=== PATIENT | male | born 1960 | race Caucasian/White ===

== ENCOUNTER 2020-09-11 07:03 | Emergency (ER) | payer MEDICAID, SELFPAY ==
--- NOTE | ~2020-09-11 | CT_ITS ---
EXAMINATION: CT ABDOMEN AND PELVIS WITH CONTRAST CLINICAL INFORMATION: Right lower quadrant pain. Rule out appendicitis. COMPARISON: Ultrasound abdomen 10/12/2012 TECHNIQUE: Multidetector volumetric images were obtained from the superior aspect of the liver through the pubic symphysis following administration 85 mL of Omnipaque 350 intravenous contrast. Sagittal and coronal reformatted images were obtained on the technologist's workstation. Oral contrast: No This CT examination was performed using dose optimization techniques as appropriate, variously including the following: Automated exposure control Adjustment of mA and/or kV according to patient size (this includes techniques or standardized protocols for targeted exams where dose is matched to indication/reason for exam; i.e. extremities or head) Use of iterative reconstruction technique DLP: 660 mGy-cm FINDINGS: LUNG BASES: There is bibasilar atelectasis. LIVER, GALLBLADDER, AND BILIARY TREE: No focal liver lesion. No biliary duct dilatation. Gallstones present. No acute pericholecystic inflammatory changes are seen. PANCREAS: Unremarkable. No acute inflammatory changes. SPLEEN: Unremarkable. ADRENAL GLANDS: Slightly bulky left adrenal gland. Right adrenal gland appears unremarkable. KIDNEYS AND URETERS: 2 mm calculus at the right ureterovesical junction. Mild right hydroureteronephrosis. [id number] right perinephric and mild right periureteral inflammatory changes. 1.4 cm left renal cyst. No left hydronephrosis. BLADDER: Unremarkable. GASTROINTESTINAL TRACT: Stomach is nondistended. No dilated small bowel loops. Moderate volume of fecal matter in the large colon. Scattered colonic diverticuli without diverticulosis. No pericolonic inflammatory changes. Appendix appears unremarkable. No free fluid. No free air. ABDOMINAL WALL: No significant hernia is appreciated. LYMPH NODES: No lymphadenopathy. VASCULAR: Normal caliber aorta. Scattered atherosclerotic vascular calcification. PELVIC VISCERA: Prostate measures 4.5 cm. Prostatic calcifications present. OSSEOUS STRUCTURES: Degenerative changes of the spine, more prominent at L4-L5, L5-S1. No acute or suspicious osseous abnormality. CT/CT abdomen pelvis w con IMPRESSION: 1. There is a 2 mm calculus at the right ureterovesicular junction, with mild right hydroureteronephrosis. [id number] right perinephric and mild right periureteral stranding. 2. Left renal 1.4 cm cyst. 3. Colonic diverticulosis without evidence of diverticulitis. Appendix appears unremarkable. 4. Cholelithiasis without CT evidence of cholecystitis. 5. Additional findings and details as above.
[2020-09-11 07:06] VITALS: BP 207/110; PULSE 71; RESP 18; TEMP 36.1; O2SAT 100; BMI 27.4
--- NOTE | 2020-09-11 07:49 | ECG_ITS ---
Test Reason : ABDOMINAL PAIN Blood Pressure : / mmHG Vent. Rate : 061 BPM Atrial Rate : 061 BPM P-R Int : 212 ms QRS Dur : 098 ms QT Int : 420 ms P-R-T Axes : 054 -16 019 degrees QTc Int : 422 ms Sinus rhythm with 1st degree A-V block Minimal voltage criteria for LVH, may be normal variant Borderline ECG No previous ECGs available Referred By: Darvin Aremnta Electronically Signed By:SAMANTHA GUILLEN MD
[2020-09-11] MEDS: 0.9 % Sodium Chloride 1,000 ML 999 ML IV (08:42)
[2020-09-11] MEDS: ondansetron HCL 4 MG/2 ML VIAL IVPUSH (08:42)
[2020-09-11] MEDS: Ketorolac Tromethamine 30 MG/ML VIAL IVPUSH (08:42)
[2020-09-11 08:55] LABS: MANUAL DIFF FLAG NO
[2020-09-11 08:58] LABS: Basophils Percent Auto 0.2 % (0-2); Eosinophils Absolute Auto 0.1 X10*3/uL (0.0-0.4); Eosinophils Percent Auto 1.3 % (0-4); Hematocrit 40.7 % (42-52); Hemoglobin 13.5 g/dl (14.0-18.0); Imm Gran Abs Auto 0.04 X10*3/uL (0.00-0.03); Imm Gran Pct Auto 0.4 % (0.0-0.4); Lymphocytes Absolute Auto 0.9 X10*3/uL (1.2-4.9); Lymphocytes Percent Auto 8.5 % (20-40); Mean Corpuscular HGB Conc 33.2 g/dl (31.0-36.0); Mean Corpuscular Hemoglobin 30.8 pg (27.0-33.0); Mean Corpuscular Volume 92.7 fL (80-98); Monocytes Absolute Auto 0.6 X10*3/uL (0.1-1.2); Monocytes Percent Auto 6.3 % (2-11); Neutrophils Absolute Auto 8.3 X10*3/uL (2.0-8.3); Neutrophils Percent Auto 83.3 % (45-73); Platelet Count 250 X10*3/uL (160-400); Red Blood Count 4.39 X10*6/uL (4.60-5.80)
[2020-09-11 09:30] VITALS: BP 133/72; PULSE 62; RESP 16; O2SAT 99
[2020-09-11 09:31] LABS: Lipase 18 U/L (8-78)
[2020-09-11 09:32] LABS: Alanine Aminotransferase 30 U/L (0-40); Albumin Level 4.4 g/dL (3.5-5.0); Alkaline Phosphatase 95 U/L (39-117); Anion Gap 15 (12-20); Aspartate Amino Transferase 24 U/L (5-37); Bilirubin Total 0.5 mg/dL (0.0-1.0); Blood Urea Nitrogen 21 mg/dL (9-16); Calcium 9.2 mg/dL (8.4-10.2); Carbon Dioxide 19 mmol/L (22-29); Chloride 107 mmol/L (96-108); Creatinine Clr Calc Pharmacy 91.5; Estimated Glomerular Filt Rate > 60; Glucose Random 100 mg/dL (60-115); Potassium 4.3 mmol/L (3.3-5.1); Sodium 137 mmol/L (135-145); Total Protein 7.1 g/dL (6.5-8.0)
[2020-09-11 10:26] LABS: Glucose Urine UA 100 MG/DL (NEG); Leukocyte Esterase Urine NEG (NEG); Nitrite Urine NEG (NEG); Urine Blood 2+ (NEG); Urine Ketones NEG (NEG); Urine Protein NEG (NEG-TRACE)
[2020-09-11 10:30] LABS: Appearance Urine CLEAR; Color Urine YELLOW
[2020-09-11] MEDS: iohexoL 350 MG/ML 100 ML INFUS..BTL IV (10:38)
[2020-09-11 10:39] LABS: Squamous Epithelial Cell Urine TRACE /LPF
[2020-09-11 11:03] LABS: INTERNATIONAL NORM RATIO 1.1 (0.9-1.1); Prothrombin Time 12.6 SEC (10.8-13.0)
--- NOTE | 2020-09-11 11:04 | ED_ITS ---
HPI - General Adult General Chief complaint: Abdominal Pain Stated complaint: Abd pain Time Seen by Provider: 09/11/20 07:45 Source: patient Mode of arrival: ambulatory Limitations: language barrier (Togolese speak) History of Present Illness HPI narrative: 60-year-old male who presents emergency department for evaluation of right lower quadrant pain. The patient states that the pain started suddenly at 4:00 a.m.. He describes the pain as a ?bad pain . He states the pain has been constant since onset and is 10/10, is associated nausea with no vomiting. He has dysuria and urge to urinate but is unable to urinate. He denies fever, chills, chest pain, shortness of breath, changes bowel movements. This is the patient's 1st episode of this type of pain. Related Data Previous Rx's Medication Instructions Recorded famotidine 20 mg tablet 20 mg PO DAILY #30 tab 04/22/20 Allergies Allergy/AdvReac Type Severity Reaction Status Date / Time No Known Allergies Allergy Verified 09/11/20 07:08 Review of Systems Review of Systems: Yes all other systems are reviewed and are negative Neurologic: Reports Abnormal speech present [facility] Past Medical History [facility] Narrative: Past medical history significant for hypertension, prostate cancer, arthritis, HIV positive. The patient smokes 1 pack of cigarettes per day times 20 years, denies alcohol use, he has a history of heroin use disorder and last use 3 months prior, is currently on methadone. Medical History HIV (human immunodeficiency virus infection) Social History Social History Advance Directives: No Advance Directives Information Provided: No Physical Exam Vital Signs: Vital Signs: Last Vital Signs Temp 97 F 09/11/20 07:06 Pulse 62 09/11/20 09:30 Resp 16 09/11/20 09:30 BP 133/72 09/11/20 09:30 Pulse Ox 99 09/11/20 09:30 Body Mass Index 27.4 Const: General: cooperative, in distress (Secondary to pain) moderate and anxious Orientation/consciousness: oriented to person and oriented to place Limitations: no limitations HENMT: Head: Yes normal to inspection, Yes normocephalic and Yes atraumatic Ears: external ears normal General nose exam: Normal external nose present Face and sinus: Yes normal facial exam Mouth: Normal oral and palatal mucosa present Throat: Yes posterior oropharynx normal Eyes: Periorbital: periorbital findings normal Eyelids: Yes eyelids normal Conjunctivae: conjunctivae normal Sclerae: sclerae normal Corneas: corneas normal Pupils: Equal, round and reactive pupils present Direct Ophthalmoscopy: normal light reflex Neck: Neck: Yes full ROM, Yes no lymphadenopathy, Yes no meningeal signs, Yes trachea midline and Yes supple Chest: Chest palpation & inspection: normal inspection of the chest and normal palpation of entire chest wall Resp: Effort & Inspection: normal respiratory effort and able to speak in complete sentences Auscultation: clear to auscultation bilaterally Cardio: Rate: regular rate Rhythm: regular rhythm Heart sounds: S1 normal heart sound present, S2 normal heart sound present and no murmurs GI: Inspection: Yes normal to inspection Palpation (GI): Soft to palpation, Tenderness to palpation present (GI) in the RLQ (Moderate), no guarding, not rigid and No hepatosplenomegaly present : General: Yes CVA tenderness on the right Back/Spine/Pelvis: Back: CVA tenderness Cervical Spine: normal cervical lordosis Thoracic/Lumbar Spine: thoracic and lumbar spine normal to inspection Skin: Lesions: no lesions Rashes: no rashes Wounds: no wounds Neuro: General: oriented to person, oriented to place and no meningeal signs Cranial nerves: Yes Equal, round and reactive pupils present Cognition (Neuro): normal cognition Speech: Abnormal speech present Motor exam (neuro): 5/5 motor strength present throughout Extrem: General: Yes normal to inspection and Yes full ROM Psych: Appearance: well kempt Mental Status: mental status grossly normal Speech and movement: Normal speech and movement present Affect: normal affect Attitude: cooperative Thought process: Normal thought process present Thought content: Normal thought content present Course Course Course Narrative: 60-year-old male who presents emergency department for evaluation of sudden onset of right lower quadrant abdominal pain, examination did reveal a right costovertebral tenderness in right lower quadrant tenderness. Differential includes was not limited to renal stone, appendicitis, colitis. Laboratory evaluation including CT scan of the abdomen pelvis without IV contrast was ordered. Patient's pain was treated with Toradol 30 mg IV and Zofran 4 mg IV. He also received normal saline IV x1 L. 1235: The patient's laboratory evaluation revealed a normal BUN and creatinine of 21 and 0.8. Urinalysis revealed 2+ blood and 10-[address] scan of the abdomen pelvis is consistent with a 2 mm ureteral stone at the UVJ. The patient did have several incidental findings including a left renal cyst, gallstones and diverticulosis which I did discuss with him. The patient is feeling significantly better and is pain free after the IV Toradol. He was advised to take ibuprofen and Tylenol for pain. Was advised to strain his urine and follow up with our on-call urologist. Medical Decision Making Lab Data Result diagrams: 09/11/20 08:28 09/11/20 08:28 Labs: Lab Results 09/11/20 09/11/20 09/11/20 Range/Units 08:28 08:28 08:28 WBC 10.0 (4.8-10.8) X10*3/uL RBC 4.39 L (4.60-5.80) X10*6/uL Hgb 13.5 L (14.0-18.0) g/dl Hct 40.7 L (42-52) % MCV 92.7 (80-98) fL MCH 30.8 (27.0-33.0) pg MCHC 33.2 (31.0-36.0) g/dl RDW 14.0 (11.0-16.0) % Plt Count 250 (160-400) X10*3/uL MPV 10.0 (9.4-12.4) fL Immature Gran % (Auto) 0.4 (0.0-0.4) % Neut % (Auto) 83.3 H (45-73) % Lymph % (Auto) 8.5 L (20-40) % [place] % (Auto) 6.3 (2-11) % Eos % (Auto) 1.3 (0-4) % Baso % (Auto) 0.2 (0-2) % Lymph # (Auto) 0.9 L (1.2-4.9) X10*3/uL [place] # (Auto) 0.6 (0.1-1.2) X10*3/uL Eos # (Auto) 0.1 (0.0-0.4) X10*3/uL Baso # (Auto) 0.0 (0.0-0.2) X10*3/uL Abs Immat Gran (auto) 0.04 H (0.00-0.03) X10*3/uL Absolute Neuts (auto) 8.3 (2.0-8.3) X10*3/uL Absolute Nucleated RBC 0.000 (0.0-0.012) X10*3/uL Nucleated RBC % (auto) 0.0 (0.0-0.2) /100WBC PT (10.8-13.0) SEC INR (0.9-1.1) APTT (24.1-38.0) SEC Sodium 137 (135-145) mmol/L Potassium 4.3 (3.3-5.1) mmol/L Chloride 107 (96-108) mmol/L Carbon Dioxide 19 L (22-29) mmol/L Anion Gap 15 (12-20) BUN 21 H (9-16) mg/dL Creatinine 0.86 (0.5-1.4) mg/dL Estim Creat Clear Calc 91.5 Estimated GFR > 60 Random Glucose 100 (60-115) mg/dL Calcium 9.2 (8.4-10.2) mg/dL Total Bilirubin 0.5 (0.0-1.0) mg/dL AST 24 (5-37) U/L ALT 30 (0-40) U/L Alkaline Phosphatase 95 (39-117) U/L Total Protein 7.1 (6.5-8.0) g/dL Albumin 4.4 (3.5-5.0) g/dL Lipase 18 (8-78) U/L Urine Color Urine Appearance Urine pH (5.0-8.0) Ur Specific [place] (1.005-1.025) Urine Protein (NEG-TRACE) MG/DL Urine Glucose (UA) (NEG) MG/DL Urine Ketones (NEG) MG/DL Urine Blood (NEG) Urine Nitrite (NEG) Ur Leukocyte Esterase (NEG) Urine RBC (0) /HPF Urine WBC (0-4) /HPF Ur Squamous Epith Cells /LPF Urine Bacteria /LPF 09/11/20 09/11/20 Range/Units 10:18 10:47 WBC (4.8-10.8) X10*3/uL RBC (4.60-5.80) X10*6/uL Hgb (14.0-18.0) g/dl Hct (42-52) % MCV (80-98) fL MCH (27.0-33.0) pg MCHC (31.0-36.0) g/dl RDW (11.0-16.0) % Plt Count (160-400) X10*3/uL MPV (9.4-12.4) fL Immature Gran % (Auto) (0.0-0.4) % Neut % (Auto) (45-73) % Lymph % (Auto) (20-40) % [place] % (Auto) (2-11) % Eos % (Auto) (0-4) % Baso % (Auto) (0-2) % Lymph # (Auto) (1.2-4.9) X10*3/uL [place] # (Auto) (0.1-1.2) X10*3/uL Eos # (Auto) (0.0-0.4) X10*3/uL Baso # (Auto) (0.0-0.2) X10*3/uL Abs Immat Gran (auto) (0.00-0.03) X10*3/uL Absolute Neuts (auto) (2.0-8.3) X10*3/uL Absolute Nucleated RBC (0.0-0.012) X10*3/uL Nucleated RBC % (auto) (0.0-0.2) /100WBC PT 12.6 (10.8-13.0) SEC INR 1.1 (0.9-1.1) APTT 36.5 (24.1-38.0) SEC Sodium (135-145) mmol/L Potassium (3.3-5.1) mmol/L Chloride (96-108) mmol/L Carbon Dioxide (22-29) mmol/L Anion Gap (12-20) BUN (9-16) mg/dL Creatinine (0.5-1.4) mg/dL Estim Creat Clear Calc Estimated GFR Random Glucose (60-115) mg/dL Calcium (8.4-10.2) mg/dL Total Bilirubin (0.0-1.0) mg/dL AST (5-37) U/L ALT (0-40) U/L Alkaline Phosphatase (39-117) U/L Total Protein (6.5-8.0) g/dL Albumin (3.5-5.0) g/dL Lipase (8-78) U/L Urine Color YELLOW Urine Appearance CLEAR Urine pH 7.0 (5.0-8.0) Ur Specific [place] 1.010 (1.005-1.025) Urine Protein NEG (NEG-TRACE) MG/DL Urine Glucose (UA) 100 H (NEG) MG/DL Urine Ketones NEG (NEG) MG/DL Urine Blood 2+ H (NEG) Urine Nitrite NEG (NEG) Ur Leukocyte Esterase NEG (NEG) Urine RBC 10-14 H (0) /HPF Urine WBC 1-4 (0-4) /HPF Ur Squamous Epith Cells TRACE /LPF Urine Bacteria NONE /LPF Discharge Plan Discharge Clinical Impression: Hydronephrosis with ureteral calculus, Renal colic on right side Patient Disposition: Home, Self-Care Instructions: Kidney Stones (ED), How to Strain Your Urine (ED) Additional Instructions: Your blood work was unremarkable. Your urinalysis revealed blood in your urine which is consistent with a kidney stone. The CT scan of your abdomen pelvis without IV contrast revealed a 2 mm the left ureteral (the tube the connection kidney to her bladder) stone at the UVJ (right where the tube from your kidney connects to the bladder). Take ibuprofen 200 mg pills, 3 pills every 6 hours as needed for pain. Take Tylenol (acetaminophen) 500 mg pills, 2 pills every 4 to 6 hours as needed for pain. Follow-up with our on-call urologist within 1-2 weeks. Please return to the emergency department if your symptoms get worse or if you develop any symptoms that are concerning to you. The CT scan also revealed the following incidental findings which are not related to your pain but you need to follow-up with your doctor did discuss these further. 1. Stones in your gallbladder 2. Left kidney cyst 3. Diverticulosis (small pockets in your colon) Prescriptions: No Action famotidine 20 mg tablet 20 mg PO DAILY Qty: 30 RF: 3 Referrals: Casey Argueta MD [Physician] - 2 weeks (Acute 2 mm right ureteral stone at the UVJ, left renal cyst)
[2020-09-11 11:06] LABS: Partial Thromboplastin Time 36.5 SEC (24.1-38.0)
== END 2020-09-11 12:51 | disposition home or self-care (01) ==
PROVIDERS: Emergency Provider Emergency Medicine Emergency Medical Services; PCP Internal Medicine Geriatric Medicine
DX: N13.2 Hydronephrosis with renal and ureteral calculous obstruction (principal); R10.31 Right lower quadrant pain; F17.210 Nicotine dependence, cigarettes, uncomplicated; F11.11 Opioid abuse, in remission; Z79.899 Other long term (current) drug therapy; Z71.6 Tobacco abuse counseling
CPT/HCPCS: 36415; 74177; 80053; 81001; 83690; 85025; 85610; 85730; 93005; 96361; 96365; 96375; 99284; J1885; J2405; Q9967

== ENCOUNTER 2020-09-30 14:41 | Outpatient (REF) | payer MEDICAID, SELFPAY | END 2020-09-30 14:42 | disposition home or self-care (01) | LOC: CF 14:41 | PROVIDERS: PCP Internal Medicine Geriatric Medicine; Visit Provider Urology | DX: N20.0 Calculus of kidney (principal) | CPT/HCPCS: 99202 ==

== ENCOUNTER 2020-10-05 15:21 | Outpatient (REF) | payer MEDICAID, SELFPAY ==
[2020-10-10 00:56] LABS: Stone Source KIDNEY
== END 2020-10-05 15:22 | disposition home or self-care (01) ==
LOC: HO.LAB 15:21
PROVIDERS: Visit Provider Urology
DX: N20.0 Calculus of kidney (principal)
CPT/HCPCS: 82365; 88300

== ENCOUNTER 2020-10-29 14:16 | Outpatient (REF) | payer MEDICAID, SELFPAY ==
[2020-10-29 15:28] LABS: COVID-19 Test Negative (Negative)
== END 2020-10-29 14:17 | disposition home or self-care (01) ==
LOC: HO.LAB 14:16
PROVIDERS: Visit Provider Internal Medicine
DX: Z20.822 Contact with and (suspected) exposure to COVID-19 (principal)
CPT/HCPCS: 36415; 87635; C9803

== ENCOUNTER → 2020-11-03 10:11 | Outpatient (BNVA) | payer MEDICAID, SELFPAY | PROVIDERS: PCP Internal Medicine Geriatric Medicine; Visit Provider Nurse Practitioner ==

== ENCOUNTER 2021-03-25 12:08 | Outpatient (REF) | payer MEDICAID, SELFPAY ==
--- NOTE | ~2021-03-25 | US_ITS ---
EXAMINATION: US RETROPERITONEAL LIMITED (RENAL ONLY) CLINICAL INFORMATION: Calculus of kidney. COMPARISON: CT abdomen and pelvis 09/11/2020. Ultrasound abdomen 10/12/2012. TECHNIQUE: Real-time imaging of the kidneys. FINDINGS: RIGHT KIDNEY: 10.1 x 6.3 x 5.9 cm (SAG x AP x TRV). The kidney is normal in size, contour, and echogenicity. Renal cortical thickness is normal. No calculi or focal parenchymal lesions. No hydronephrosis. LEFT KIDNEY: 10.1 x 5.2 x 5.3 cm (SAG x AP x TRV). The kidney is normal in size, contour, and echogenicity. Renal cortical thickness is normal. There is a 1.2 x 1.3 x 1.2 cm cyst in the upper pole. No renal calculi or hydronephrosis. US/US renal BI IMPRESSION: No stone seen. Small left renal cyst.
== END 2021-03-25 12:09 | disposition home or self-care (01) ==
LOC: HO.US 12:08
PROVIDERS: Visit Provider Urology
DX: N20.0 Calculus of kidney (principal)
CPT/HCPCS: 76775

== ENCOUNTER → 2021-04-08 12:12 | Outpatient (BNVA) | payer MEDICAID, SELFPAY | PROVIDERS: PCP Internal Medicine Geriatric Medicine; Visit Provider Urology ==

== ENCOUNTER → 2021-04-19 14:37 | Outpatient (BNVA) | payer MEDICAID, SELFPAY | PROVIDERS: PCP Internal Medicine Geriatric Medicine; Visit Provider Nurse Practitioner ==

== ENCOUNTER 2022-02-16 10:42 | Outpatient (REF) | payer MEDICAID, SELFPAY ==
[2022-02-16 11:15] LABS: MANUAL DIFF FLAG NO
[2022-02-16 11:25] LABS: Basophils Percent Auto 0.3 % (0-2); Eosinophils Absolute Auto 0.2 X10*3/uL (0.0-0.4); Eosinophils Percent Auto 2.4 % (0-4); Hematocrit 37.4 % (42.0-52.0); Hemoglobin 12.3 g/dl (14.0-18.0); Imm Gran Abs Auto 0.04 X10*3/uL (0.00-0.03); Imm Gran Pct Auto 0.6 % (0.0-0.4); Lymphocytes Absolute Auto 1.7 X10*3/uL (1.2-4.9); Lymphocytes Percent Auto 23.1 % (20-40); Mean Corpuscular HGB Conc 32.9 g/dl (31.0-36.0); Mean Corpuscular Hemoglobin 29.4 pg (27.0-33.0); Mean Corpuscular Volume 89.5 fL (80.0-98.0); Monocytes Absolute Auto 0.9 X10*3/uL (0.1-1.2); Neutrophils Absolute Auto 4.4 x10*3/uL (2.0-8.3); Neutrophils Percent Auto 61.6 % (45-73); Platelet Count 309 X10*3/uL (160-400); Red Blood Count 4.18 X10*6/uL (4.60-5.80); Red Cell Distribution Width 15.1 % (11.0-16.0); White Blood Count 7.1 X10*3/uL (4.8-10.8)
[2022-02-16 14:46] LABS: Anion Gap 16 (12-20); Blood Urea Nitrogen 20 mg/dL (9-16); Calcium 9.6 mg/dL (8.4-10.2); Carbon Dioxide 26 mmol/L (22-29); Chloride 104 mmol/L (96-108); Estimated Glomerular Filt Rate > 60; Glucose Random 118 mg/dL (60-115); Potassium 3.9 mmol/L (3.3-5.1); Sodium 142 mmol/L (135-145)
== END 2022-02-16 10:43 | disposition home or self-care (01) ==
LOC: HO.LAB 10:42
PROVIDERS: PCP Internal Medicine Geriatric Medicine; Visit Provider Family Medicine
DX: R60.0 Localized edema (principal); R31.29 Other microscopic hematuria; Z12.5 Encounter for screening for malignant neoplasm of prostate
CPT/HCPCS: 36415; 80048; 84153; 85025

== ENCOUNTER 2022-04-22 09:53 | Outpatient (REF) | payer MEDICAID, SELFPAY ==
--- NOTE | ~2022-04-22 | US_ITS ---
EXAMINATION: US RETROPERITONEAL LIMITED (RENAL ONLY) CLINICAL INFORMATION: Calculus of kidney. COMPARISON: Renal ultrasound 03/25/2021. CT abdomen and pelvis 09/11/2020. Ultrasound abdomen complete 10/12/2012. TECHNIQUE: Real-time imaging of the kidneys. FINDINGS: RIGHT KIDNEY: 10.3 x 5.8 x 5.1 cm (SAG x AP x TRV). The kidney is normal in size, contour, and echogenicity. Renal cortical thickness is normal. No calculi or focal parenchymal lesions. No hydronephrosis. LEFT KIDNEY: 10.1 x 5.4 x 5.4 cm (SAG x AP x TRV). The kidney is normal in size, contour, and echogenicity. Renal cortical thickness is normal. No renal calculi or hydronephrosis. There is anechoic cyst upper pole measuring 1.6 x 1.4 x 1.4 cm. US/US renal BI IMPRESSION: No echogenic stones, cysts or hydronephrosis. Anechoic cyst upper pole left kidney measuring 1.6 cm. On the last ultrasound of 03/25/2021, the cyst measured 1.3 cm.
== END 2022-04-22 09:54 | disposition home or self-care (01) ==
LOC: HO.US 09:53
PROVIDERS: Visit Provider Urology
DX: N20.0 Calculus of kidney (principal)
CPT/HCPCS: 76775

== ENCOUNTER 2023-03-10 13:39 | Outpatient (AMB) | payer MEDICAID, SELFPAY ==
--- NOTE | 2023-03-10 13:41 | A.OFFVIS_ITS ---
Intake Vital Signs 03/10/23 13:50 Height 5 ft 6 in Weight 188 lb 4.396 oz BMI 30.4 BP 190/75 H Blood Pressure Location Rt brachial Position Sitting Pulse 57 Intake Visit Reasons: Med Refill Intake Note: Patient presents to in office visit today in follow up of GERD. CC: Nausea in the mornings, GERD. Pt would like to obtain Ondansetron for nausea. 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 He continues on his omeprazole 20mg qam and famotidine 40mg qhs with good control of his GERD. He also continues on his senna with good control of his bowels. He denies any other GI problems, except for the nausea for which she was treated related to his anti-retroviral medications for his HIV infection. He is agreeable to a 6 month follow-up. (2) Constipation: ?Code(s): K59.00 - Constipation, unspecified ? ? ? Medications:?Refilled sennosides (senna) 17.2 mg (2 x 8.6 mg) PO BEDTIME 30 days 60 caps 6RF c onstipation K59.00 - Constipat ion, unspecified ? famotidine (Pepcid ) 40 mg? PO DAILY 3 0 days 30 tabs 6RF K21.9 - Gastro-eso phageal reflux dis ease without esoph agitis CORRESPONDENCE On 02/09/23 @ 07:46 Kya De Leon Wrote To Kya De Leon (2) No, they need to call their PCP (if you refill it, they likely will not show up for the appt). Or I will refill it when I see them On 02/08/23 @ 14:01 Akiko Conrad Wrote To Moises patient came into office to request refill for Zofran. patient last seen by you in . patient scheduled 02/17/23. please advise if okay to send refill. On 02/08/23 @ 13:56 Brielle Flaherty Wrote To Akiko Conrad has appointment 02/17 ondansetron HCl 4 mg tablet (Zofran) - 4 mg PO DAILY 30 tabs 6RF 30 days Last Rx written: 11/03/20 MoisesOctober TODAY'S VISIT [place] #Monica Daily He is not doing so well as he ran out of his medications. He has GERD and nausea. This was ok when he was on famotidine and senna. NO new medical conditions. Same pharmacy. MISTAKENLY THOUGHT THAT BECAUSE HE was checked for prostate cancer that this was the same is being screened for colon cancer. This prompts Education about the prostate being part of the urinary system which frequently confused this gentleman because the prostate exam occurs to the rectum. After explained to him he is quite agreeable to having a colonoscopy scheduled. He will need to go to update his labs for anesthesia and sedation purposes. There are no prior problems with anesthesia or sedation. He denies any cardiac or respiratory problems. He has HIV and is on antiretroviral therapy there are no other infectious disease problems known. He is also on chronic methadone treatment. There is no known family history of colon cancer or polyps. Return office visit in 6 weeks to make sure the medications are appropriately controlling his symptoms. [facility] Medical History (Updated 03/10/23 @ 14:12 by YAAKOV Davis) Prostate cancer HIV (human immunodeficiency virus infection) Surgical History History of esophagogastroduodenoscopy (EGD) Hx of removal of cyst Family History Family/Other No problems noted. Social History (Reviewed 03/10/23 @ 13:55 by Kehinde Perdomo [facility] Alcohol intake: current Alcohol intake frequency: does not drink Review of Systems Const Denies fatigue, Denies fever(s), Denies night sweats, Reports poor appetite and Denies weight loss ENT Reports Normal hearing present, Denies dental pain, Denies dysphagia, Denies hearing loss, Denies mouth pain, Denies odynophagia, Denies throat swelling, Denies tongue swelling and Reports other (Dentition adequate) Card Reports no additional complaints Resp Reports no additional complaints GI Denies abdominal pain, Denies melena, Denies bloating, Denies hematochezia, Reports constipation, Denies GI cramping, Denies dysphagia, Denies excessive flatus, Denies early satiety, Reports heartburn, Denies diarrhea, Reports nausea, Denies odynophagia, Denies vomiting and Denies hematemesis Skin/Breast Denies pruritus, Denies lesions, Denies rash and Denies jaundice Neuro Reports Normal hearing present and Denies Abnormal speech present Endo Denies fatigue Aller/Immun Denies throat swelling and Denies tongue swelling Physical Exam Vital Signs: Last Vital Signs Pulse 57 03/10/23 13:50 BP 190/75 H 03/10/23 13:50 BMI result Body Mass Index 30.4 Const General: cooperative, no acute distress, well developed and well groomed Nutritional Appearance: well nourished and obese Orientation/consciousness: oriented to person, oriented to place and oriented to time Limitations: language barrier HEENT Head: Yes normocephalic and Yes atraumatic Eyes General: appearance normal, both eyes and all related structures Pupils: Equal, round and reactive pupils present Neck Neck: Yes normal visual inspection and Yes no lymphadenopathy Thyroid: Thyroid normal Resp Effort & Inspection: normal respiratory effort and able to speak in complete sentences Auscultation: clear to auscultation bilaterally Cardio Rate: regular rate Rhythm: regular rhythm Heart sounds: Normal, physiologic split S2 sound present Peripheral pulses: radial pulses present and posterior tibial pulses present GI Inspection: No distended, No Abdominal panniculus present and Yes obesity Palpation (GI): Soft to palpation, nontender, no guarding, not rigid and No hepatosplenomegaly present Percussion: Yes normal to percussion Auscultation: normal bowel sounds Rectal Exam - Male: Yes deferred Skin General skin exam: no rashes or lesions noted, turgor normal, skin not dry, no jaundice, No spider nevi and no striae Rashes: no rashes Nails: normal Neuro General: oriented to person, oriented to place and oriented to time Cranial nerves: Yes Equal, round and reactive pupils present and Yes Normal hearing present Speech: No Abnormal speech present Extrem General: Yes normal to inspection, No clubbing, No cyanosis and No edema Psych Appearance: grossly normal and well kempt Mental Status: mental status grossly normal Speech and movement: Normal speech and movement present Affect: normal affect Attitude: cooperative Thought process: Normal thought process present and not confabulating Thought content: Normal thought content present Insight: Limited insight present (Psych) Judgement: Limited judgement present (Psych) Assessment & Plan Assessment & Plan (1) GERD (gastroesophageal reflux disease): Code(s): K21.9 - Gastro-esophageal reflux disease without esophagitis Plan: [place] #Armaneo Live He is not doing so well as he ran out of his medications. He has GERD and nausea. This was ok when he was on famotidine and senna. NO new medical conditions. Same pharmacy. MISTAKENLY THOUGHT THAT BECAUSE HE was checked for prostate cancer that this was the same is being screened for colon cancer. This prompts Education about the prostate being part of the urinary system which frequently confused this gentleman because the prostate exam occurs to the rectum. After explained to him he is quite agreeable to having a colonoscopy scheduled. He will need to go to update his labs for anesthesia and sedation purposes. There are no prior problems with anesthesia or sedation. He denies any cardiac or respiratory problems. He has HIV and is on antiretroviral therapy there are no other infectious disease problems known. He is also on chronic methadone treatment. There is no known family history of colon cancer or polyps. Return office visit in 6 weeks to make sure the medications are appropriately controlling his symptoms. (2) Constipation: Code(s): K59.00 - Constipation, unspecified (3) Prostate cancer: Comment: txed at [facility] 4 years ago Code(s): C61 - Malignant neoplasm of prostate (4) Pre-op examination: Code(s): Z01.818 - Encounter for other preprocedural examination (5) Colon cancer screening: Comment: No record of colonoscopy or screening in our system I suggest she discuss this with his primary care provider as he may have had a different facility Code(s): Z. - Encounter for screening for malignant neoplasm of colon Orders: Orders Comprehensive Met. Panel 03/10/23 Z - Encounter for other preprocedural examination Complete Blood Count Auto Diff 03/10/23 - Encounter for other preprocedural examination Colonoscopy - GI Use Only 03/10/23 Z - Encounter for other preprocedural examination Medications: New peg 3350-electrolytes 236-22.74-6.74 -5.86 gram (Golytely) until fecal effluent is clear; do not exceed a total volume of 2,000 mL 240 mL PO Q10M 4,000 mL 0RF 1 day Z06.26 - Encounter for screening for malignant neoplasm of colon Changed From ondansetron HCl 4 mg PO DAILY 30 days 30 tabs 6RF nausea and vomiting R11.2 - Nausea with vomiting, unspecified To ondansetron HCl 4 mg PO DAILY 30 tabs 6RF nausea and vomiting 30 days R11.2 - Nausea with vomiting, unspecified Refilled famotidine (Pepcid) 40 mg PO DAILY 30 tabs 6RF 30 days K21.9 - Gastro-esophageal reflux disease without esophagitis sennosides (senna) 17.2 mg (2 x 8.6 mg) PO BEDTIME 60 caps 6RF constipation 30 days K59.00 - Constipation, unspecified Coding Level of Care Code Est Pt Level 4 (66645) Diagnoses GERD (gastroesophageal reflux disease) K21.9 Constipation K59.00 Prostate cancer C61 Pre-op examination Z.818 Colon cancer screening Z06.26
[2023-03-10 13:50] VITALS: BP 190/75; PULSE 57; BMI 30.4
== END 2023-03-10 14:46 | disposition home or self-care (01) ==
PROVIDERS: PCP Internal Medicine Geriatric Medicine; Visit Provider Nurse Practitioner
DX: K21.9 Gastro-esophageal reflux disease without esophagitis (principal); K59.00 Constipation, unspecified; C61 Malignant neoplasm of prostate; Z01.818 Encounter for other preprocedural examination; Z12.11 Encounter for screening for malignant neoplasm of colon
CPT/HCPCS: 99214

== ENCOUNTER → 2023-03-10 13:39 | Outpatient (BNVA) | payer MEDICAID, SELFPAY | PROVIDERS: PCP Internal Medicine Geriatric Medicine; Visit Provider Nurse Practitioner | DX: Z01.818 Encounter for other preprocedural examination (principal); K21.9 Gastro-esophageal reflux disease without esophagitis; K59.00 Constipation, unspecified; C61 Malignant neoplasm of prostate | CPT/HCPCS: 99212 ==

== ENCOUNTER 2023-04-04 14:43 | Outpatient (REF) | payer MEDICAID, SELFPAY ==
[2023-04-04 15:01] LABS: MANUAL DIFF FLAG NO
[2023-04-04 15:38] LABS: Basophils Percent Auto 0.4 % (0-2); Eosinophils Absolute Auto 0.2 X10*3/uL (0.0-0.4); Hematocrit 39.8 % (42.0-52.0); Hemoglobin 13.1 g/dl (14.0-18.0); Imm Gran Abs Auto 0.05 X10*3/uL (0.00-0.03); Imm Gran Pct Auto 0.6 % (0.0-0.4); Mean Corpuscular HGB Conc 32.9 g/dl (31.0-36.0); Mean Corpuscular Hemoglobin 30.7 pg (27.0-33.0); Mean Corpuscular Volume 93.2 fL (80.0-98.0); Mean Platelet Volume 10.4 fL (9.4-12.4); Monocytes Absolute Auto 0.9 X10*3/uL (0.1-1.2); Monocytes Percent Auto 9.5 % (2-11); Neutrophils Absolute Auto 5.9 x10*3/uL (2.0-8.3); Neutrophils Percent Auto 65.5 % (45-73); Platelet Count 253 X10*3/uL (160-400); Red Blood Count 4.27 X10*6/uL (4.60-5.80); Red Cell Distribution Width 15.7 % (11.0-16.0)
[2023-04-04 16:51] LABS: Alanine Aminotransferase 32 U/L (0-40); Albumin Level 4.4 g/dL (3.5-5.0); Alkaline Phosphatase 80 U/L (39-117); Anion Gap 12 (12-20); Aspartate Amino Transferase 21 U/L (5-37); Bilirubin Total 0.3 mg/dL (0.0-1.0); Blood Urea Nitrogen 18 mg/dL (9-16); Carbon Dioxide 28 mmol/L (22-29); Chloride 106 mmol/L (96-108); Estimated Glomerular Filt Rate > 60; Glucose Random 105 mg/dL (60-115); Potassium 3.8 mmol/L (3.3-5.1); Sodium 142 mmol/L (135-145); Total Protein 7.4 g/dL (6.5-8.0)
== END 2023-04-04 14:44 | disposition home or self-care (01) ==
LOC: HO.LAB 14:43
PROVIDERS: Visit Provider Nurse Practitioner
DX: Z01.818 Encounter for other preprocedural examination (principal)
CPT/HCPCS: 36415; 80053; 85025

== ENCOUNTER 2023-04-21 11:09 | Outpatient (REF) | payer MEDICAID, SELFPAY ==
--- NOTE | ~2023-04-21 | XR_ITS ---
EXAMINATION: XR hand LT min 3V, XR hand RT min 3V CLINICAL INFORMATION: Pain and swelling COMPARISON: Wrist radiographs 11/27/2006 TECHNIQUE: 3 views of the bilateral hands FINDINGS: RIGHT HAND: No fracture or dislocation. Joint spaces are maintained. No cortical erosion. Soft tissue swelling along the dorsum of the hand. LEFT HAND: No fracture or dislocation. Joint spaces are maintained. No cortical erosion. Marked soft tissue swelling along the dorsum of the hand. XR/XR hand RT min 3V IMPRESSION: 1. Marked soft tissue swelling along the dorsum of the left hand and soft tissue swelling along the dorsum of the right hand, without definite acute underlying osseous abnormality.
--- NOTE | ~2023-04-21 | XR_ITS ---
EXAMINATION: XR hand LT min 3V, XR hand RT min 3V CLINICAL INFORMATION: Pain and swelling COMPARISON: Wrist radiographs 11/27/2006 TECHNIQUE: 3 views of the bilateral hands FINDINGS: RIGHT HAND: No fracture or dislocation. Joint spaces are maintained. No cortical erosion. Soft tissue swelling along the dorsum of the hand. LEFT HAND: No fracture or dislocation. Joint spaces are maintained. No cortical erosion. Marked soft tissue swelling along the dorsum of the hand. XR/XR hand LT min 3V IMPRESSION: 1. Marked soft tissue swelling along the dorsum of the left hand and soft tissue swelling along the dorsum of the right hand, without definite acute underlying osseous abnormality.
== END 2023-04-21 11:10 | disposition home or self-care (01) ==
LOC: HO.HHCL 11:09
PROVIDERS: Visit Provider Internal Medicine Geriatric Medicine
DX: R19.07 Generalized intra-abdominal and pelvic swelling, mass and lump (principal); R60.0 Localized edema; M79.641 Pain in right hand; M79.642 Pain in left hand
CPT/HCPCS: 73130; 82043; 82570

== ENCOUNTER 2023-04-25 14:01 | Outpatient (REF) | payer MEDICAID, SELFPAY ==
[2023-04-28 14:18] LABS: HCV Log PCR <1.18 NOT DETECTED Log IU/mL (NOT DETECTED); HepC Viral Load <15 NOT DETECTED IU/mL (NOT DETECTED)
== END 2023-04-25 14:02 | disposition home or self-care (01) ==
LOC: HO.LAB 14:01
PROVIDERS: PCP Internal Medicine Geriatric Medicine; Visit Provider Internal Medicine Geriatric Medicine
DX: R19.07 Generalized intra-abdominal and pelvic swelling, mass and lump (principal); R60.0 Localized edema; M79.641 Pain in right hand; M79.642 Pain in left hand
CPT/HCPCS: 36415; 80053; 83880; 85025; 86431; 87522

== ENCOUNTER 2023-05-04 14:48 | Outpatient (AMB) | payer MEDICAID, SELFPAY ==
[2023-05-04 14:50] VITALS: BP 114/56; PULSE 79; BMI 31.6
--- NOTE | 2023-05-04 14:50 | MHC.OFFVIS ---
Intake Vital Signs 05/04/23 14:50 Height 5 ft 6 in Weight 195 lb 12.328 oz BMI 31.6 BP 114/56 L Blood Pressure Location Rt brachial Position Sitting Pulse 79 Intake Visit Reasons: 6 weeks follow up Intake Note: Patient presents to in office visit today in follow up of GERD. CC: Patient reports occasional nausea, and heartburn. He states he would like to get the disintegrating ondansentron instead of the one he was prescribed. Denies other GI symptoms. 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 He has GERD and nausea. This was ok when he was on famotidine and senna. NO new medical conditions. Same pharmacy. MISTAKENLY THOUGHT THAT BECAUSE HE was checked for prostate cancer that this was the same is being screened for colon cancer. This prompts Education about the prostate being part of the urinary system which frequently confused this gentleman because the prostate exam occurs to the rectum. After explained to him he is quite agreeable to having a colonoscopy scheduled. He will need to go to update his labs for anesthesia and sedation purposes. There are no prior problems with anesthesia or sedation. He denies any cardiac or respiratory problems. He has HIV and is on antiretroviral therapy there are no other infectious disease problems known. He is also on chronic methadone treatment. There is no known family history of colon cancer or polyps. Return office visit in 6 weeks to make sure the medications are appropriately controlling his symptoms. (2) Constipation: Code(s): K59.00 - Constipation, unspecified (3) Prostate cancer: Comment: txed at [facility] 4 years ago Code(s): C61 - Malignant neoplasm of prostate (4) Pre-op examination: Code(s): Z01.818 - Encounter for other preprocedural examination (5) Colon cancer screening: Comment: No record of colonoscopy or screening in our system I suggest she discuss this with his primary care provider as he may have had a different facility Code(s): Z12.11 - Encounter for screening for malignant neoplasm of colon Orders: Orders Comprehensive Met. Panel 03/10/23 Z01.818 - Encounte r for other prepro cedural examinatio n Complete Blood Cou nt Auto Diff 03/10/23 Z01.818 - Encounte r for other prepro cedural examinatio n Colonoscopy - GI U se Only 03/10/23 Z01.818 - Encounte r for other prepro cedural examinatio n Medications: New peg 3350-electroly buddy 236-22.74-6.74 -5.86 gram (Golyt siva) until feca l effluent is pietro r; do not exceed a total volume of 2 ,000 mL 240 mL PO Q10M 4,0 00 mL 0RF 1 day Z12.11 - Encounter for screening for malignant neoplas m of colon Changed From ondansetron HCl 4 mg PO DAILY 30 days 30 tabs 6RF n ausea and vomiting R11.2 - Nausea wit h vomiting, unspec ified To ondansetron HCl 4 mg PO DAILY 30 t abs 6RF nausea and vomiting 30 days R11.2 - Nausea wit h vomiting, unspec ified Refilled famotidine (Pepcid ) 40 mg PO DAILY 30 tabs 6RF 30 days K21.9 - Gastro-eso phageal reflux dis ease without esoph agitis sennosides (senna) 17.2 mg (2 x 8.6 m g) PO BEDTIME 60 c aps 6RF constipati on 30 days K59.00 - Constipat ion, unspecified LABS: Laboratory Tests 04/25/23 14:21 WBC 7.1 Hgb 12.9 L Hct 38.3 L MCV 92.3 MCH 31.1 Plt Count 314 Estimated GFR > 60 Total Bilirubin 0.3 AST 23 ALT 38 Alkaline Phosphat ase 77 Hep C Viral Load <15 NOT DETECTED Hep C Viral Load L og <1.18 NOT DETECTE D COLONOSCOPY Scheduled for 05/31 but he has not received the letter promised BIOPSY CORRESPONDENCE On 02/09/23 @ 07:46 Kya De Leon Wrote To Kya De Leon (2) No, they need to call their PCP (if you refill it, they likely will not show up for the appt). Or I will refill it when I see them On 02/08/23 @ 14:01 Akiko Conrad Wrote To Moises patient came into office to request refill for Zofran. patient last seen by you in . patient scheduled 02/17/23. please advise if okay to send refill. On 02/08/23 @ 13:56 Brielle Flaherty Wrote To Akiko Conrad has appointment 02/17 ondansetron HCl 4 mg tablet (Zofran) - 4 mg PO DAILY 30 tabs 6RF 30 days Last Rx written: 11/03/20 MoisesOctober TODAY'S VISIT [place] #Christen Parker He still struggles with nausea dominic first thing in the am, and is requesting more zofran....BUT he is on methadone and this has too great a risk with prolongation of QT interval. Reglan does not have the same contraindication and although there is risk of sedation with his other medications this seems the lesser of the 2 evil spirits I will try giving him Reglan but I will not prescribe him Zofran, hydroxyzine, Phenergan or Compazine because of the QT contraindication. I explained this to him. He has a date upcoming for his colonoscopy and is in May. He is looking for them to [place] letter which I think has not happened yet just because were not close enough to the anticipated date. He verifies that he does have the prep at home. He feels like he is doing well on his famotidine for his GERD and his senna for the constipation. Return office visit in 3 months and of course after the colonoscopy. [facility] Medical History (Updated 05/04/23 @ 15:24 by YAAKOV Davis) Prostate cancer HIV (human immunodeficiency virus infection) Surgical History History of esophagogastroduodenoscopy (EGD) Hx of removal of cyst Family History Family/Other No problems noted. Social History Alcohol intake: current Alcohol intake frequency: does not drink Review of Systems Const Denies fatigue, Denies fever(s), Denies night sweats, Denies poor appetite and Denies weight loss Eyes Details: glasses Reports requires corrective lenses ENT Reports Normal hearing present, Denies dental pain, Denies dysphagia, Denies hearing loss, Denies mouth pain, Denies odynophagia, Denies throat swelling, Denies tongue swelling and Reports other (Dentition adequate) Card Reports no additional complaints Resp Reports no additional complaints GI Denies abdominal pain, Denies melena, Denies bloating, Denies hematochezia, Reports constipation, Denies GI cramping, Denies dysphagia, Denies excessive flatus, Denies early satiety, Reports heartburn, Denies diarrhea, Reports nausea, Denies odynophagia, Denies vomiting and Denies hematemesis Skin/Breast Denies pruritus, Denies lesions, Denies rash and Denies jaundice Neuro Reports Normal hearing present and Denies Abnormal speech present Endo Denies fatigue Aller/Immun Denies throat swelling and Denies tongue swelling Physical Exam Vital Signs: BMI result Body Mass Index 31.6 Const General: cooperative, no acute distress, well developed and well groomed Nutritional Appearance: well nourished and obese centrally obese Orientation/consciousness: oriented to person, oriented to place and oriented to time Limitations: language barrier HEENT Head: Yes normocephalic and Yes atraumatic Eyes General: appearance normal, both eyes and all related structures Pupils: Equal, round and reactive pupils present Neck Neck: Yes normal visual inspection and Yes no lymphadenopathy Thyroid: Thyroid normal Resp Effort & Inspection: normal respiratory effort and able to speak in complete sentences Auscultation: clear to auscultation bilaterally Cardio Rate: regular rate Rhythm: regular rhythm Heart sounds: Normal, physiologic split S2 sound present Peripheral pulses: radial pulses present and posterior tibial pulses present GI Inspection: No distended, No Abdominal panniculus present and Yes obesity Palpation (GI): Soft to palpation, nontender, no guarding, not rigid and No hepatosplenomegaly present Percussion: Yes normal to percussion Auscultation: normal bowel sounds Rectal Exam - Male: Yes deferred Skin General skin exam: no rashes or lesions noted, turgor normal, skin not dry, no jaundice, No spider nevi and no striae Rashes: no rashes Nails: normal Neuro General: oriented to person, oriented to place and oriented to time Cranial nerves: Yes Equal, round and reactive pupils present and Yes Normal hearing present Speech: No Abnormal speech present Extrem General: Yes normal to inspection, No clubbing, No cyanosis and No edema Psych Appearance: grossly normal and well kempt Mental Status: mental status grossly normal Speech and movement: Normal speech and movement present Affect: normal affect Attitude: cooperative Thought process: Normal thought process present and not confabulating Thought content: Normal thought content present Insight: Limited insight present (Psych) Judgement: Limited judgement present (Psych) Assessment & Plan Assessment & Plan (1) Nausea and vomiting: Code(s): R11.2 - Nausea with vomiting, unspecified Plan: [place] #Christen LIve He still struggles with nausea dominic first thing in the am, and is requesting more zofran....BUT he is on methadone and this has too great a risk with prolongation of QT interval. Reglan does not have the same contraindication and although there is risk of sedation with his other medications this seems the lesser of the 2 evil spirits I will try giving him Reglan but I will not prescribe him Zofran, hydroxyzine, Phenergan or Compazine because of the QT contraindication. I explained this to him. He has a date upcoming for his colonoscopy and is in May. He is looking for them to [facility] letter which I think has not happened yet just because were not close enough to the anticipated date. He verifies that he does have the prep at home. He feels like he is doing well on his famotidine for his GERD and his senna for the constipation. Return office visit in 3 months and of course after the colonoscopy. (2) Constipation: Code(s): K59.00 - Constipation, unspecified (3) GERD (gastroesophageal reflux disease): Code(s): K21.9 - Gastro-esophageal reflux disease without esophagitis (4) Patient on methadone maintenance therapy: Code(s): F11.20 - Opioid dependence, uncomplicated Medications: New metoclopramide HCl (Reglan) provider aware of potential interaction with seroquel and is monitoring 5 mg PO BID 60 tabs 3RF R11.2 - Nausea with vomiting, unspecified Refilled famotidine (Pepcid) 40 mg PO DAILY 30 days 30 tabs 6RF K21.9 - Gastro-esophageal reflux disease without esophagitis sennosides (senna) 17.2 mg (2 x 8.6 mg) PO BEDTIME 30 days 60 caps 6RF constipation K59.00 - Constipation, unspecified Discontinued ondansetron HCl Discontinued Reason: Doctor's Order 4 mg PO DAILY 30 days 30 tabs 6RF nausea and vomiting R11.2 - Nausea with vomiting, unspecified Coding Level of Care Code Est Pt Level 3 (16136) Diagnoses Nausea and vomiting R11.2 Constipation K59.00 GERD (gastroesophageal reflux disease) K21.9 Patient on methadone maintenance therapy F11.20
== END 2023-05-04 15:24 | disposition home or self-care (01) ==
PROVIDERS: PCP Internal Medicine Geriatric Medicine; Visit Provider Nurse Practitioner
DX: R11.2 Nausea with vomiting, unspecified (principal); K59.00 Constipation, unspecified; K21.9 Gastro-esophageal reflux disease without esophagitis; F11.20 Opioid dependence, uncomplicated
CPT/HCPCS: 99213

== ENCOUNTER → 2023-05-04 14:48 | Outpatient (BNVA) | payer MEDICAID, SELFPAY | PROVIDERS: PCP Internal Medicine Geriatric Medicine; Visit Provider Nurse Practitioner | DX: K21.9 Gastro-esophageal reflux disease without esophagitis (principal); K59.00 Constipation, unspecified; R11.2 Nausea with vomiting, unspecified; F11.20 Opioid dependence, uncomplicated | CPT/HCPCS: 99212 ==

== ENCOUNTER 2023-05-17 14:07 | Outpatient (REF) | payer MEDICAID, SELFPAY ==
--- NOTE | ~2023-05-17 | US_ITS ---
EXAMINATION: US RETROPERITONEAL LIMITED (RENAL ONLY) CLINICAL INFORMATION: Calculus of kidney. COMPARISON: Ultrasound retroperitoneal limited 04/22/2022 and 03/25/2021. CT abdomen and pelvis with contrast 09/11/2020. TECHNIQUE: Real-time imaging of the kidneys. FINDINGS: RIGHT KIDNEY: 11.2 x 6.3 x 5.6 cm (SAG x AP x TRV). The kidney is normal in size, contour, and echogenicity. Renal cortical thickness is normal. No renal calculi or hydronephrosis. Cystic focus right renal interpolar region measuring up to 1.2 cm, simple appearing, not requiring follow-up. LEFT KIDNEY: 10.3 x 5.0 x 4.5 cm (SAG x AP x TRV). The kidney is normal in size, contour, and echogenicity. Renal cortical thickness is normal. No renal calculi or hydronephrosis. Cystic focus left renal upper pole measuring up to 1.8 cm, simple appearing, not requiring follow-up. US/US renal BI IMPRESSION: 1. No nephrolithiasis or hydronephrosis. 2. Bilateral simple appearing renal cysts the largest measuring up to 1.8 cm, which do not require follow-up.
== END 2023-05-17 14:08 | disposition home or self-care (01) ==
LOC: HO.US 14:07
PROVIDERS: PCP Internal Medicine Geriatric Medicine; Visit Provider Urology
DX: N20.0 Calculus of kidney (principal)
CPT/HCPCS: 76775

== ENCOUNTER 2023-06-12 12:43 | Outpatient (REF) | payer MEDICAID, SELFPAY ==
[2023-06-12 13:15] LABS: MANUAL DIFF FLAG NO
[2023-06-12 13:50] LABS: Basophils Percent Auto 0.3 % (0-2); Eosinophils Absolute Auto 0.1 X10*3/uL (0.0-0.4); Eosinophils Percent Auto 1.7 % (0-4); Hematocrit 40.1 % (42.0-52.0); Imm Gran Abs Auto 0.03 X10*3/uL (0.00-0.03); Imm Gran Pct Auto 0.4 % (0.0-0.4); Lymphocytes Percent Auto 25.7 % (20-40); Mean Corpuscular HGB Conc 32.4 g/dl (31.0-36.0); Mean Corpuscular Hemoglobin 30.5 pg (27.0-33.0); Mean Corpuscular Volume 94.1 fL (80.0-98.0); Mean Platelet Volume 10.7 fL (9.4-12.4); Monocytes Absolute Auto 0.5 X10*3/uL (0.1-1.2); Monocytes Percent Auto 6.1 % (2-11); Neutrophils Absolute Auto 5.1 x10*3/uL (2.0-8.3); Neutrophils Percent Auto 65.8 % (45-73); Platelet Count 240 X10*3/uL (160-400); Red Blood Count 4.26 X10*6/uL (4.60-5.80); Red Cell Distribution Width 14.3 % (11.0-16.0); White Blood Count 7.7 X10*3/uL (4.8-10.8)
[2023-06-12 14:15] LABS: Alanine Aminotransferase 23 U/L (0-40); Albumin Level 4.6 g/dL (3.5-5.0); Alkaline Phosphatase 100 U/L (39-117); Anion Gap 15 (12-20); Aspartate Amino Transferase 15 U/L (5-37); Bilirubin Total 0.5 mg/dL (0.0-1.0); Blood Urea Nitrogen 14 mg/dL (9-16); Calcium 9.7 mg/dL (8.4-10.2); Carbon Dioxide 25 mmol/L (22-29); Chloride 105 mmol/L (96-108); Estimated Glomerular Filt Rate > 60; Glucose Random 170 mg/dL (60-115); Potassium 3.7 mmol/L (3.3-5.1); Sodium 141 mmol/L (135-145); Total Protein 7.6 g/dL (6.5-8.0)
[2023-06-12 14:16] LABS: Cholesterol 144 mg/dL (<200); HDL Cholesterol 35 mg/dL (>40); LDL Cholesterol Calculated 93 mg/dL (<100); Triglycerides 82 mg/dL (<150)
[2023-06-12 14:24] LABS: Reflex LDLD? No
[2023-06-13 10:03] LABS: Absolute CD3 Count 1683 cells/uL (840-3060); Absolute CD4 Count 329 cells/uL (490-1740); Absolute CD8 Count 1302 cells/uL (180-1170); Absolute Lymphocytes 2223 cells/uL (850-3900); CD4 CD8 Ratio 0.25 (0.86-5.00); Percent CD3 Cells 76 % (57-85); Percent CD4 Cells 15 % (30-61); Percent CD8 Cells 59 % (12-42)
[2023-06-13 14:54] LABS: HIV RNA PCR Qn Copies NOT DETECTED copies/mL (NOT DETECTED); HIV RNA PCR Qn Log Copies NOT DETECTED (NOT DETECTED)
[2023-06-14 10:49] LABS: RPR Rapid Plasma Reagin NON-REACTIVE (NON-REACTIVE)
== END 2023-06-12 12:44 | disposition home or self-care (01) ==
LOC: HO.LAB 12:43
PROVIDERS: Absent Provider Internal Medicine; PCP Internal Medicine Geriatric Medicine; Visit Provider Internal Medicine Geriatric Medicine
DX: B20 Human immunodeficiency virus [HIV] disease (principal)
CPT/HCPCS: 36415; 80053; 80061; 85025; 86359; 86360; 86592; 87536

== ENCOUNTER → 2023-06-14 09:42 | Outpatient (BNVA) | payer MEDICAID, SELFPAY | PROVIDERS: PCP Internal Medicine Geriatric Medicine; Visit Provider Nurse Practitioner ==

== ENCOUNTER 2023-07-19 09:14 | Outpatient (REF) | payer MEDICAID, SELFPAY | END 2023-07-19 09:15 | disposition home or self-care (01) | LOC: HO.US 09:14 | PROVIDERS: PCP Internal Medicine Geriatric Medicine; Visit Provider Internal Medicine Geriatric Medicine | DX: R19.07 Generalized intra-abdominal and pelvic swelling, mass and lump (principal) | CPT/HCPCS: 76700 ==

== ENCOUNTER 2023-07-21 12:41 | Outpatient (AMB) | payer MEDICAID, SELFPAY ==
--- NOTE | 2023-07-21 13:09 | MHC.OFFVIS ---
Intake Intake Visit Reasons: 1y/US Intake Note: Patient is Present for Follow Up Ultrasound Urology Medication: Sildenafil Antibiotic Allergies:None Blood Thinners: None Allergies No Known Allergies Allergy (Verified 06/05/23 08:35) Medication List - Last Reconciled 07/21/23 by Casey Argueta MD chlorthalidone 25 mg PO DAILY diclofenac sodium 1% grams topical DAILY rdfwkkquku-fqqowyth-quecnq ala 200-25-25 mg (Odefsey) 1 tab PO DAILY famotidine (Pepcid) 40 mg PO DAILY 30 days methadone 85 mg PO DAILY metoclopramide HCl (Reglan) 5 mg PO BID peg 3350-electrolytes 236-22.74-6.74 -5.86 gram (Golytely) 240 mL PO Q10M 1 day prazosin 2 mg PO TID quetiapine (Seroquel) 400 mg PO BID sennosides (senna) 17.2 mg (2 x 8.6 mg) PO BEDTIME 30 days sildenafil (Viagra) 100 mg PO DAILY PRN spironolactone 50 mg PO QAM HPI HPI Comments History of Present Illness Details Christoph is a pleasant male. He is a patient of Dr. Alaniz. He is seen for the following urologic conditions - nephrolithiasis Malaysian translation provided in office by qualified medical clinic manager Discussed imaging findings No evidence of stones Twelve month follow-up Nephrolithiasis Seen in the emergency room late August 2020 No prior stone None on family stone history Stone analysis - mucous - background HIV/methadone Imaging - 10/04 CT scan distal right ureteric stone with mild hydronephrosis - 03/06 renal ultrasound no stones, small cyst on left kidney - 05/07 renal ultrasound no stones, of 1.6 cm cyst left kidney stable - 05/08 renal ultrasound no stones Therapeutic plan - encourage fluid intake - surveillance imaging [facility] Medical History Prostate cancer HIV (human immunodeficiency virus infection) Surgical History History of esophagogastroduodenoscopy (EGD) Hx of removal of cyst Family History Family/Other No problems noted. Social History Alcohol intake: current Alcohol intake frequency: does not drink Review of Systems Const Denies chills and Denies fever(s) Card Reports no additional complaints and Denies syncope Resp Denies cough GI Denies abdominal pain and Denies heartburn Reports as per HPI and Denies change in libido Neuro Denies syncope Psych Denies change in libido Endo Denies change in libido Physical Exam Const General: cooperative, healthy appearing, comfortable and no acute distress Orientation/consciousness: patient oriented x3 HEENT Face and sinus: Yes normal facial exam Mouth: moist mucous membranes Neck Neck: Yes normal visual inspection, Yes full ROM and Yes trachea midline Chest Chest palpation & inspection: normal inspection of the chest Resp Effort & Inspection: normal respiratory effort, able to speak in complete sentences and no respiratory distress GI Inspection: Yes normal to inspection Back/Spine/Pelvis Cervical Spine: normal cervical lordosis Thoracic/Lumbar Spine: thoracic and lumbar spine normal to inspection Skin General skin exam: no rashes or lesions noted Neuro General: patient oriented x3, gait normal, tone normal and moves all extremities Extrem General: Yes normal to inspection and Yes capillary refill normal Assessment & Plan Assessment & Plan (1) Nephrolithiasis: Code(s): N20.0 - Calculus of kidney Plan Twelve month follow-up Orders: Orders US renal BI 364 Days N20.0 - Calculus of kidney Patient Instructions: Imaging studies, laboratory and physical exam results were discussed and reviewed in detail. No major barriers to patient understanding were identified. An opportunity to ask questions regarding the treatment plan was provided. All questions were answered. The patient expressed understanding and agreement with the above treatment plan. The patient is aware they should contact our office by phone for worsening of their current condition or the appearance of new urologic symptoms. Compliance is encouraged with any medications and followup testing that is ordered. It is a privilege to participate in the urologic care of your patient. If you have any questions or concerns regarding treatment for the above conditions, or other urologic issues, please do not hesitate to contact me. The office telephone contact is [phone]. This note is constructed using voice recognition software. While every effort has been made to ensure accuracy back maker errors may have been included. Yours sincerely, Dr Casey Argueta MD, [facility] - Urology Providers of Expert, Compassionate Care for the Genitourinary System Coding Level of Care Code Est Pt Level 4 (71797) Diagnoses Nephrolithiasis N20.0
== END 2023-07-21 13:23 | disposition home or self-care (01) ==
PROVIDERS: PCP Internal Medicine Geriatric Medicine; Referring Provider Internal Medicine Geriatric Medicine; Visit Provider Urology
DX: N20.0 Calculus of kidney (principal)
CPT/HCPCS: 99213

== ENCOUNTER → 2023-07-21 12:41 | Outpatient (BNVA) | payer MEDICAID, SELFPAY | PROVIDERS: PCP Internal Medicine Geriatric Medicine; Visit Provider Urology | DX: N20.0 Calculus of kidney (principal) | CPT/HCPCS: 99212 ==

== ENCOUNTER 2023-08-04 14:36 | Outpatient (AMB) | payer MEDICAID, SELFPAY ==
--- NOTE | 2023-08-04 14:43 | MHC.OFFVIS ---
Intake Vital Signs 08/04/23 14:45 Height 5 ft 6 in Weight 189 lb 9.561 oz BMI 30.6 BP 117/57 L Blood Pressure Location Lt brachial Position Sitting Pulse 72 Intake Visit Reasons: Follow up 3 months Intake Note: Patient presents to in office visit today in follow up of GERD. CC: Patient reports occasional nausea, and heartburn. He states he would like to get the disintegrating ondansentron instead of the one he was prescribed. Denies other GI symptoms. Adult Psychiatrist Required: Yes Allergies No Known Allergies Allergy (Verified 08/04/23 14:47) HPI Follow up 3 months HPI Details Assessment & Plan (1) Nausea and vomiting: Code(s): R11.2 - Nausea with vomiting, unspecified Plan: [place] #Christen LIve He still struggles with nausea dominic first thing in the am, and is requesting more zofran....BUT he is on methadone and this has too great a risk with prolongation of QT interval. Reglan does not have the same contraindication and although there is risk of sedation with his other medications this seems the lesser of the 2 evil spirits I will try giving him Reglan but I will not prescribe him Zofran, hydroxyzine, Phenergan or Compazine because of the QT contraindication. I explained this to him. He has a date upcoming for his colonoscopy and is in May. [facility] which I think has not happened yet just because were not close enough to the anticipated date. He verifies that he does have the prep at home. He feels like he is doing well on his famotidine for his GERD and his senna for the constipation. Return office visit in 3 months and of course after the colonoscopy. (2) Constipation: Code(s): K59.00 - Constipation, unspecified (3) GERD (gastroesophageal reflux disease): Code(s): K21.9 - Gastro-esophageal reflux disease without esophagitis (4) Patient on methadone maintenance therapy: Code(s): F11.20 - Opioid dependence, uncomplicated Medications: New metoclopramide HCl (Reglan) provi raysa aware of poten tial interaction w ith seroquel and i s monitoring 5 mg PO BID 60 ta bs 3RF R11.2 - Nausea wit h vomiting, unspec ified Refilled famotidine (Pepcid ) 40 mg PO DAILY 30 days 30 tabs 6RF K21.9 - Gastro-eso phageal reflux dis ease without esoph agitis sennosides (senna) 17.2 mg (2 x 8.6 m g) PO BEDTIME 30 d ays 60 caps 6RF co nstipation K59.00 - Constipat ion, unspecified Discontinued ondansetron HCl Discontinued Reas on: Doctor's Orde r 4 mg PO DAILY 30 days 30 tabs 6RF n ausea and vomiting R11.2 - Nausea wit h vomiting, unspec ified COLONOSCOPY SCHEDULED FOR 09/05 BIOPSY TODAY'S VISIT [place] #Malcolm, Live He says he received the Reglan but that does not work as well as Zofran. I asked how often he is taking it any tells me just once a day and I educate him that he can actually take it twice a day quite safely. He was not aware of this and he will implement this as he did find the nausea was breaking through later in the day which would make sense. He is aware that he has his colonoscopy coming up, is aware of the prep and has all of the relevant information at home. He continues on his famotidine and has senna to use as needed for constipation. There are no prior problems with anesthesia or sedation. He denies any cardiac or respiratory problems. He has HIV and is on antiretroviral therapy there are no other infectious disease problems known. He is also on chronic methadone treatment. There is no known family history of colon cancer or polyps. Will schedule him for a follow-up about a week after his colonoscopy in August so I will have those results. [facility] Medical History (Updated 08/04/23 @ 14:47 by YAAKOV Davis) Pre-op examination Prostate cancer HIV (human immunodeficiency virus infection) Surgical History History of esophagogastroduodenoscopy (EGD) Hx of removal of cyst Family History Family/Other No problems noted. Social History Alcohol intake: current Alcohol intake frequency: does not drink Review of Systems Const Denies fatigue, Denies fever(s), Denies night sweats, Denies poor appetite and Denies weight loss ENT Reports Normal hearing present, Denies dental pain, Denies dysphagia, Denies hearing loss, Denies mouth pain, Denies odynophagia, Denies throat swelling, Denies tongue swelling and Reports other (Dentition adequate) Card Reports no additional complaints Resp Reports no additional complaints GI Denies abdominal pain, Denies melena, Denies bloating, Denies hematochezia, Reports constipation, Denies GI cramping, Denies dysphagia, Denies excessive flatus, Denies early satiety, Reports heartburn, Denies diarrhea, Reports nausea, Denies odynophagia, Denies vomiting and Denies hematemesis Skin/Breast Denies pruritus, Denies lesions, Denies rash and Denies jaundice Neuro Reports Normal hearing present and Denies Abnormal speech present Endo Denies fatigue Aller/Immun Denies throat swelling and Denies tongue swelling Physical Exam Vital Signs: Last Vital Signs Pulse 72 08/04/23 14:45 BP 117/57 L 08/04/23 14:45 BMI result Body Mass Index 30.6 Const General: cooperative, no acute distress, well developed and well groomed Nutritional Appearance: well nourished and obese Orientation/consciousness: oriented to person, oriented to place and oriented to time Limitations: language barrier HEENT Head: Yes normocephalic and Yes atraumatic Eyes General: appearance normal, both eyes and all related structures Pupils: Equal, round and reactive pupils present Neck Neck: Yes normal visual inspection and Yes no lymphadenopathy Thyroid: Thyroid normal Resp Effort & Inspection: normal respiratory effort and able to speak in complete sentences Auscultation: clear to auscultation bilaterally Cardio Rate: regular rate Rhythm: regular rhythm Heart sounds: Normal, physiologic split S2 sound present Peripheral pulses: radial pulses present and posterior tibial pulses present GI Inspection: No distended, No Abdominal panniculus present and Yes obesity Palpation (GI): Soft to palpation, nontender, no guarding, not rigid and No hepatosplenomegaly present Percussion: Yes normal to percussion Auscultation: normal bowel sounds Rectal Exam - Male: Yes deferred Skin General skin exam: no rashes or lesions noted, turgor normal, skin not dry, no jaundice, No spider nevi and no striae Rashes: no rashes Nails: normal Neuro General: oriented to person, oriented to place and oriented to time Cranial nerves: Yes Equal, round and reactive pupils present and Yes Normal hearing present Speech: No Abnormal speech present Extrem General: Yes normal to inspection, No clubbing, No cyanosis and No edema Psych Appearance: grossly normal and well kempt Mental Status: mental status grossly normal Speech and movement: Normal speech and movement present Affect: normal affect Attitude: cooperative Thought process: Circumstantial thought process present and not confabulating Thought content: Normal thought content present Insight: Poor insight present (Psych) Judgement: Poor judgement present (Psych) Assessment & Plan Assessment & Plan (1) GERD (gastroesophageal reflux disease): Code(s): K21.9 - Gastro-esophageal reflux disease without esophagitis (2) Nausea and vomiting: Code(s): R11.2 - Nausea with vomiting, unspecified (3) Constipation: Code(s): K59.00 - Constipation, unspecified Plan COLONOSCOPY SCHEDULED FOR 09/05 BIOPSY TODAY'S VISIT [place] #Malcolm Live He says he received the Reglan but that does not work as well as Zoan. I asked how often he is taking it any tells me just once a day and I educate him that he can actually take it twice a day quite safely. He was not aware of this and he will implement this as he did find the nausea was breaking through later in the day which would make sense. He is aware that he has his colonoscopy coming up, is aware of the prep and has all of the relevant information at home. He continues on his famotidine and has senna to use as needed for constipation. There are no prior problems with anesthesia or sedation. He denies any cardiac or respiratory problems. He has HIV and is on antiretroviral therapy there are no other infectious disease problems known. He is also on chronic methadone treatment. There is no known family history of colon cancer or polyps. Will schedule him for a follow-up about a week after his colonoscopy in August so I will have those results. Medications: Refilled metoclopramide HCl (Reglan) provider aware of potential interaction with seroquel and is monitoring 5 mg PO BID 60 tabs 6RF R11.2 - Nausea with vomiting, unspecified Coding Level of Care Code Est Pt Level 3 (38295) Diagnoses GERD (gastroesophageal reflux disease) K21.9 Nausea and vomiting R11.2 Constipation K59.00
[2023-08-04 14:45] VITALS: BP 117/57; PULSE 72; BMI 30.6
== END 2023-08-04 15:01 | disposition home or self-care (01) ==
PROVIDERS: PCP Internal Medicine Geriatric Medicine; Visit Provider Nurse Practitioner
DX: K21.9 Gastro-esophageal reflux disease without esophagitis (principal); R11.2 Nausea with vomiting, unspecified; K59.00 Constipation, unspecified
CPT/HCPCS: 99213

== ENCOUNTER → 2023-08-04 14:36 | Outpatient (BNVA) | payer MEDICAID, SELFPAY | PROVIDERS: PCP Internal Medicine Geriatric Medicine; Visit Provider Nurse Practitioner | DX: K21.9 Gastro-esophageal reflux disease without esophagitis (principal); K59.00 Constipation, unspecified; R11.2 Nausea with vomiting, unspecified | CPT/HCPCS: 99212 ==

== ENCOUNTER 2023-12-14 13:49 | Outpatient (REF) | payer MEDICAID, SELFPAY ==
[2023-12-14 16:05] LABS: MANUAL DIFF FLAG NO
[2023-12-14 16:09] LABS: Basophils Percent Auto 0.4 % (0-2); Eosinophils Absolute Auto 0.2 X10*3/uL (0.0-0.4); Eosinophils Percent Auto 2.5 % (0-4); Eosinophils Percent Auto 2.7 % (0-4); Hematocrit 39.2 % (42.0-52.0); Hematocrit 40.5 % (42.0-52.0); Hemoglobin 13.2 g/dl (14.0-18.0); Hemoglobin 13.3 g/dl (14.0-18.0); Imm Gran Abs Auto 0.02 X10*3/uL (0.00-0.03); Imm Gran Abs Auto 0.03 X10*3/uL (0.00-0.03); Imm Gran Pct Auto 0.3 % (0.0-0.4); Imm Gran Pct Auto 0.4 % (0.0-0.4); Lymphocytes Absolute Auto 2.2 X10*3/uL (1.2-4.9); Lymphocytes Percent Auto 28.2 % (20-40); Lymphocytes Percent Auto 28.9 % (20-40); Mean Corpuscular HGB Conc 32.8 g/dl (31.0-36.0); Mean Corpuscular HGB Conc 33.7 g/dl (31.0-36.0); Mean Corpuscular Hemoglobin 31.1 pg (27.0-33.0); Mean Corpuscular Hemoglobin 31.4 pg (27.0-33.0); Mean Corpuscular Volume 93.1 fL (80.0-98.0); Mean Corpuscular Volume 94.6 fL (80.0-98.0); Mean Platelet Volume 10.2 fL (9.4-12.4); Mean Platelet Volume 9.9 fL (9.4-12.4); Monocytes Absolute Auto 0.5 X10*3/uL (0.1-1.2); Monocytes Percent Auto 6.9 % (2-11); Neutrophils Absolute Auto 4.7 x10*3/uL (2.0-8.3); Neutrophils Percent Auto 60.9 % (45-73); Neutrophils Percent Auto 61.4 % (45-73); Platelet Count 261 X10*3/uL (160-400); Platelet Count 274 X10*3/uL (160-400); Red Blood Count 4.21 X10*6/uL (4.60-5.80); Red Blood Count 4.28 X10*6/uL (4.60-5.80); Red Cell Distribution Width 14.5 % (11.0-16.0); Red Cell Distribution Width 14.6 % (11.0-16.0); White Blood Count 7.7 X10*3/uL (4.8-10.8)
[2023-12-14 16:31] LABS: Alanine Aminotransferase 39 U/L (0-40); Albumin Level 4.4 g/dL (3.5-5.0); Alkaline Phosphatase 103 U/L (39-117); Anion Gap 14 (12-20); Aspartate Amino Transferase 23 U/L (5-37); Bilirubin Total 0.3 mg/dL (0.0-1.0); Blood Urea Nitrogen 14 mg/dL (9-16); Calcium 9.8 mg/dL (8.4-10.2); Carbon Dioxide 24 mmol/L (22-29); Chloride 107 mmol/L (96-108); Estimated Glomerular Filt Rate > 60; Glucose Random 169 mg/dL (60-115); Sodium 141 mmol/L (135-145); Total Protein 7.3 g/dL (6.5-8.0)
[2023-12-15 14:38] LABS: HIV RNA PCR Qn Copies <20 DETECTED copies/mL (NOT DETECTED); HIV RNA PCR Qn Log Copies <1.30 DETECTED (NOT DETECTED)
[2023-12-16 10:18] LABS: HCV Log PCR <1.18 NOT DETECTED Log IU/mL (NOT DETECTED); HepC Viral Load <15 NOT DETECTED IU/mL (NOT DETECTED)
[2023-12-17 16:54] LABS: TS Negative Control Passed; TS Panel A 0; TS Panel B 1; TS Positive Control Passed; TSpotTB Negative (Negative)
[2023-12-18 08:58] LABS: Absolute CD3 Count 1885 cells/uL (840-3060); Absolute CD4 Count 394 cells/uL (490-1740); Absolute CD8 Count 1437 cells/uL (180-1170); Absolute Lymphocytes 2423 cells/uL (850-3900); CD4 CD8 Ratio 0.27 (0.86-5.00); Percent CD3 Cells 78 % (57-85); Percent CD4 Cells 16 % (30-61); Percent CD8 Cells 59 % (12-42)
== END 2023-12-14 13:50 | disposition home or self-care (01) ==
LOC: HO.HHCL 13:49
PROVIDERS: Visit Provider Internal Medicine
DX: B20 Human immunodeficiency virus [HIV] disease (principal)
CPT/HCPCS: 36415; 80053; 85025; 86359; 86360; 86481; 87522; 87536

== ENCOUNTER 2023-12-19 13:19 | Outpatient (AMB) | payer MEDICAID, SELFPAY ==
--- NOTE | 2023-12-19 13:22 | A.OFFVIS_ITS ---
Vital Signs 12/19/23 13:23 Height 5 ft 6 in BP 142/64 H Blood Pressure Location Lt brachial Position Sitting Pulse 72 Intake Visit Reasons: Wants to talk about meds Intake Note: Patient in office today for follow up of medications. CC: He c/o dizziness. Denies other GI concerns today. Product Marketing Consultant Required: Yes Accompanied by: Self / Same As Patient Allergies No Known Allergies Allergy (Verified 12/19/23 13:23) HPI HPI Wants to talk about meds: Details: Assessment & Plan (1) GERD (gastroesophageal reflux disease): Code(s): K21.9 - Gastro-esophageal reflux disease without esophagitis (2) Nausea and vomiting: Code(s): R11.2 - Nausea with vomiting, unspecified (3) Constipation: Code(s): K59.00 - Constipation, unspecified Plan [place] #Malcolm, Live He says he received the Reglan but that does not work as well as Zofran. I asked how often he is taking it any tells me just once a day and I educate him that he can actually take it twice a day quite safely. He was not aware of this and he will implement this as he did find the nausea was breaking through later in the day which would make sense. He is aware that he has his colonoscopy coming up, is aware of the prep and has all of the relevant information at home. He continues on his famotidine and has senna to use as needed for constipation. There are no prior problems with anesthesia or sedation. He denies any cardiac or respiratory problems. He has HIV and is on antiretroviral therapy there are no other infectious disease problems known. He is also on chronic methadone treatment. There is no known family history of colon cancer or polyps. Will schedule him for a follow-up about a week after his colonoscopy in August so I will have those results. Medications: Refilled metoclopramide HCl (Reglan) provider aware of potential interaction with seroquel and is monitoring 5 mg PO BID 60 tabs 6RF R11.2 - Nausea with vomiting, unspecified Laboratory Tests 12/14/23 13:58 WBC 7.7 RBC 4.21 L Hgb 13.2 L Hct 39.2 L MCV 93.1 MCH 31.4 Plt Count 274 Estimated GFR > 60 Total Bilirubin 0.3 AST 23 ALT 39 Alkaline Phosphatase 103 COLONOSCOPY SCHEDULED FOR 09/05 however it appears this was never performed BIOPSY TODAY'S VISIT [place]ales[place] #[id number] He says he never had the colonoscopy because he was dx'ed with prostate cancer and he was in pain after this treatment. He will be seeing his oncologist and has not yet been cleared. He wants to discuss this on He continues on his famotidine and has senna to use as needed for constipation. There are no prior problems with anesthesia or sedation. He denies any cardiac or respiratory problems. He has HIV and is on antiretroviral therapy there are no other infectious di sease problems known. He is also on chronic methadone treatment. There is no known family history of colon cancer or polyps. Return office visit in 6 months and of course after the colonoscopy [facility] Medical History (Updated 08/04/23 @ 14:47 by YAAKOV Davis) Pre-op examination Prostate cancer HIV (human immunodeficiency virus infection) Surgical History History of esophagogastroduodenoscopy (EGD) Hx of removal of cyst Family History Family/Other No problems noted. Social History Alcohol intake: current Alcohol intake frequency: does not drink Review of Systems Const Denies fatigue, Denies fever(s), Denies night sweats, Denies poor appetite and Denies weight loss ENT Reports Normal hearing present, Denies dysphagia, Denies odynophagia, Denies throat swelling and Denies tongue swelling Card Reports no additional complaints Resp Reports no additional complaints GI Details: Denies abdominal pain, Denies melena, Denies bloating, Denies hematochezia, Reports constipation, Denies GI cramping, Denies dysphagia, Denies excessive flatus, Denies early satiety, Reports heartburn, Denies diarrhea, Denies nausea, Denies odynophagia, Denies vomiting and Denies hematemesis Skin/Breast Denies pruritus, Denies lesions, Denies rash and Denies jaundice Neuro Reports Normal hearing present and Denies Abnormal speech present Endo Denies fatigue Aller/Immun Denies throat swelling and Denies tongue swelling Physical Exam Vital Signs: Last Vital Signs Pulse 72 12/19/23 13:23 BP 142/64 H 12/19/23 13:23 Const General: cooperative, no acute distress, well developed and well groomed Nutritional Appearance: well nourished and overweight Orientation/consciousness: oriented to person, oriented to place and oriented to time Limitations: language barrier and ambulation with cane HEENT Head: Yes normocephalic and Yes atraumatic Eyes General: appearance normal, both eyes and all related structures Pupils: Equal, round and reactive pupils present Neck Neck: Yes normal visual inspection and Yes no lymphadenopathy Thyroid: Thyroid normal Resp Effort & Inspection: normal respiratory effort and able to speak in complete sentences Auscultation: clear to auscultation bilaterally Cardio Rate: regular rate Rhythm: regular rhythm Heart sounds: Normal, physiologic split S2 sound present Peripheral pulses: radial pulses present and posterior tibial pulses present GI Inspection: No distended, No Abdominal panniculus present and Yes obesity Palpation (GI): Soft to palpation, nontender, no guarding, not rigid and No hepatosplenomegaly present Percussion: Yes normal to percussion Auscultation: normal bowel sounds Rectal Exam - Male: Yes deferred Skin General skin exam: no rashes or lesions noted, turgor normal, skin not dry, no jaundice, No spider nevi and no striae Rashes: no rashes Nails: normal Neuro General: oriented to person, oriented to place and oriented to time Cranial nerves: Yes Equal, round and reactive pupils present and Yes Normal hearing present Speech: No Abnormal speech present Extrem General: Yes normal to inspection, No clubbing, No cyanosis and No edema Psych Appearance: grossly normal and well kempt Mental Status: mental status grossly normal Speech and movement: Normal speech and movement present Affect: normal affect Attitude: cooperative Thought process: Normal thought process present and not confabulating Thought content: Normal thought content present Insight: Limited insight present (Psych) Judgement: Limited judgement present (Psych) Results Reviewed Results Reviewed: Laboratory Tests 12/14/23 13:58 WBC 7.7 RBC 4.21 L Hgb 13.2 L Hct 39.2 L MCV 93.1 MCH 31.4 Plt Count 274 Estimated GFR > 60 Total Bilirubin 0.3 AST 23 ALT 39 Alkaline Phosphatase 103 Assessment & Plan Assessment & Plan (1) GERD (gastroesophageal reflux disease): Code(s): K21.9 - Gastro-esophageal reflux disease without esophagitis Category: Medical (2) Constipation: Code(s): K59.00 - Constipation, unspecified Category: Medical (3) HIV (human immunodeficiency virus infection): Code(s): B20 - Human immunodeficiency virus [HIV] disease Category: Medical (4) Patient on methadone maintenance therapy: Code(s): F11.20 - Opioid dependence, uncomplicated Category: Medical Plan [place] #[id number] He says he never had the colonoscopy because he was dx'ed with prostate cancer and he was in pain after this treatment. He will be seeing his oncologist and has not yet been cleared. He wants to discuss this on He continues on his famotidine and has senna to use as needed for constipation. There are no prior problems with anesthesia or sedation. He denies any cardiac or respiratory problems. He has HIV and is on antiretroviral therapy there are no other infectious diseas e problems known. He is also on chronic methadone treatment. There is no known family history of colon cancer or polyps. Return office visit in 6 months and of course after the colonoscopy COLONOSCOPY SCHEDULED FOR 09/05 however it appears this was never performed BIOPSY Medications: Refilled metoclopramide HCl (Reglan) provider aware of potential interaction with seroquel and is monitoring 5 mg PO BID 60 tabs 6RF R11.2 - Nausea with vomiting, unspecified famotidine 40 mg PO DAILY 90 tabs 2RF K21.9 - Gastro-esophageal reflux disease without esophagitis sennosides (senna) 17.2 mg (2 x 8.6 mg) PO BEDTIME 60 caps 6RF constipation 30 days K59.00 - Constipation, unspecified Coding Level of Care Code Est Pt Level 4 (12495) Diagnoses GERD (gastroesophageal reflux disease) K21.9 Constipation K59.00 HIV (human immunodeficiency virus infection) B20 Patient on methadone maintenance therapy F11.20
[2023-12-19 13:23] VITALS: BP 142/64; PULSE 72
== END 2023-12-19 13:32 | disposition home or self-care (01) ==
PROVIDERS: PCP Internal Medicine Geriatric Medicine; Visit Provider Nurse Practitioner
DX: K21.9 Gastro-esophageal reflux disease without esophagitis (principal); K59.00 Constipation, unspecified; B20 Human immunodeficiency virus [HIV] disease; F11.20 Opioid dependence, uncomplicated
CPT/HCPCS: 99214

== ENCOUNTER → 2023-12-19 13:19 | Outpatient (BNVA) | payer MEDICAID, SELFPAY | PROVIDERS: PCP Internal Medicine Geriatric Medicine; Visit Provider Nurse Practitioner | DX: K21.9 Gastro-esophageal reflux disease without esophagitis (principal); K59.00 Constipation, unspecified; B20 Human immunodeficiency virus [HIV] disease; F11.20 Opioid dependence, uncomplicated; Z79.899 Other long term (current) drug therapy | CPT/HCPCS: 99212 ==

== ENCOUNTER 2023-12-28 18:22 | Outpatient (REF) | payer MEDICAID, SELFPAY | END 2023-12-28 18:23 | disposition home or self-care (01) | LOC: HO.HHCLNP 18:22 | PROVIDERS: Visit Provider Internal Medicine | DX: B20 Human immunodeficiency virus [HIV] disease (principal) | CPT/HCPCS: 88112 ==

== ENCOUNTER 2024-05-06 13:41 | Emergency (ER) | payer MEDICAID, SELFPAY ==
[2024-05-06 13:44] VITALS: BP 119/59; PULSE 80; RESP 16; TEMP 36.4; O2SAT 98; BMI 27.4
--- NOTE | 2024-05-06 13:46 | ED_ITS ---
HPI - General Adult General Chief complaint: Abdominal Pain Stated complaint: Abd pain Time Seen by Provider: 05/06/24 22:00 Source: patient Mode of arrival: ambulatory Limitations: no limitations History of Present Illness ED Provider: kd BUSCH narrative: Patient complaining of pain in upper abdominal for last 4 days with nausea , no vomiting feels hungry and able to eat and drink fluids no history of pancreatitis no alcohol use Related Data Home Medications ?Medication ?Instructions ?Recorded ?Confirmed chlorthalidone 25 mg tablet 25 mg PO DAILY 11/03/20 07/21/23 emtricitabine 200 mg-rilpivirine 1 tab PO DAILY 11/03/20 07/21/23 25 mg-tenofovir alafenam 25 mg tablet (Odefsey) methadone 10 mg/5 mL oral solution 85 mg PO DAILY 11/03/20 07/21/23 prazosin 2 mg capsule 2 mg PO TID 11/03/20 07/21/23 quetiapine 400 mg tablet (Seroquel) 400 mg PO BID 11/03/20 07/21/23 diclofenac sodium 1 % topical gel g topical DAILY 05/04/23 07/21/23 sildenafil 100 mg tablet (Viagra) 100 mg PO DAILY PRN 05/04/23 07/21/23 spironolactone 50 mg tablet 50 mg PO QAM 05/04/23 07/21/23 Previous Rx's ?Medication ?Instructions ?Recorded peg 3350-electrolytes 236 240 ml PO Q10M 1 day #4,000 mL 03/10/23 gram-22.74 gram-6.74 gram-5.86 gram solution (Golytely) famotidine 40 mg tablet 40 mg PO DAILY #90 tabs 12/19/23 metoclopramide HCl 5 mg tablet 5 mg PO BID #60 tabs 12/19/23 (Reglan) sennosides 8.6 mg capsule (senna) 17.2 mg (2 x 8.6 mg) PO BEDTIME 12/19/23 constipation 30 days #60 caps ondansetron 4 mg disintegrating 4 mg PO Q6-8H PRN nausea and 05/06/24 tablet vomiting #7 tabs Allergies Allergy/AdvReac Type Severity Reaction Status Date / Time No Known Allergies Allergy Verified 05/06/24 13:48 Review of Systems 2 Review of Systems: Yes all other systems are reviewed and are negative PMFSH Past Medical History Medical History Pre-op examination Prostate cancer HIV (human immunodeficiency virus infection) Surgical History History of esophagogastroduodenoscopy (EGD) Hx of removal of cyst Family History Family History Family/Other No problems noted. Social History Social History Alcohol intake: never Smoked in Last 30 Days: Yes Use of substances other than those prescribed or required for medical reasons: Yes Substance Use Type: Heroin and Marijuana Advance Directives: No Advance Directives Information Provided: No Do you have a plan to hurt others: No Plan Physical Exam ED Vital Signs: Vital Signs - 24 hr 05/06/24 13:44 05/06/24 22:00 05/06/24 22:24 Temperature 97.5 F 98.4 F 98.4 F Pulse Rate 80 77 77 Respiratory Rate 16 14 14 Blood Pressure 119/59 L 142/62 H 142/62 H Pulse Oximetry 98 99 99 Oxygen Delivery Method Room Air Room Air Room Air BMI result Body Mass Index 27.4 Appearance: Alert. Oriented X3. No acute distress. Eyes: PERRLA, No Nystagmus ENT: Pharynx normal. Oral Mucosa moist Neck: Normal inspection. Neck supple. CVS: Normal heart rate and rhythm. Pulses normal. Respiratory: No respiratory distress. Equal air entry bilateral, no wheezing/rales/rhonchi Abdomen: Soft and tenderness in epigastric area no tenderness in right upper quadrant no rebound tenderness or guarding Bowel sounds are present, no mass palpable, no CVA tenderness Skin: Skin warm and dry. Normal skin color. Normal skin turgor. Extremities: No lower extremity edema. No calf tenderness Neuro: Oriented X 3. Course Course Course Narrative: RME performed by Sushma Tim PA-C. Patient is a 64 year old assigned male at presenting to the emergency department with abd pain. Detailed physical exam and review of systems are deferred to the instructional services specialist. Labs and swabs ordered. Patient placed back in the waiting room pending room availability and results. Medications Administered Discontinued Medications Generic Name Dose Route Start Last Admin Trade Name Janis PRN Reason Stop Dose Admin Ondansetron HCl 4 mg 05/06/24 22:11 05/06/24 22:17 Ondansetron Odt 4 Mg Tab.Cristal RUFFINU 05/06/24 22:12 4 mg ONCE ONE Administration Medical Decision Making Medical Decision Making [facility] Narrative: Patient's gastritis with upper abdominal pain with history of gallstones LFTs were normal lipase came back slightly elevated 256 patient taking p.o. fluids without any significant pain will discharge patient home Differential Diagnosis Differential Diagnoses: The differential diagnosis associated with the presentation includes Lab Data [facility] Lab Attestation statement: I reviewed the patient's lab results. 05/06/24 14:44 05/06/24 14:44 Labs: Lab Results 05/06/24 Range/Units 14:44 WBC 12.7 H (4.8-10.8) X10*3/uL RBC 4.04 L (4.60-5.80) X10*6/uL Hgb 12.5 L (14.0-18.0) g/dl Hct 37.5 L (42.0-52.0) % MCV 92.8 (80.0-98.0) fL MCH 30.9 (27.0-33.0) pg MCHC 33.3 (31.0-36.0) g/dl RDW 14.5 (11.0-16.0) % Plt Count 246 (160-400) X10*3/uL MPV 9.5 (9.4-12.4) fL Immature Gran % (Auto) 0.4 (0.0-0.4) % Neut % (Auto) 82.8 H (45-73) % Lymph % (Auto) 9.8 L (20-40) % Jones % (Auto) 6.1 (2-11) % Eos % (Auto) 0.7 (0-4) % Baso % (Auto) 0.2 (0-2) % Lymph # (Auto) 1.2 (1.2-4.9) X10*3/uL [place] # (Auto) 0.8 (0.1-1.2) X10*3/uL Eos # (Auto) 0.1 (0.0-0.4) X10*3/uL Baso # (Auto) 0.0 (0.0-0.2) X10*3/uL Abs Immat Gran (auto) 0.05 H (0.00-0.03) X10*3/uL Absolute Neuts (auto) 10.5 H (2.0-8.3) x10*3/uL Absolute Nucleated RBC 0.000 (0.0-0.012) X10*3/uL Nucleated RBC % (auto) 0.0 (0.0-0.2) /100WBC Sodium 138 (135-145) mmol/L Potassium 3.7 (3.3-5.1) mmol/L Chloride 107 (96-108) mmol/L Carbon Dioxide 23 (22-29) mmol/L Anion Gap 12 (12-20) BUN 12 (9-16) mg/dL Creatinine 0.98 (0.5-1.4) mg/dL Estim Creat Clear Calc 76.4 Estimated GFR > 60 Random Glucose 142 H (60-115) mg/dL Calcium 9.6 (8.4-10.2) mg/dL Magnesium 2.0 (1.6-2.6) mg/dL Total Bilirubin 0.7 (0.0-1.0) mg/dL AST 23 (5-37) U/L ALT 29 (0-40) U/L Alkaline Phosphatase 106 (39-117) U/L Troponin I High Sens < 2.7 (<3.5-35.0) ng/L Total Protein 7.5 (6.5-8.0) g/dL Albumin 4.3 (3.5-5.0) g/dL Lipase 256 H (8-78) U/L Influenza Type A (PCR) NEGATIVE (Negative) Influenza Type B (PCR) NEGATIVE (Negative) RSV RNA Qual (PCR) NEGATIVE (Negative) SARS-CoV-2 RNA (RT-PCR) NEGATIVE (Negative) Discharge Plan Discharge Clinical Impression: Acute gastritis Patient Disposition: Home, Self-Care Instructions: Gastritis (ED) Additional Instructions: Continue take your medication as prescribed Medication for nausea as prescribed Avoid fried foods Prescriptions: New ondansetron 4 mg tablet,disintegrating 4 mg PO Q6-8H PRN (Reason: nausea and vomiting) Qty: 7 0RF No Action Odefsey 200-25-25 mg tablet 1 tab PO DAILY Rx Instructions: must administer with a meal/food prazosin 2 mg capsule 2 mg PO TID quetiapine [Seroquel] 400 mg tablet 400 mg PO BID chlorthalidone 25 mg tablet 25 mg PO DAILY methadone 10 mg/5 mL solution 85 mg PO DAILY peg 3350-electrolytes [Golytely] 236-22.74-6.74 -5.86 gram recon soln 240 ml PO Q10M 1 Days Qty: 4000 0RF Rx Instructions: until fecal effluent is clear; do not exceed a total volume of 2,000 mL spironolactone 50 mg tablet 50 mg PO QAM diclofenac sodium 1 % gel topical DAILY sildenafil [Viagra] 100 mg tablet 100 mg PO DAILY PRN metoclopramide HCl [Reglan] 5 mg tablet 5 mg PO BID Qty: 60 6RF Rx Instructions: provider aware of potential interaction with seroquel and is monitoring famotidine 40 mg tablet 40 mg PO DAILY Qty: 90 2RF senna 8.6 mg capsule 17.2 mg PO BEDTIME 30 Days Qty: 60 6RF Interventions: ED Discharge Assessment Last Done: 05/06/24 22:24 Discharge Date/Time: 05/06/24 22:25 Print Language: Lao
--- NOTE | 2024-05-06 13:47 | ECG_ITS ---
Test Reason : epigastric pain Blood Pressure : / mmHG Vent. Rate : 084 BPM Atrial Rate : 084 BPM P-R Int : 182 ms QRS Dur : 096 ms QT Int : 376 ms P-R-T Axes : 063 -21 031 degrees QTc Int : 444 ms Normal sinus rhythm RSR' or QR pattern in V1 suggests right ventricular conduction delay Minimal voltage criteria for LVH, may be normal variant ( R in aVL ) T wave abnormality, consider anterior ischemia Abnormal ECG When compared to the previous EKG of ?old posterior infarct T wave inversions V1 to v3 Referred By: Sushma Tim Electronically Signed By:Last Crook
[2024-05-06 14:49] LABS: MANUAL DIFF FLAG NO
[2024-05-06 14:50] LABS: Basophils Percent Auto 0.2 % (0-2); Eosinophils Absolute Auto 0.1 X10*3/uL (0.0-0.4); Eosinophils Percent Auto 0.7 % (0-4); Hematocrit 37.5 % (42.0-52.0); Hemoglobin 12.5 g/dl (14.0-18.0); Imm Gran Abs Auto 0.05 X10*3/uL (0.00-0.03); Imm Gran Pct Auto 0.4 % (0.0-0.4); Lymphocytes Absolute Auto 1.2 X10*3/uL (1.2-4.9); Lymphocytes Percent Auto 9.8 % (20-40); Mean Corpuscular HGB Conc 33.3 g/dl (31.0-36.0); Mean Corpuscular Hemoglobin 30.9 pg (27.0-33.0); Mean Corpuscular Volume 92.8 fL (80.0-98.0); Mean Platelet Volume 9.5 fL (9.4-12.4); Monocytes Absolute Auto 0.8 X10*3/uL (0.1-1.2); Monocytes Percent Auto 6.1 % (2-11); Neutrophils Absolute Auto 10.5 x10*3/uL (2.0-8.3); Neutrophils Percent Auto 82.8 % (45-73); Platelet Count 246 X10*3/uL (160-400); Red Blood Count 4.04 X10*6/uL (4.60-5.80); Red Cell Distribution Width 14.5 % (11.0-16.0); White Blood Count 12.7 X10*3/uL (4.8-10.8)
[2024-05-06 15:04] LABS: Alanine Aminotransferase 29 U/L (0-40); Albumin Level 4.3 g/dL (3.5-5.0); Alkaline Phosphatase 106 U/L (39-117); Anion Gap 12 (12-20); Aspartate Amino Transferase 23 U/L (5-37); Bilirubin Total 0.7 mg/dL (0.0-1.0); Blood Urea Nitrogen 12 mg/dL (9-16); Calcium 9.6 mg/dL (8.4-10.2); Carbon Dioxide 23 mmol/L (22-29); Chloride 107 mmol/L (96-108); Creatinine Clr Calc Pharmacy 76.4; Estimated Glomerular Filt Rate > 60; Glucose Random 142 mg/dL (60-115); Potassium 3.7 mmol/L (3.3-5.1); Sodium 138 mmol/L (135-145); Total Protein 7.5 g/dL (6.5-8.0)
[2024-05-06 15:21] LABS: Troponin-I High Sensitivity < 2.7 ng/L (<3.5-35.0)
[2024-05-06 15:33] LABS: Influenza A PCR NEGATIVE (Negative); Influenza B PCR NEGATIVE (Negative); Resp Syncy Virus RNA Qual PCR NEGATIVE (Negative); SARS COV2 PCR INHOUSE NEGATIVE (Negative)
[2024-05-06 22:00] VITALS: BP 142/62; PULSE 77; RESP 14; TEMP 36.9; O2SAT 99
[2024-05-06] MEDS: Ondansetron ODT 4 MG TAB.RAPDIS TRANSLINGU (22:17)
[2024-05-06 22:24] VITALS: BP 142/62; PULSE 77; RESP 14; TEMP 36.9; O2SAT 99
[2024-05-06 22:39] LABS: Lipase 256 U/L (8-78)
== END 2024-05-06 22:25 | disposition home or self-care (01) ==
PROVIDERS: Physician Assistant Medical; Emergency Provider Internal Medicine; PCP Internal Medicine Geriatric Medicine
DX: K29.70 Gastritis, unspecified, without bleeding (principal); R10.10 Upper abdominal pain, unspecified; R11.0 Nausea; R10.13 Epigastric pain; Z03.818 Encounter for observation for suspected exposure to other biological agents ruled out
CPT/HCPCS: 0241U; 80053; 83690; 83735; 84484; 85025; 93005; 99283; 99284

== ENCOUNTER → 2024-05-06 13:47 | Outpatient (BNV) | payer MEDICAID, SELFPAY | PROVIDERS: Emergency Provider Internal Medicine; PCP Internal Medicine Geriatric Medicine; Visit Provider Internal Medicine Cardiovascular Disease | DX: R94.31 Abnormal electrocardiogram [ECG] [EKG] (principal); R10.13 Epigastric pain | CPT/HCPCS: 93010 ==

== ENCOUNTER 2024-06-05 12:48 | Outpatient (REF) | payer MEDICAID, SELFPAY ==
[2024-06-05 13:28] LABS: MANUAL DIFF FLAG NO
[2024-06-05 13:49] LABS: Basophils Percent Auto 0.5 % (0-2); Eosinophils Absolute Auto 0.1 X10*3/uL (0.0-0.4); Eosinophils Percent Auto 1.6 % (0-4); Hematocrit 39.8 % (42.0-52.0); Hemoglobin 13.1 g/dl (14.0-18.0); Imm Gran Abs Auto 0.03 X10*3/uL (0.00-0.03); Imm Gran Pct Auto 0.4 % (0.0-0.4); Lymphocytes Absolute Auto 1.7 X10*3/uL (1.2-4.9); Lymphocytes Percent Auto 21.6 % (20-40); Mean Corpuscular HGB Conc 32.9 g/dl (31.0-36.0); Mean Corpuscular Volume 94.1 fL (80.0-98.0); Mean Platelet Volume 10.4 fL (9.4-12.4); Monocytes Absolute Auto 0.6 X10*3/uL (0.1-1.2); Monocytes Percent Auto 7.8 % (2-11); Neutrophils Absolute Auto 5.4 x10*3/uL (2.0-8.3); Neutrophils Percent Auto 68.1 % (45-73); Platelet Count 203 X10*3/uL (160-400); Red Blood Count 4.23 X10*6/uL (4.60-5.80); Red Cell Distribution Width 14.8 % (11.0-16.0)
[2024-06-05 14:24] LABS: Alanine Aminotransferase 36 U/L (0-40); Albumin Level 4.2 g/dL (3.5-5.0); Alkaline Phosphatase 112 U/L (39-117); Anion Gap 12 (12-20); Aspartate Amino Transferase 30 U/L (5-37); Bilirubin Total 0.3 mg/dL (0.0-1.0); Blood Urea Nitrogen 16 mg/dL (9-16); Calcium 9.1 mg/dL (8.4-10.2); Carbon Dioxide 23 mmol/L (22-29); Chloride 106 mmol/L (96-108); Cholesterol 162 mg/dL (<200); Estimated Glomerular Filt Rate > 60; Glucose Random 171 mg/dL (60-115); HDL Cholesterol 30 mg/dL (>40); LDL Cholesterol Calculated 110 mg/dL (<100); Potassium 4.1 mmol/L (3.3-5.1); Sodium 137 mmol/L (135-145); Total Protein 7.4 g/dL (6.5-8.0); Triglycerides 111 mg/dL (<150)
[2024-06-05 14:33] LABS: Reflex LDLD? No
[2024-06-06 03:54] LABS: Syphilis Screen Nonreactive (Nonreactive)
[2024-06-06 04:20] LABS: HBS Num1 2.37 mIU/mL (0-7.99); HBc Num1 1.87 S/CO (0.00-0.79); HBsAGNum1 0.35 S/CO (0.00-0.99); Hepatitis B Surface Antigen Negative (Negative); ~Hepatitis B Surface Antibody NONREACTIVE (Nonreactive)
[2024-06-06 04:21] LABS: Hepatitis A Antibody IgG REACTIVE (Nonreactive); ~Hepatitis A Antibody IgG 11.27 S/CO (0.00-0.99)
[2024-06-06 05:01] LABS: HBc Num3 1.82 S/CO; Hepatitis B Core Antibody Reactive (Nonreactive)
[2024-06-06 07:13] LABS: CT PCR NOT DETECTED (Not Detect.); NG PCR NOT DETECTED (Not Detect.)
[2024-06-07 14:39] LABS: HIV RNA PCR Qn Copies NOT DETECTED copies/mL (NOT DETECTED); HIV RNA PCR Qn Log Copies NOT DETECTED (NOT DETECTED)
[2024-06-08 05:09] LABS: Hepatitis B Core Antibody IgM NON-REACTIVE (NON-REACTIVE)
[2024-06-11 14:03] LABS: Absolute CD3 Count 1212 cells/uL (840-3060); Absolute CD4 Count 268 cells/uL (490-1740); Absolute CD8 Count 912 cells/uL (180-1170); Absolute Lymphocytes 1536 cells/uL (850-3900); CD4 CD8 Ratio 0.29 (0.86-5.00); Percent CD3 Cells 79 % (57-85); Percent CD4 Cells 17 % (30-61); Percent CD8 Cells 59 % (12-42)
== END 2024-06-05 12:49 | disposition home or self-care (01) ==
LOC: HO.LAB 12:48
PROVIDERS: PCP Internal Medicine; Visit Provider Internal Medicine
DX: B20 Human immunodeficiency virus [HIV] disease (principal)
CPT/HCPCS: 80053; 80061; 85025; 86359; 86360; 86704; 86705; 86706; 86708; 86780; 87340; 87491; 87536; 87591

== ENCOUNTER 2024-08-02 14:40 | Outpatient (REF) | payer MEDICAID, SELFPAY ==
--- NOTE | ~2024-08-02 | US_ITS ---
CLINICAL HISTORY: N20.0 - Calculus of kidney US Renal Comparison: US/SR - US ABDOMEN COMPLETE - 07/19/23 09:23 EST US/[place]/SR - US RENAL BI - 05/17/23 14:19 EDT Findings: Right kidney measures 9.6 x 5.2 x 5.6 cm in size. Simple cyst within the interpolar region of the right kidney measures 8 x 11 x 9 mm in size. No solid mass or hydronephrosis identified. Left kidney measures 10.2 x 5.3 x 4.8 cm in size. Simple cyst within the upper pole of the left kidney measures 13 x 10 x 12 mm in size. No solid mass or hydronephrosis. The cysts are not appreciably changed compared to the patient's prior renal ultrasound from May 17, 2023. Please note that these were not visualized on the patient's abdominal ultrasound from July 19, 2023. IMPRESSION: Unchanged simple bilateral renal cysts. This document has been electronically signed by: Darrion Buitrago MD on 08/03/2024 08:59:16
== END 2024-08-02 14:41 | disposition home or self-care (01) ==
LOC: HO.US 14:40
PROVIDERS: PCP Internal Medicine Geriatric Medicine; Visit Provider Urology
DX: N20.0 Calculus of kidney (principal)
CPT/HCPCS: 76775

== ENCOUNTER → 2024-08-02 14:42 | Outpatient (BNV) | payer MEDICAID, SELFPAY | PROVIDERS: PCP Internal Medicine Geriatric Medicine; Visit Provider Radiology Diagnostic Radiology | DX: N20.0 Calculus of kidney (principal) | CPT/HCPCS: 76775 ==

== ENCOUNTER → 2024-08-22 15:01 | Outpatient (BNV) | payer MEDICAID, SELFPAY | PROVIDERS: PCP Internal Medicine Geriatric Medicine; Visit Provider Internal Medicine Cardiovascular Disease | DX: R94.31 Abnormal electrocardiogram [ECG] [EKG] (principal) | CPT/HCPCS: 93306 ==

== ENCOUNTER 2024-09-04 14:10 | Outpatient (AMB) | payer MEDICAID, SELFPAY ==
--- NOTE | 2024-09-04 14:12 | MHC.OFFVIS ---
Intake Visit Reasons: Followup/US(set) Intake Note: Patient is present for F/U US Urology Medication:SILDENAFIL Antibiotic Allergy:NONE Blood Thinner:NONE Die Fitter Required: No Allergies No Known Allergies Allergy (Verified 09/04/24 14:13) HPI Comments Details: Christoph is a pleasant male. He is a patient of Dr. Alaniz. He is seen for the following urologic conditions - nephrolithiasis Yearly follow-up Divehi translation provided in office by [facility] Discussed imaging findings No evidence of stones Nephrolithiasis Seen in the emergency room late August 2020 No prior stone None on family stone history Stone analysis - mucous - background HIV/methadone Imaging - 10/04 CT scan distal right ureteric stone with mild hydronephrosis - 03/06 renal ultrasound no stones, small cyst on left kidney - 05/07 renal ultrasound no stones, of 1.6 cm cyst left kidney stable - 05/08 renal ultrasound no stones - 05/09 bilateral renal cysts no evidence of stones Therapeutic plan - encourage fluid intake - he will call if has more issues [facility] Medical History Pre-op examination Prostate cancer HIV (human immunodeficiency virus infection) Surgical History History of esophagogastroduodenoscopy (EGD) Hx of removal of cyst Family History Family/Other No problems noted. Social History Alcohol intake: never Substance Use Type: Heroin and Marijuana Review of Systems Const Denies chills and Denies fever(s) Card Reports no additional complaints and Denies syncope Resp Denies cough GI Denies abdominal pain and Denies heartburn Reports as per HPI and Denies change in libido Neuro Denies syncope Psych Denies change in libido Endo Denies change in libido Physical Exam Const General: cooperative, healthy appearing, comfortable and no acute distress Orientation/consciousness: patient oriented x3 HEENT Face and sinus: Yes normal facial exam Mouth: moist mucous membranes Neck Neck: Yes normal visual inspection, Yes full ROM and Yes trachea midline Chest Chest palpation & inspection: normal inspection of the chest Resp Effort & Inspection: normal respiratory effort, able to speak in complete sentences and no respiratory distress GI Inspection: Yes normal to inspection Back/Spine/Pelvis Cervical Spine: normal cervical lordosis Thoracic/Lumbar Spine: thoracic and lumbar spine normal to inspection Skin General skin exam: no rashes or lesions noted Neuro General: patient oriented x3, gait normal, tone normal and moves all extremities Extrem General: Yes normal to inspection and Yes capillary refill normal Assessment & Plan Assessment & Plan (1) Calcium kidney stones: Code(s): N20.0 - Calculus of kidney Category: Medical (2) Nephrolithiasis: Code(s): N20.0 - Calculus of kidney Category: Medical Plan P.r.n. follow-up Patient Instructions: This note is constructed using voice recognition software. While every effort has been made to ensure accuracy advertising clerk errors may have been included. Imaging studies, laboratory and physical exam results were discussed and reviewed in detail. No major barriers to patient understanding were identified. An opportunity to ask questions regarding the treatment plan was provided. All questions were answered. The patient expressed understanding and agreement with the above treatment plan. The patient is aware they should contact our office by phone for worsening of their current condition or the appearance of new urologic symptoms. Compliance is encouraged with any medications and followup testing that is ordered. It is a privilege to participate in the urologic care of your patient. If you have any questions or concerns regarding treatment for the above conditions, or other urologic issues, please do not hesitate to contact me. The office telephone contact is [phone]. Sincerely, Dr Casey Argueta MD, [facility] - Urology Compassionate Specialist Care for the Genitourinary System Coding Level of Care Code Est Pt Level 4 (69537) Diagnoses Calcium kidney stones N20.0 Nephrolithiasis N20.0
== END 2024-09-04 14:23 | disposition home or self-care (01) ==
PROVIDERS: PCP Internal Medicine Geriatric Medicine; Visit Provider Urology
DX: N20.0 Calculus of kidney (principal)
CPT/HCPCS: 99214

== ENCOUNTER → 2024-09-04 14:10 | Outpatient (BNVA) | payer MEDICAID, SELFPAY | PROVIDERS: PCP Internal Medicine Geriatric Medicine; Visit Provider Urology | DX: N20.0 Calculus of kidney (principal); Z79.899 Other long term (current) drug therapy | CPT/HCPCS: 99212 ==

== ENCOUNTER 2024-10-14 22:38 | Emergency (ER) | payer MEDICAID, SELFPAY ==
--- NOTE | ~2024-10-14 | CT_ITS ---
CLINICAL HISTORY: upper abd pain Exam: CT Abdomen and Pelvis Without IV Contrast Comparison ultrasound 07/19/2023 Findings: The liver density is homogeneous The gallbladder is normal in size containing multiple gallstones in the neck of the gallbladder. The spleen is normal in size No pancreatic ductal dilatation No hydronephrosis A dilated 3.3 cm diameter loop of small bowel is present in the anterior mid abdomen. There is no inflammatory thickening of the bowel wall. The appearance is most consistent with adynamic ileus. There is no discrete zone of transition obstructed point. A large amount of retained stool is present throughout the colon. The appendix is normal. No free fluid/free air The abdominal aorta caliber is normal. No adenopathy. Bladder outline is smooth No suspicious skeletal lesions. There is moderate degenerative disc space narrowing at L4-5 and L5-S1. Posterior disc margin osteophytes and facet hypertrophy are related to circumferential canal stenosis at these levels. Impression: 1. Cholelithiasis. 2. Moderate/large amount of retained stool with localized dilated small bowel ileus in the mid abdomen. Follow-up x-ray recommended to document progression or resolution of currently dilated short small bowel segment. 3. Degenerative spondylosis with canal stenosis at L4-5 and L5-S1 This document has been electronically signed by: Erick Nava MD on 10/15/2024 01:02:58
[2024-10-14 22:42] VITALS: BP 178/56; PULSE 85; RESP 20; TEMP 36.5; O2SAT 100; BMI 27.4
[2024-10-14 23:01] LABS: Basophils Percent Auto 0.2 % (0-2); Eosinophils Percent Auto 0.1 % (0-4); Hematocrit 37.3 % (42.0-52.0); Hemoglobin 12.8 g/dl (14.0-18.0); Imm Gran Abs Auto 0.03 X10*3/uL (0.00-0.03); Imm Gran Pct Auto 0.3 % (0.0-0.4); Lymphocytes Percent Auto 10.3 % (20-40); MANUAL DIFF FLAG NO; Mean Corpuscular HGB Conc 34.3 g/dl (31.0-36.0); Mean Corpuscular Hemoglobin 31.4 pg (27.0-33.0); Mean Corpuscular Volume 91.4 fL (80.0-98.0); Mean Platelet Volume 9.6 fL (9.4-12.4); Monocytes Absolute Auto 0.4 X10*3/uL (0.1-1.2); Monocytes Percent Auto 4.3 % (2-11); Neutrophils Absolute Auto 8.4 x10*3/uL (2.0-8.3); Neutrophils Percent Auto 84.8 % (45-73); Platelet Count 255 X10*3/uL (160-400); Red Blood Count 4.08 X10*6/uL (4.60-5.80); Red Cell Distribution Width 14.2 % (11.0-16.0); White Blood Count 9.9 X10*3/uL (4.8-10.8)
[2024-10-14 23:15] LABS: Alanine Aminotransferase 24 U/L (0-40); Albumin Level 4.4 g/dL (3.5-5.0); Alkaline Phosphatase 102 U/L (39-117); Anion Gap 15 (12-20); Aspartate Amino Transferase 21 U/L (5-37); Bilirubin Direct 0.2 mg/dL (0.0-0.5); Bilirubin Total 0.4 mg/dL (0.0-1.0); Blood Urea Nitrogen 19 mg/dL (9-16); Calcium 9.8 mg/dL (8.4-10.2); Carbon Dioxide 19 mmol/L (22-29); Chloride 108 mmol/L (96-108); Creatinine Clr Calc Pharmacy 75.6; Estimated Glomerular Filt Rate > 60; Glucose Random 164 mg/dL (60-115); Lipase 11 U/L (8-78); Potassium 4.2 mmol/L (3.3-5.1); Sodium 138 mmol/L (135-145); Total Protein 7.7 g/dL (6.5-8.0)
--- NOTE | 2024-10-14 23:45 | PC.NURSE ---
pt awaiting bed assignment from waiting room. pt screamed this rn found pt on. 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
--- NOTE | 2024-10-14 23:45 | PC.NURSE ---
Pt brought to RM 2 MD Anwer to bedside for eval.
--- NOTE | 2024-10-14 23:48 | ED_ITS ---
HPI - Abdominal Pain General Chief Complaint: Abdominal Pain Stated Complaint: abd pain / dizzy Time Seen by Provider: 10/14/24 23:48 Source: patient Mode of arrival: ambulatory Limitations: no limitations History of Present Illness ED Provider: HPI narrative: Patient's history of kidney stone and goals comes here for pain in upper abdomen since 1400 associated with nausea and vomiting no diarrhea no fever patient felt dizzy does have history of HIV and is on methadone last CD4 count were 268 in 06/09 no fever no chills in the ER patient almost passed out because of pain without any significant injury Related Data Home Medications ?Medication ?Instructions ?Recorded ?Confirmed chlorthalidone 25 mg tablet 25 mg PO DAILY 11/03/20 07/21/23 emtricitabine 200 mg-rilpivirine 1 tab PO DAILY 11/03/20 07/21/23 25 mg-tenofovir alafenam 25 mg tablet (Odefsey) methadone 10 mg/5 mL oral solution 85 mg PO DAILY 11/03/20 07/21/23 prazosin 2 mg capsule 2 mg PO TID 11/03/20 07/21/23 quetiapine 400 mg tablet (Seroquel) 400 mg PO BID 11/03/20 07/21/23 diclofenac sodium 1 % topical gel g topical DAILY 05/04/23 07/21/23 sildenafil 100 mg tablet (Viagra) 100 mg PO DAILY PRN 05/04/23 07/21/23 spironolactone 50 mg tablet 50 mg PO QAM 05/04/23 07/21/23 Previous Rx's ?Medication ?Instructions ?Recorded peg 3350-electrolytes 236 240 ml PO Q10M 1 day #4,000 mL 03/10/23 gram-22.74 gram-6.74 gram-5.86 gram solution (Golytely) famotidine 40 mg tablet 40 mg PO DAILY #90 tabs 12/19/23 metoclopramide HCl 5 mg tablet 5 mg PO BID #60 tabs 12/19/23 (Reglan) sennosides 8.6 mg capsule (senna) 17.2 mg (2 x 8.6 mg) PO BEDTIME 12/19/23 constipation 30 days #60 caps ondansetron 4 mg disintegrating 4 mg PO Q6-8H PRN nausea and 05/06/24 tablet vomiting #7 tabs polyethylene glycol 3350 17 17 g PO DAILY #510 grams 10/15/24 gram/dose oral powder (Miralax) Allergies Allergy/AdvReac Type Severity Reaction Status Date / Time No Known Allergies Allergy Verified 10/14/24 22:46 Review of Systems Review of Systems Yes all other systems are reviewed and are negative [facility] Past Medical History Medical History Pre-op examination Prostate cancer HIV (human immunodeficiency virus infection) Surgical History History of esophagogastroduodenoscopy (EGD) Hx of removal of cyst Family History Family History Family/Other No problems noted. Social History Social History Alcohol intake: never Substance Use Type: Heroin and Marijuana Advance Directives: No Advance Directives Information Provided: Yes Do you have a plan to hurt others: No Plan Physical Exam ED Vital Signs: Vital Signs - 24 hr 10/14/24 22:42 10/15/24 01:38 Temperature 97.7 F Pulse Rate 85 103 H Respiratory Rate 20 20 Blood Pressure 178/56 H 156/71 H Pulse Oximetry 100 100 Oxygen Delivery Method Room Air Room Air BMI result Body Mass Index 27.4 Appearance: Alert. Oriented X3. in moderate distress Eyes: no pallor or icterus ENT: Pharynx normal. Oral Mucosa moist Neck: Normal inspection. Neck supple. CVS: Normal heart rate and rhythm. Pulses normal. Respiratory: No respiratory distress. Equal air entry bilateral, no wheezing/rales/rhonchi Abdomen: Soft and tenderness in mid abdomen and epigastric area Bowel sounds are present, no mass palpable, no CVA tenderness Skin: Skin warm and dry. Normal skin color. Normal skin turgor. Extremities: No lower extremity edema. No calf tenderness Neuro: Oriented X 3. No motor deficit. No sensory deficit.No cerebellar signs , cranial nerves II-XII intact Medical Decision Making Medical Decision Making MDM Narrative: patient nonspecific abdominal pain with history of constipation taking methadone and heroin CT scan negative for acute except for constipation patient is feeling much better after pain medication and MiraLax Differential Diagnosis Differential Diagnoses: The differential diagnosis associated with the presentation includes cholelithiasis/ kidney stone/small-bowel obstruction /pancreatitis Admission/Observation Consideration of admission/observation: Escalation of care including admission/observation considered Lab Data MDM Lab Attestation statement: I reviewed the patient's lab results. 10/14/24 22:56 10/14/24 22:56 Labs: Lab Results 10/14/24 Range/Units 22:56 WBC 9.9 (4.8-10.8) X10*3/uL RBC 4.08 L (4.60-5.80) X10*6/uL Hgb 12.8 L (14.0-18.0) g/dl Hct 37.3 L (42.0-52.0) % MCV 91.4 (80.0-98.0) fL MCH 31.4 (27.0-33.0) pg MCHC 34.3 (31.0-36.0) g/dl RDW 14.2 (11.0-16.0) % Plt Count 255 D (160-400) X10*3/uL MPV 9.6 (9.4-12.4) fL Immature Gran % (Auto) 0.3 (0.0-0.4) % Neut % (Auto) 84.8 H (45-73) % Lymph % (Auto) 10.3 L (20-40) % [place] % (Auto) 4.3 (2-11) % Eos % (Auto) 0.1 (0-4) % Baso % (Auto) 0.2 (0-2) % Lymph # (Auto) 1.0 L (1.2-4.9) X10*3/uL [place] # (Auto) 0.4 (0.1-1.2) X10*3/uL Eos # (Auto) 0.0 (0.0-0.4) X10*3/uL Baso # (Auto) 0.0 (0.0-0.2) X10*3/uL Abs Immat Gran (auto) 0.03 (0.00-0.03) X10*3/uL Absolute Neuts (auto) 8.4 H (2.0-8.3) x10*3/uL Absolute Nucleated RBC 0.000 (0.0-0.012) X10*3/uL Nucleated RBC % (auto) 0.0 (0.0-0.2) /100WBC Sodium 138 (135-145) mmol/L Potassium 4.2 (3.3-5.1) mmol/L Chloride 108 (96-108) mmol/L Carbon Dioxide 19 L (22-29) mmol/L Anion Gap 15 (12-20) BUN 19 H (9-16) mg/dL Creatinine 0.99 (0.5-1.4) mg/dL Estim Creat Clear Calc 75.6 Estimated GFR > 60 Random Glucose 164 H (60-115) mg/dL Calcium 9.8 (8.4-10.2) mg/dL Total Bilirubin 0.4 (0.0-1.0) mg/dL Direct Bilirubin 0.2 (0.0-0.5) mg/dL AST 21 (5-37) U/L ALT 24 (0-40) U/L Alkaline Phosphatase 102 (39-117) U/L Total Protein 7.7 (6.5-8.0) g/dL Albumin 4.4 (3.5-5.0) g/dL Lipase 11 (8-78) U/L Independent Interpretation I performed an independent interpretation of an: CT Scan Radiology Impression Discussion of test interpretation with radiology: I have reviewed the radiologist's reading. Radiologist Impression: 1. Cholelithiasis. 2. Moderate/large amount of retained stool with localized dilated small bowel ileus in the mid abdomen. Follow-up x-ray recommended to document progression or resolution of currently dilated short small bowel segment. 3. Degenerative spondylosis with canal stenosis at L4-5 and L5-S1 This document has been electronically signed by: Erick Nava MD on 10/15/2024 01:02:58 Medications Administered Discontinued Medications Generic Name Dose Route Start Last Admin Trade Name Freq PRN Reason Stop Dose Admin Sodium Chloride 1,000 mls @ 999 mls/hr 10/14/24 23:49 10/15/24 01:43 Ns IV 10/15/24 00:49 Infused .Q1H1M ONE Infusion Ketorolac Tromethamine 30 mg 10/15/24 02:13 10/15/24 02:25 Ketorolac Tromethamine 30 Mg/Ml Vial IVPUSH 10/15/24 02:14 30 mg ONCE ONE Administration Magnesium Hydroxide 30 ml 10/15/24 02:12 10/15/24 02:27 Milk Of Magnesia 30 Ml Oral.Susp PO 10/15/24 02:13 30 ml ONCE ONE Administration Morphine Sulfate 4 mg 10/14/24 23:49 10/15/24 00:10 Morphine Sulfate 4 Mg/Ml Cartridge IVPUSH 10/14/24 23:50 4 mg ONCE ONE Administration Protocol Ondansetron HCl 4 mg 10/14/24 23:49 10/15/24 00:09 Ondansetron Hcl 4 Mg/2 Ml Vial IVPUSH 10/14/24 23:50 4 mg ONCE ONE Administration Discharge Plan Discharge Clinical Impression: Abdominal pain, Constipation Patient Disposition: Home, Self-Care Instructions: Constipation (DC), Abdominal Pain (ED) Additional Instructions: do not take heroin with methadone take stool softener for constipation follow up with your PCP Prescriptions: New polyethylene glycol 3350 [Miralax] 17 gram/dose powder 17 g PO DAILY Qty: 510 0RF No Action ondansetron 4 mg tablet,disintegrating 4 mg PO Q6-8H PRN (Reason: nausea and vomiting) Qty: 7 0RF Odefsey 200-25-25 mg tablet 1 tab PO DAILY Rx Instructions: must administer with a meal/food prazosin 2 mg capsule 2 mg PO TID quetiapine [Seroquel] 400 mg tablet 400 mg PO BID chlorthalidone 25 mg tablet 25 mg PO DAILY methadone 10 mg/5 mL solution 85 mg PO DAILY peg 3350-electrolytes [Golytely] 236-22.74-6.74 -5.86 gram recon soln 240 ml PO Q10M 1 Days Qty: 4000 0RF Rx Instructions: until fecal effluent is clear; do not exceed a total volume of 2,000 mL spironolactone 50 mg tablet 50 mg PO QAM diclofenac sodium 1 % gel topical DAILY sildenafil [Viagra] 100 mg tablet 100 mg PO DAILY PRN metoclopramide HCl [Reglan] 5 mg tablet 5 mg PO BID Qty: 60 6RF Rx Instructions: provider aware of potential interaction with seroquel and is monitoring famotidine 40 mg tablet 40 mg PO DAILY Qty: 90 2RF senna 8.6 mg capsule 17.2 mg PO BEDTIME 30 Days Qty: 60 6RF Print Language: Citizen Of [place]
[2024-10-15] MEDS: 0.9 % Sodium Chloride 1,000 ML 999 ML IV (00:08)
[2024-10-15] MEDS: ondansetron HCL 4 MG/2 ML VIAL IVPUSH (00:09)
[2024-10-15] MEDS: Morphine Sulfate 4 MG/ML CARTRIDGE IVPUSH (00:10)
[2024-10-15 01:38] VITALS: BP 156/71; PULSE 103; RESP 20; O2SAT 100
[2024-10-15] MEDS: Ketorolac Tromethamine 30 MG/ML VIAL IVPUSH (02:25)
[2024-10-15] MEDS: Milk of Magnesia 30 ML ORAL.SUSP PO (02:27)
[2024-10-15 03:20] VITALS: BP 156/71; PULSE 103; RESP 20; TEMP 37.1; O2SAT 100
== END 2024-10-15 03:24 | disposition home or self-care (01) ==
PROVIDERS: Emergency Provider Internal Medicine; PCP Internal Medicine Geriatric Medicine
DX: K59.00 Constipation, unspecified (principal); R10.10 Upper abdominal pain, unspecified; R11.2 Nausea with vomiting, unspecified; B20 Human immunodeficiency virus [HIV] disease; C61 Malignant neoplasm of prostate; Z79.899 Other long term (current) drug therapy
CPT/HCPCS: 36415; 74176; 80053; 82248; 83690; 85025; 96361; 96374; 96375; 99284; J1885; J2270; J2405

== ENCOUNTER → 2024-10-15 | Outpatient (BNV) | payer MEDICAID, SELFPAY | PROVIDERS: Emergency Provider Internal Medicine; PCP Internal Medicine Geriatric Medicine; Visit Provider Radiology Diagnostic Radiology | DX: R10.10 Upper abdominal pain, unspecified (principal); K80.20 Calculus of gallbladder without cholecystitis without obstruction; K59.00 Constipation, unspecified | CPT/HCPCS: 74176 ==

== ENCOUNTER 2025-01-02 18:13 | Inpatient (IN) | payer MEDICAID, SELFPAY ==
--- NOTE | ~2025-01-02 | CT_ITS ---
CLINICAL HISTORY: Left lower quadrant pain? Diverticular CT abdomen and pelvis with contrast Comparison: CT/SR - CT ABDOMEN PELVIS WO IV CON - 10/15/24 00:27 EDT Findings: No consolidation or effusion. Gallstones are identified within the gallbladder lumen. No CT evidence for acute cholecystitis. Minimal nonspecific thickening of the bilateral adrenal glands. The solid organs are otherwise within normal limits. No hydronephrosis or hydroureter. No bowel obstruction, pneumoperitoneum, or pneumatosis. Mild bowel wall thickening identified throughout the colon. Mildly limited evaluation of the rectum related to rectal underdistention. Mild fluid identified within the lumen of the colon and rectum. No pericolonic abscess. Scattered calcifications present within the prostate gland. No bladder wall thickening. Normal appendix. No acute fracture visualized. Vacuum disc phenomenon present at L4-L5 and L5-S1. Degenerative central canal stenosis present at L4-L5. IMPRESSION: 1. Mild colonic wall thickening present, consistent with a nonspecific colitis. No bowel obstruction. No pericolonic abscess. 2. Mild fluid identified within the lumen of the colon and rectum, suggesting diarrhea. 3. Cholelithiasis. No CT evidence for acute cholecystitis. This document has been electronically signed by: Anibal Roberts MD on 01/03/2025 01:37:36
[2025-01-02 18:23] VITALS: BP 166/85; BP 180/88; PULSE 84; PULSE 86; RESP 20; TEMP 36.1; O2SAT 98; O2SAT 99; BMI 26.6
[2025-01-02 18:25] VITALS: BP 166/85; PULSE 86; RESP 20; TEMP 36.1; O2SAT 99
--- NOTE | 2025-01-02 19:38 | ED.ABDPAIN ---
HPI - Abdominal Pain General Chief Complaint: Abdominal Pain Stated Complaint: vomiting x1 days, constipation,distention Time Seen by Provider: 01/02/25 19:38 Source: patient Mode of arrival: ambulatory Limitations: no limitations History of Present Illness ED Provider: HPI narrative: Patient's history of HIV, prostate cancer, history of kidney stone in the remote past comes here for sudden onset of pain in the left lower abdomen started earlier today patient with nausea and vomiting, vomited multiple times all day today unable to take his medications denies any urinary complaints patient does have history of constipation and had a bowel movement yesterday no fever no chills Related Data Home Medications ?Medication ?Instructions ?Recorded ?Confirmed chlorthalidone 25 mg tablet 25 mg PO DAILY 11/03/20 07/21/23 emtricitabine 200 mg-rilpivirine 1 tab PO DAILY 11/03/20 07/21/23 25 mg-tenofovir alafenam 25 mg tablet (Odefsey) methadone 10 mg/5 mL oral solution 85 mg PO DAILY 11/03/20 07/21/23 prazosin 2 mg capsule 2 mg PO TID 11/03/20 07/21/23 quetiapine 400 mg tablet (Seroquel) 400 mg PO BID 11/03/20 07/21/23 diclofenac sodium 1 % topical gel g topical DAILY 05/04/23 07/21/23 sildenafil 100 mg tablet (Viagra) 100 mg PO DAILY PRN 05/04/23 07/21/23 spironolactone 50 mg tablet 50 mg PO QAM 05/04/23 07/21/23 Previous Rx's ?Medication ?Instructions ?Recorded peg 3350-electrolytes 236 240 ml PO Q10M 1 day #4,000 mL 03/10/23 gram-22.74 gram-6.74 gram-5.86 gram solution (Golytely) famotidine 40 mg tablet 40 mg PO DAILY #90 tabs 12/19/23 metoclopramide HCl 5 mg tablet 5 mg PO BID #60 tabs 12/19/23 (Reglan) sennosides 8.6 mg capsule (senna) 17.2 mg (2 x 8.6 mg) PO BEDTIME 12/19/23 constipation 30 days #60 caps ondansetron 4 mg disintegrating 4 mg PO Q6-8H PRN nausea and 05/06/24 tablet vomiting #7 tabs polyethylene glycol 3350 17 17 g PO DAILY #510 grams 10/15/24 gram/dose oral powder (Miralax) Allergies Allergy/AdvReac Type Severity Reaction Status Date / Time No Known Allergies Allergy Verified 01/02/25 18:24 Review of Systems Review of Systems Yes all other systems are reviewed and are negative PMFSH Past Medical History Medical History Pre-op examination Prostate cancer HIV (human immunodeficiency virus infection) Surgical History History of esophagogastroduodenoscopy (EGD) Hx of removal of cyst Family History Family History Family/Other No problems noted. Social History Social History Alcohol intake: never Substance Use Type: Heroin and Marijuana Advance Directives: No Advance Directives Information Provided: Yes Do you have a plan to hurt others: No Plan Physical Exam ED Vital Signs: Vital Signs - 24 hr 01/02/25 18:23 01/02/25 18:25 01/02/25 19:58 Temperature 97.0 F 97.0 F 97.6 F Pulse Rate 86 86 101 H Respiratory Rate 20 20 22 H Blood Pressure 166/85 H 166/85 H 190/70 H Pulse Oximetry 99 99 96 Oxygen Delivery Method Room Air Room Air Room Air 01/02/25 22:08 01/02/25 23:10 01/02/25 23:42 Temperature 97.3 F 97.3 F 99.0 F Pulse Rate 95 118 H 89 Respiratory Rate 18 22 H 20 Blood Pressure 187/67 H 208/102 H 213/90 H Pulse Oximetry 98 98 99 Oxygen Delivery Method Room Air Room Air Room Air 01/03/25 00:45 01/03/25 01:18 Temperature 99.1 F Pulse Rate 97 102 H Respiratory Rate 16 17 Blood Pressure 201/101 H 194/99 H Pulse Oximetry 100 96 Oxygen Delivery Method Room Air Room Air BMI result Body Mass Index 26.6 Appearance: Alert. Oriented X3. In moderate distress Eyes: PERRLA, No Nystagmus ENT: Pharynx normal. Oral Mucosa moist Neck: Normal inspection. Neck supple. CVS: Normal heart rate and rhythm. Pulses normal. Respiratory: No respiratory distress. Equal air entry bilateral, no wheezing/rales/rhonchi Abdomen: Soft and deep tenderness left lower quadrant with guarding Bowel sounds are present, no mass palpable, no CVA tenderness Skin: Skin warm and dry. Normal skin color. Normal skin turgor. Extremities: No lower extremity edema. No calf tenderness Neuro: Oriented X 3. No motor deficit. Medical Decision Making Medical Decision Making [facility] Narrative: Patient with HIV with undetectable viral load, history of which opiate dependence on methadone, remote history of kidney stone comes here for diffuse abdominal pain mostly on the left lower abdomen with nausea vomiting all day denies any urinary symptoms workup showed UTI with leukocytosis and lactic acidosis patient has received IV fluids IV antibiotics CT scan of the abdomen is essentially negative except for fluid containing bowels suggestive of colitis patient has received IV Rocephin will admit patient for further evaluation treatment for pyelonephritis Differential Diagnosis Differential Diagnoses: The differential diagnosis associated with the presentation includes UTI/kidney stone/diverticulitis/pyelonephritis Admission/Observation Consideration of admission/observation: Escalation of care including admission/observation considered Consult Healthcare Provider Management of the patient was discussed with: Hospitalist Lab Data [facility] Lab Attestation statement: I reviewed the patient's lab results. 01/02/25 20:30 01/02/25 22:38 Labs: Lab Results 01/02/25 01/02/25 01/02/25 Range/Units 20:30 20:56 22:38 WBC 15.5 H (4.8-10.8) X10*3/uL RBC 4.27 L (4.60-5.80) X10*6/uL Hgb 13.2 L (14.0-18.0) g/dl Hct 39.0 L (42.0-52.0) % MCV 91.3 (80.0-98.0) fL MCH 30.9 (27.0-33.0) pg MCHC 33.8 (31.0-36.0) g/dl RDW 14.1 (11.0-16.0) % Plt Count 315 (160-400) X10*3/uL MPV 9.7 (9.4-12.4) fL Immature Gran % (Auto) Cancelled Neut % (Auto) Cancelled Lymph % (Auto) Cancelled [place] % (Auto) Cancelled Eos % (Auto) Cancelled Baso % (Auto) Cancelled Lymph # (Auto) Cancelled [place] # (Auto) Cancelled Eos # (Auto) Cancelled Baso # (Auto) Cancelled Abs Immat Gran (auto) Cancelled Absolute Neuts (auto) Cancelled Absolute Nucleated RBC 0.000 (0.0-0.012) X10*3/uL Nucleated RBC % (auto) 0.0 (0.0-0.2) /100WBC Neutrophils % (Manual) 92 H (45-73) % Band Neutrophils % 5 (3-5) % Lymphocytes % (Manual) 3 L (20-40) % Abs Neuts (Manual) 15.0 H (2.0-8.3) X10*3/uL Lymphocytes # (Manual) 0.5 L (1.2-4.9) X10*3/uL Platelet Estimate NORMAL (NORMAL) Plt Morphology Comment NORMAL RBC Morphology NORMAL Smear Tech's Comments MANUAL DIFF Sodium 136 (135-145) mmol/L Potassium 4.8 (3.3-5.1) mmol/L Chloride 107 (96-108) mmol/L Carbon Dioxide 19 L (22-29) mmol/L Anion Gap 15 (12-20) BUN 15 (9-16) mg/dL Creatinine 0.91 (0.5-1.4) mg/dL Estim Creat Clear Calc 75.9 Estimated GFR > 60 Random Glucose 209 H (60-115) mg/dL Lactic Acid 2.1 H* (0.5-2.0) mmol/L Lactic Acid F/U @ 2Hr (0.5-2.0) mmol/L Calcium 9.2 D (8.4-10.2) mg/dL Total Bilirubin 0.8 (0.0-1.0) mg/dL AST 69 H (5-37) U/L ALT 54 H (0-40) U/L Alkaline Phosphatase 155 H (39-117) U/L Total Protein 7.7 (6.5-8.0) g/dL Albumin 4.2 (3.5-5.0) g/dL Lipase 11 (8-78) U/L Urine Color Dark Yellow Urine Appearance Clear Urine pH 6.0 (5.0-9.0) Ur Specific [place] 1.025 (1.005-1.025) Urine Protein 30 (1+) H (Neg-Trace) mg/dL Urine Glucose (UA) >=1000 H (Negative) mg/dL Urine Ketones 15 (Negative) mg/dL Urine Blood Negative (Negative) Urine Nitrite Positive H (Negative) Ur Leukocyte Esterase Small (1+) H (Negative) Urine RBC 0-2 (0-2) /HPF Urine WBC 0-5 (0-5) /HPF Ur Squamous Epith Cells 0-2 (0-2) /HPF Urine Bacteria None Seen (None Seen) Hyaline Casts 0-2 (0-2) /LPF 01/02/25 Range/Units 22:46 WBC (4.8-10.8) X10*3/uL RBC (4.60-5.80) X10*6/uL Hgb (14.0-18.0) g/dl Hct (42.0-52.0) % MCV (80.0-98.0) fL MCH (27.0-33.0) pg MCHC (31.0-36.0) g/dl RDW (11.0-16.0) % Plt Count (160-400) X10*3/uL MPV (9.4-12.4) fL Immature Gran % (Auto) Neut % (Auto) Lymph % (Auto) [place] % (Auto) Eos % (Auto) Baso % (Auto) Lymph # (Auto) [place] # (Auto) Eos # (Auto) Baso # (Auto) Abs Immat Gran (auto) Absolute Neuts (auto) Absolute Nucleated RBC (0.0-0.012) X10*3/uL Nucleated RBC % (auto) (0.0-0.2) /100WBC Neutrophils % (Manual) (45-73) % Band Neutrophils % (3-5) % Lymphocytes % (Manual) (20-40) % Abs Neuts (Manual) (2.0-8.3) X10*3/uL Lymphocytes # (Manual) (1.2-4.9) X10*3/uL Platelet Estimate (NORMAL) Plt Morphology Comment RBC Morphology Smear Tech's Comments Sodium (135-145) mmol/L Potassium (3.3-5.1) mmol/L Chloride (96-108) mmol/L Carbon Dioxide (22-29) mmol/L Anion Gap (12-20) BUN (9-16) mg/dL Creatinine (0.5-1.4) mg/dL Estim Creat Clear Calc Estimated GFR Random Glucose (60-115) mg/dL Lactic Acid (0.5-2.0) mmol/L Lactic Acid F/U @ 2Hr 2.9 H* (0.5-2.0) mmol/L Calcium (8.4-10.2) mg/dL Total Bilirubin (0.0-1.0) mg/dL AST (5-37) U/L ALT (0-40) U/L Alkaline Phosphatase (39-117) U/L Total Protein (6.5-8.0) g/dL Albumin (3.5-5.0) g/dL Lipase (8-78) U/L Urine Color Urine Appearance Urine pH (5.0-9.0) Ur Specific [place] (1.005-1.025) Urine Protein (Neg-Trace) mg/dL Urine Glucose (UA) (Negative) mg/dL Urine Ketones (Negative) mg/dL Urine Blood (Negative) Urine Nitrite (Negative) Ur Leukocyte Esterase (Negative) Urine RBC (0-2) /HPF Urine WBC (0-5) /HPF Ur Squamous Epith Cells (0-2) /HPF Urine Bacteria (None Seen) Hyaline Casts (0-2) /LPF Radiology Impression Discussion of test interpretation with radiology: I have reviewed the radiologist's reading. Radiologist Impression: [place] [id number] CT Scan Report Signed Patient: Christoph Zhang MR#: [id number] : 1960 Acct:[id number] Age/Sex: 64 / M ADM Date: 01/02/25 Loc: HO.ED Attending Dr: Ordering Physician: Ney Shelley MD Date of Service: 01/03/25 Procedure(s): CT abdomen pelvis w IV con Accession Number(s): [id number] cc: Physician,Unknown ; Ney Shelley MD~ Report Number: [id number]: Total DLP = 888.00 mGy-cm CLINICAL HISTORY: Left lower quadrant pain? Diverticular CT abdomen and pelvis with contrast Comparison: CT/SR - CT ABDOMEN PELVIS WO IV CON - 10/15/24 00:27 EDT Findings: No consolidation or effusion. Gallstones are identified within the gallbladder lumen. No CT evidence for acute cholecystitis. Minimal nonspecific thickening of the bilateral adrenal glands. The solid organs are otherwise within normal limits. No hydronephrosis or hydroureter. No bowel obstruction, pneumoperitoneum, or pneumatosis. Mild bowel wall thickening identified throughout the colon. Mildly limited evaluation of the rectum related to rectal underdistention. Mild fluid identified within the lumen of the colon and rectum. No pericolonic abscess. Scattered calcifications present within the prostate gland. No bladder wall thickening. Normal appendix. No acute fracture visualized. Vacuum disc phenomenon present at L4-L5 and L5-S1. Degenerative central canal stenosis present at L4-L5. IMPRESSION: 1. Mild colonic wall thickening present, consistent with a nonspecific colitis. No bowel obstruction. No pericolonic abscess. 2. Mild fluid identified within the lumen of the colon and rectum, suggesting diarrhea. 3. Cholelithiasis. No CT evidence for acute cholecystitis. Medications Administered Discontinued Medications Generic Name Dose Route Start Last Admin Trade Name Freq PRN Reason Stop Dose Admin Ceftriaxone Sodium 1 gm 01/02/25 22:44 01/02/25 23:13 Ceftriaxone Sodium 1 Gm Vial IVPUSH 01/02/25 22:45 1 gm ONCE ONE Administration Sodium Chloride 1,000 mls @ 999 mls/hr 01/02/25 19:42 01/02/25 22:26 Ns IV 01/02/25 20:42 Infused .Q1H1M ONE Infusion Sodium Chloride 1,000 mls @ 999 mls/hr 01/02/25 22:44 01/02/25 23:13 Ns IV 01/02/25 23:44 999 mls/hr .Q1H1M ONE Administration Iohexol 85 ml 01/03/25 00:28 01/03/25 00:29 Iohexol 350 Mg/Ml 100 Ml Infus..Btl IV 01/03/25 00:29 85 ml ONCE ONE Administration Ketorolac Tromethamine 30 mg 01/02/25 19:45 01/02/25 20:44 Ketorolac Tromethamine 30 Mg/Ml Vial IVPUSH 01/02/25 19:46 30 mg ONCE ONE Administration Morphine Sulfate 4 mg 01/02/25 19:42 01/02/25 20:34 Morphine Sulfate 4 Mg/Ml Cartridge IVPUSH 01/02/25 19:43 4 mg ONCE ONE Administration Protocol Morphine Sulfate 4 mg 01/02/25 23:12 01/02/25 23:22 Morphine Sulfate 4 Mg/Ml Cartridge IVPUSH 01/02/25 23:13 4 mg ONCE ONE Administration Protocol Ondansetron HCl 4 mg 01/02/25 19:42 01/02/25 20:34 Ondansetron Hcl 4 Mg/2 Ml Vial IVPUSH 01/02/25 19:43 4 mg ONCE ONE Administration Discharge Plan Discharge Clinical Impression: Acute bacterial pyelonephritis, HIV (human immunodeficiency virus infection), Nausea and vomiting Patient Disposition: Admitted As Inpatient Print Language: Cambodian
[2025-01-02 19:58] VITALS: BP 190/70; PULSE 101; RESP 22; TEMP 36.4; O2SAT 96
--- NOTE | 2025-01-02 20:20 | PC.NURSE ---
Difficult stick multiple attempts to place line made. Provider at bedside placing US guided line
[2025-01-02] MEDS: ondansetron HCL 4 MG/2 ML VIAL IVPUSH (20:34)
[2025-01-02] MEDS: Morphine Sulfate 4 MG/ML CARTRIDGE IVPUSH ×2 (20:34→23:22)
[2025-01-02] MEDS: 0.9 % Sodium Chloride 1,000 ML 999 ML IV ×2 (20:34→23:13)
--- NOTE | 2025-01-02 20:35 | PC.NURSE ---
US guided line place by Dr. Boyd In R arm. Labs obtained and sent down to lab for processing. PT medicated as per SEP.
[2025-01-02 20:39] LABS: Hemoglobin 13.2 g/dl (14.0-18.0); Mean Corpuscular HGB Conc 33.8 g/dl (31.0-36.0); Mean Corpuscular Hemoglobin 30.9 pg (27.0-33.0); Mean Corpuscular Volume 91.3 fL (80.0-98.0); Mean Platelet Volume 9.7 fL (9.4-12.4); Platelet Count 315 X10*3/uL (160-400); Red Blood Count 4.27 X10*6/uL (4.60-5.80); Red Cell Distribution Width 14.1 % (11.0-16.0); White Blood Count 15.5 X10*3/uL (4.8-10.8)
[2025-01-02] MEDS: Ketorolac Tromethamine 30 MG/ML VIAL IVPUSH (20:44)
[2025-01-02 21:00] LABS: Lactic Acid 2.1 mmol/L (0.5-2.0)
[2025-01-02 21:04] LABS: Appearance Urine Clear; Color Urine Dark Yellow; Glucose Urine UA >=1000 mg/dL (Negative); Leukocyte Esterase Urine Small (1+) (Negative); Nitrite Urine Positive (Negative); Specific Gravity - Urine 1.025 (1.005-1.025); UMIC TRIGGER UACC YES; Urine Blood Negative (Negative); Urine Ketones 15 mg/dL (Negative); Urine Protein 30 (1+) mg/dL (Neg-Trace)
[2025-01-02 21:11] LABS: SLIDE REVIEW MANUAL DIFF
[2025-01-02 21:17] LABS: Band Neutrophils Percent 5 % (3-5); Lymphocytes Absolute Manual 0.5 X10*3/uL (1.2-4.9); Lymphocytes Percent Manual 3 % (20-40); Neutrophils Percent Manual 92 % (45-73)
[2025-01-02 21:19] LABS: Platelet Estimate NORMAL (NORMAL); Platelet Morphology Comment NORMAL; RBC Morphology NORMAL
[2025-01-02 21:27] LABS: Bacteria Urine None Seen (None Seen); Hyaline Casts Urine 0-2 /LPF (0-2); RBC Urine 0-2 /HPF (0-2); Squamous Epithelial Cell Urine 0-2 /HPF (0-2); UACC Culture Trigger YES; WBC Urine 0-5 /HPF (0-5)
[2025-01-02 22:08] VITALS: BP 187/67; PULSE 95; RESP 18; TEMP 36.3; O2SAT 98
[2025-01-02 22:33] LABS: Reflex Lactate? Lactic Acid Added
--- NOTE | 2025-01-02 22:50 | PC.NURSE ---
Right sided EJ placed by Dr. Boyd.
[2025-01-02 23:09] LABS: ~Lactic Acid-LAB USE ONLY 2.9 mmol/L (0.5-2.0)
[2025-01-02 23:10] VITALS: BP 208/102; PULSE 118; RESP 22; TEMP 36.3; O2SAT 98
[2025-01-02] MEDS: cefTRIAXone sodium 1 GM VIAL IVPUSH (23:13)
[2025-01-02 23:17] LABS: Alanine Aminotransferase 54 U/L (0-40); Albumin Level 4.2 g/dL (3.5-5.0); Alkaline Phosphatase 155 U/L (39-117); Anion Gap 15 (12-20); Aspartate Amino Transferase 69 U/L (5-37); Bilirubin Total 0.8 mg/dL (0.0-1.0); Blood Urea Nitrogen 15 mg/dL (9-16); Calcium 9.2 mg/dL (8.4-10.2); Carbon Dioxide 19 mmol/L (22-29); Chloride 107 mmol/L (96-108); Creatinine Clr Calc Pharmacy 75.9; Estimated Glomerular Filt Rate > 60; Glucose Random 209 mg/dL (60-115); Lipase 11 U/L (8-78); Potassium 4.8 mmol/L (3.3-5.1); Sodium 136 mmol/L (135-145); Total Protein 7.7 g/dL (6.5-8.0)
--- NOTE | 2025-01-02 23:37 | PC.NURSE ---
notified anwer of PTs BP and pain level
[2025-01-02 23:42] VITALS: BP 213/90; PULSE 89; RESP 20; TEMP 37.2; O2SAT 99
--- NOTE | 2025-01-02 23:45 | PC.NURSE ---
Notified provider of bp 223/98, plan for repeat vitals and pain reassessment
[2025-01-03] VITALS (11 sets, daily range): BP systolic 154–212; BP diastolic 53–101; PULSE 83–112; RESP 11–23; TEMP 36.7–37.4; O2SAT 96–100; BMI 28.6
[2025-01-03] MEDS: iohexoL 350 MG/ML 100 ML INFUS..BTL 85 ML IV (00:29)
[2025-01-03 00:50] LABS: Reflex Lactate? 2 Y
[2025-01-03] MEDS: methADONE HCl 20 MG/2 ML ORAL.CONC 40 MG PO (02:24)
--- NOTE | 2025-01-03 02:25 | PC.NURSE ---
phlebotomy at bedside for lactic redraw. Multiple attempts made by ED staff to draw lab with no success
[2025-01-03] MEDS: Prochlorperazine Edisylate 10 MG/2 ML VIAL 5 MG IVPUSH (02:29)
[2025-01-03] MEDS: HYDROmorphone HCl 2 MG/ML VIAL 1.5 MG IVPUSH (02:30)
--- NOTE | 2025-01-03 02:37 | PM.IMHP ---
History of Present Illness Date of Service: 01/03/25 Attending physician on admission: Jeff Mcdonald Chief Complaint: Abdominal pain, vomiting and diarrhea Christoph Tang is a 64 years old man with past medical history significant for HIV on HAARTs (Odefsey), hypertension, GERD and opiate dependence on methadone presents to the emergency department complaining of severe generalized abdominal pain associated with nonbloody watery diarrhea and multiple episodes of nonbloody emesis. The symptoms started yesterday around 14:00. He took his methadone yesterday. Patient denied recent use of antibiotics, travel history or contact with sick people. According to patient's significant other patient became very sweaty. No fever or chills.. Denied headache, chest pain, shortness or breath or palpitations. He also denied any acute urinary symptoms. He is a tobacco smoker. Denied alcohol abuse or illicit drug use. In the ED, he was found to have mild tachycardia and significant elevated blood pressure (max 209/95). Oxygen saturation is normal on room air. WBC count is 15.5, hemoglobin 13.2 and platelets 315. There are no significant electrolyte imbalances. Random glucose 209. There is lactic acidosis 2.1--> 2.9. Transaminases and alk-phos are elevated. Bilirubin and lipase are normal. Urinalysis showed glucosuria, protein 1+, leukocyte esterase 1+, positive nitrate and normal WBC. Abdomen pelvis CT scan with IV contrast showed mild colonic wall thickening consistent with colitis, no bowel obstruction, no pericolic abscess and mild fluid identified within the lumen of the colon and rectum suggesting diarrhea. It also showed cholelithiasis with no evidence of acute cholecystitis. ED tx: NS 2 L bolus, morphine 8 mg IV Toradol, methadone 4 mg p.o., ceftriaxone 1 g IV, ketorolac 30 mg IV, Zofran 4 mg IV. Review of Systems Review of Systems: All 12 systems were reviewed and normal except as noted in HPI. [facility] Medical History Pre-op examination Prostate cancer HIV (human immunodeficiency virus infection) Family History Family/Other No problems noted. Surgical History History of esophagogastroduodenoscopy (EGD) Hx of removal of cyst Social History Alcohol intake: never Substance Use Type: Heroin and Marijuana Advance Directives: No Advance Directives Information Provided: Yes Do you have a plan to hurt others: No Plan Meds Allergies Allergy/AdvReac Type Severity Reaction Status Date / Time No Known Allergies Allergy Verified 01/02/25 18:24 Active Medications: Current Medications Acetaminophen (Acetaminophen 325 Mg Tablet) 975 mg PO Q6H PRN PRN Reason: Pain, Mild 1-3,fever,headache Ceftriaxone Sodium (Ceftriaxone Sodium 1 Gm Vial) 1 gm IVPUSH Q24H ABIMBOLA Enoxaparin Sodium (Enoxaparin Sodium 40 Mg/0.4 Ml Syringe) 40 mg SUBCUT Q24H ABIMBOLA Hydromorphone HCl (Hydromorphone Hcl 1 Mg/Ml Syringe) 1 mg IVPUSH Q3H PRN; Protocol PRN Reason: Pain, Severe (Pain Scale 7-10) Lactated Ringer's (Lr) 1,000 mls @ 125 mls/hr IVCONT .Q8H ABIMBOLA Metronidazole (Flagyl) 500 mg in 100 mls @ 100 mls/hr IV Q8H ABIMBOLA Sodium Chloride (0.9 % Sodium Chloride Flush 3 Ml Syringe) 3 ml IVFLUSH QSHIFT ABIMBOLA Home Medications ?Medication ?Instructions ?Recorded ?Confirmed ?Last Taken ?Type chlorthalidone 25 mg tablet 25 mg PO DAILY 11/03/20 07/21/23 Unknown History emtricitabine 200 mg-rilpivirine 1 tab PO DAILY 11/03/20 07/21/23 Unknown History 25 mg-tenofovir alafenam 25 mg tablet (Odefsey) methadone 10 mg/5 mL oral solution 85 mg PO DAILY 11/03/20 07/21/23 Unknown History prazosin 2 mg capsule 2 mg PO TID 11/03/20 07/21/23 Unknown History quetiapine 400 mg tablet (Seroquel) 400 mg PO BID 11/03/20 07/21/23 Unknown History diclofenac sodium 1 % topical gel g topical DAILY 05/04/23 07/21/23 Unknown History sildenafil 100 mg tablet (Viagra) 100 mg PO DAILY PRN 05/04/23 07/21/23 Unknown History spironolactone 50 mg tablet 50 mg PO QAM 05/04/23 07/21/23 Unknown History Physical Exam Vital Signs and Narrative: Vital Signs: Last Vital Signs Temp 99.1 F 01/03/25 00:45 Pulse 102 H 01/03/25 01:18 Resp 17 01/03/25 01:18 BP 194/99 H 01/03/25 01:18 Pulse Ox 96 01/03/25 01:18 O2 Del Method Room Air 01/03/25 01:18 BMI result Body Mass Index 26.6 Constitutional - Awake and Alert. Patient looked very uncomfortable due to severe pain. Actively sitting on the commode. Has active nonbloody diarrhea. HEENT - PER, EOMI Heart - RRR, no murmurs. Lungs - Normal lung expansion, Normal respiratory effort, No respiratory distress, CTA bilaterally Abdominal - Very distended, increased BS, generalized tenderness. Extremities - no calf tenderness bilaterally, no swelling Musculoskeletal - Normal inspection, normal ROM Skin - Warm/Dry Neurological - Alert & oriented x3. No facial droop. Normal speech. Moving all extremities spontaneously. Psychological - Anxious affect Results Labs 01/02/25 20:30 01/02/25 22:38 Labs: Laboratory Results - last 24 hr 01/02/25 01/02/25 01/02/25 20:30 20:56 22:38 MCV 91.3 MCH 30.9 MCHC 33.8 RDW 14.1 Plt Count 315 MPV 9.7 Immature Gran % (Auto) Cancelled Neut % (Auto) Cancelled Lymph % (Auto) Cancelled [place] % (Auto) Cancelled Eos % (Auto) Cancelled Baso % (Auto) Cancelled Lymph # (Auto) Cancelled [place] # (Auto) Cancelled Eos # (Auto) Cancelled Baso # (Auto) Cancelled Abs Immat Gran (auto) Cancelled Absolute Neuts (auto) Cancelled Absolute Nucleated RBC 0.000 Nucleated RBC % (auto) 0.0 Neutrophils % (Manual) 92 H Band Neutrophils % 5 Lymphocytes % (Manual) 3 L Abs Neuts (Manual) 15.0 H Lymphocytes # (Manual) 0.5 L Platelet Estimate NORMAL Plt Morphology Comment NORMAL RBC Morphology NORMAL Smear Tech's Comments MANUAL DIFF Anion Gap 15 Estim Creat Clear Calc 75.9 Estimated GFR > 60 Random Glucose 209 H Lactic Acid 2.1 H* Lactic Acid F/U @ 2Hr Calcium 9.2 D Total Bilirubin 0.8 AST 69 H ALT 54 H Alkaline Phosphatase 155 H Total Protein 7.7 Albumin 4.2 Lipase 11 Urine Color Dark Yellow Urine Appearance Clear Urine pH 6.0 Ur Specific [place] 1.025 Urine Protein 30 (1+) H Urine Glucose (UA) >=1000 H Urine Ketones 15 Urine Blood Negative Urine Nitrite Positive H Ur Leukocyte Esterase Small (1+) H Urine RBC 0-2 Urine WBC 0-5 Ur Squamous Epith Cells 0-2 Urine Bacteria None Seen Hyaline Casts 0-2 01/02/25 22:46 MCV MCH MCHC RDW Plt Count MPV Immature Gran % (Auto) Neut % (Auto) Lymph % (Auto) [place] % (Auto) Eos % (Auto) Baso % (Auto) Lymph # (Auto) [place] # (Auto) Eos # (Auto) Baso # (Auto) Abs Immat Gran (auto) Absolute Neuts (auto) Absolute Nucleated RBC Nucleated RBC % (auto) Neutrophils % (Manual) Band Neutrophils % Lymphocytes % (Manual) Abs Neuts (Manual) Lymphocytes # (Manual) Platelet Estimate Plt Morphology Comment RBC Morphology Smear Tech's Comments Anion Gap Estim Creat Clear Calc Estimated GFR Random Glucose Lactic Acid Lactic Acid F/U @ 2Hr 2.9 H* Calcium Total Bilirubin AST ALT Alkaline Phosphatase Total Protein Albumin Lipase Urine Color Urine Appearance Urine pH Ur Specific [place] Urine Protein Urine Glucose (UA) Urine Ketones Urine Blood Urine Nitrite Ur Leukocyte Esterase Urine RBC Urine WBC Ur Squamous Epith Cells Urine Bacteria Hyaline Casts Assessment and Plan (1) Nausea vomiting and diarrhea: Status: Acute (2) Abdominal pain: Qualifiers: Abdominal location: generalized Qualified Code(s): R10.84 - Generalized abdominal pain Status: Acute (3) GERD (gastroesophageal reflux disease): Qualifiers: Esophagitis presence: esophagitis presence not specified Qualified Code(s): K21.9 - Gastro-esophageal reflux disease without esophagitis Status: Acute Plan Christoph Tang is a 64 y/o man admitted with: Generalized abdominal pain, vomiting and nonbloody watery diarrhea, likely secondary to colitis in the setting of underlying HIV infection. Admit to hospitalist service. NPO. Continue IV fluids, IV pain meds, antiemetic therapy and IV antibiotic therapy with ceftriaxone and Flagyl. Check GI panel, HIV viral load, CD4, COVID-19, influenza, ova + parasite and stool calprotectin. Uncontrolled hypertension. Labetalol 10 mg IV now. Continue amlodipine and prazosin. Spironolactone hold to avoid dehydration in the setting of vomiting and diarrhea. Continue to monitor blood pressure. Elevated transaminases and alk-phos; normal bilirubin. Check hepatitis panel. Continue to monitor LFTs. Lactic acidosis, likely secondary to vomiting (volume contraction). SIRS criteria, doubt sepsis. Received NS 2 L bolus in ED, will give an additional bolus of ringer lactate. Blood cultures were obtained -we will follow as resolved. Patient will be receiving empiric IV antibiotic therapy with Flagyl and ceftriaxone. Hyperglycemia: Random glucose is 209. Check hemoglobin A1c. Continue to monitor BG checks every 4 hours while NPO. Abnormal urine: Nitrite positive, leukocyte esterase 1+, however, WBC is 0-5. Doubt UTI. Urine culture obtained -will follow results History of HIV. Continue Odefsey. GERD. Pepcid IV. Opiate dependence. Continue methadone 85 mg p.o. daily (pt takes it in the afternoon) after dose being verified with patient's clinic. DVT prophylaxis: Lovenox Code status: Full Patient will need hospitalization for at least 2 midnights for severe symptoms of colitis treatment with IV fluids, empiric IV antibiotic therapy and pain medications; he also need close monitoring of vital signs and blood workup. Quality Stroke Does the patient have a stroke diagnosis?: No VTE Prior VTE?: No VTE Risk Level:: Medical - moderate - high VTE Device Contraindication: Treatment Not Indicated VTE Drug Contraindication: N/A - Med Ordered
[2025-01-03] MEDS: Lactated Ringers 1,000 ML 125 ML IVCONT ×3 (02:41→18:10)
[2025-01-03] MEDS: Labetalol HCL 100 MG/20 ML VIAL 10 MG IVPUSH (02:43)
[2025-01-03] MEDS: diazePAM 10 MG/2 ML CARTRIDGE 5 MG IVPUSH (02:43)
[2025-01-03] MEDS: metroNIDAZOLE/NS 500 MG/100 ML PIGGYBACK 100 MG IV ×3 (02:43→18:53)
--- NOTE | 2025-01-03 02:56 | PC.NURSE ---
PT medicated as per SEP. Now sleeping comfortably, respirations even and unlabored. call booth within reach. plan of care ongoing
[2025-01-03 03:08] LABS: Amphetamine Screen Urine Not Detected (Not Detect); Barbiturates, Urine Not Detected (Not Detect); Benzodiazepines Screen Urine Not Detected (Not Detect); Buprenorphine Scr Not Detected (Not Detect); Cannabinoid Screen Urine POSITIVE (Not Detect); Cocaine Screen Urine Not Detected (Not Detect); Fentanyl, urine POSITIVE (Not Detect); Methadone Screen, Urine Positive (Not Detect); Opiate Screen Urine POSITIVE (Not Detect); Oxycodone Screen Urine Not Detected (Not Detect); Phencyclidine Screen Urine Not Detected (Not Detect)
[2025-01-03 03:17] LABS: ~Lactic Acid-LAB USE ONLY 4.1 mmol/L (0.5-2.0)
[2025-01-03] MEDS: Lactated Ringers 1,000 ML 999 ML IV (03:24)
[2025-01-03] MEDS: Prazosin HCL 1 MG CAPSULE 2 MG PO (03:57)
[2025-01-03 05:17] LABS: Glucose, Whole Blood 215 mg/dL (60-115)
[2025-01-03] MEDS: HYDROmorphone HCl 1 MG/ML SYRINGE IVPUSH ×4 (05:35→22:38)
[2025-01-03 06:03] LABS: Influenza A PCR NEGATIVE (Negative); Influenza B PCR NEGATIVE (Negative); Resp Syncy Virus RNA Qual PCR NEGATIVE (Negative); SARS COV2 PCR INHOUSE NEGATIVE (Negative)
--- NOTE | 2025-01-03 06:22 | PC.NURSE ---
patients colostomy bag noted to be leaking. patient had large BM in bag. patient cleaned and linens changed. NG tube continues to drain.
[2025-01-03 06:27] LABS: MANUAL DIFF FLAG NO
[2025-01-03 06:39] LABS: Estimated Average Glucose 128 mg/dL; Hemoglobin A1C 151.4578 umol/L; Hemoglobin A1c % 6.1 % (<6.0); Total Hemoglobin (HGBA1C) 3480.1538 umol/L
[2025-01-03 06:46] LABS: Alanine Aminotransferase 48 U/L (0-40); Albumin Level 3.6 g/dL (3.5-5.0); Alkaline Phosphatase 125 U/L (39-117); Anion Gap 16 (12-20); Aspartate Amino Transferase 57 U/L (5-37); Bilirubin Total 0.6 mg/dL (0.0-1.0); Blood Urea Nitrogen 13 mg/dL (9-16); Calcium 8.7 mg/dL (8.4-10.2); Carbon Dioxide 16 mmol/L (22-29); Chloride 107 mmol/L (96-108); Creatinine Clr Calc Pharmacy 81.3; Estimated Glomerular Filt Rate > 60; Glucose Random 256 mg/dL (60-115); Magnesium 2.4 mg/dL (1.6-2.6); Potassium 4.6 mmol/L (3.3-5.1); Sodium 134 mmol/L (135-145)
[2025-01-03 06:59] LABS: Basophils Percent Auto 0.2 % (0-2); Hemoglobin 13.7 g/dl (14.0-18.0); Imm Gran Abs Auto 0.12 X10*3/uL (0.00-0.03); Imm Gran Pct Auto 0.8 % (0.0-0.4); Lymphocytes Absolute Auto 0.6 X10*3/uL (1.2-4.9); Lymphocytes Percent Auto 3.8 % (20-40); Mean Corpuscular HGB Conc 36.1 g/dl (31.0-36.0); Mean Corpuscular Hemoglobin 31.8 pg (27.0-33.0); Mean Corpuscular Volume 88.2 fL (80.0-98.0); Mean Platelet Volume 10.2 fL (9.4-12.4); Monocytes Absolute Auto 0.9 X10*3/uL (0.1-1.2); Monocytes Percent Auto 5.7 % (2-11); Neutrophils Absolute Auto 14.3 x10*3/uL (2.0-8.3); Neutrophils Percent Auto 89.5 % (45-73); Platelet Count 278 X10*3/uL (160-400); Red Blood Count 4.31 X10*6/uL (4.60-5.80); Red Cell Distribution Width 13.9 % (11.0-16.0); White Blood Count 15.9 X10*3/uL (4.8-10.8)
--- NOTE | 2025-01-03 07:47 | PC.NURSE ---
Patient is a 64 years old man with past medical history significant for HIV on HAARTs ([place]), hypertension, GERD and opiate dependence on methadone presents to the emergency department complaining of severe generalized abdominal pain associated with nonbloody watery diarrhea and multiple episodes of nonbloody emesis. He is a tobacco smoker. Denied alcohol abuse or illicit drug use. In the ED, he was found to have mild tachycardia and significant elevated blood pressure (max 209/95). Oxygen saturation is normal on room air. WBC count is 15.5, hemoglobin 13.2 and platelets 315. Random glucose 209. There is lactic acidosis 2.1--> 2.9. Transaminases and alk-phos are elevated. Bilirubin and lipase are normal. Urinalysis showed glucosuria, protein 1+, leukocyte esterase 1+, positive nitrate and normal WBC. Abdomen pelvis CT scan with IV contrast showed mild colonic wall thickening consistent with colitis, no bowel obstruction, no pericolic abscess and mild fluid identified within the lumen of the colon and rectum suggesting diarrhea. It also showed cholelithiasis with no evidence of acute cholecystitis. Patient alert and oriented, resting comfortably. ekg monitor maintained and NSR noted. Respirations even and non-labored. Abdomen soft with positive bowel sounds. c/o generalized abdominal pain. Positive pedal pulses with no edema.
[2025-01-03 08:17] LABS: Glucose, Whole Blood 237 mg/dL (60-115)
[2025-01-03 08:19] LABS: HBS Num1 1.85 mIU/mL (0-7.99); HBc Num1 1.75 S/CO (0.00-0.79); HBsAGNum1 0.41 S/CO (0.00-0.99); Hepatitis A Antibody IgM 0.24 Index (0-0.79); Hepatitis B Surface Antigen Negative (Negative); ~HepC Num1 1.29 S/CO (0.00-0.79); ~Hepatitis A Antibody IgM Nonreactive (Nonreactive); ~Hepatitis B Surface Antibody NONREACTIVE (Nonreactive); ~Hepatitis C Antibody Reactive (Nonreactive)
[2025-01-03] MEDS: Enoxaparin Sodium 40 MG/0.4 ML SYRINGE SUBCUT (08:37)
[2025-01-03] MEDS: Famotidine/PF 20 MG/2 ML VIAL IVPUSH (08:37)
[2025-01-03 09:11] LABS: HBc Num2 1.81 S/CO; HBc Num3 1.85 S/CO; Hepatitis B Core Antibody Reactive (Nonreactive)
--- NOTE | 2025-01-03 11:45 | PC.NURSE ---
PIV sites evaluated and ? if both are infiltrated. Removed and a new U/S guided PIV placed without difficulty.
--- NOTE | 2025-01-03 11:52 | PM.EVENT ---
Event Note Date of Service: 01/03/25 Event Note: seen and evaluated this morning reporting abdominal pain had large bowel motion with blood continue IVF and IV antibiotics stop eliquis for now repeat CBC and transfuse if needed Time Spent With Patient Time: Total time managing care of this patient today ____ minutes.
--- NOTE | 2025-01-03 12:00 | PC.NURSE ---
Patient noted to be oob to the commode and BRB noted in a moderate amount. Provider notified and repeat CBC ordered.
[2025-01-03 12:07] LABS: Hematocrit 37.3 % (42.0-52.0); Hemoglobin 13.2 g/dl (14.0-18.0); Mean Corpuscular HGB Conc 35.4 g/dl (31.0-36.0); Mean Corpuscular Hemoglobin 31.4 pg (27.0-33.0); Mean Corpuscular Volume 88.6 fL (80.0-98.0); Mean Platelet Volume 9.4 fL (9.4-12.4); Platelet Count 267 X10*3/uL (160-400); Red Blood Count 4.21 X10*6/uL (4.60-5.80); Red Cell Distribution Width 14.1 % (11.0-16.0); White Blood Count 13.6 X10*3/uL (4.8-10.8)
[2025-01-03 14:32] LABS: Glucose, Whole Blood 184 mg/dL (60-115)
--- NOTE | 2025-01-03 14:39 | PHA.MEDREC ---
Addendum entered by Bola Omer RPh 01/03/25 14:57: med rec checked by [facility] Original Note: Pharmacy Consult ? Medication Reconciliation Pharmacy has completed the medication reconciliation. Spoke with pt this Am, utilizing principle software engineer and pt was confused and not sure what he was taking for meds or when he last took them. I contacted pt family/friend Michelle and she was able to confirm most of her medications; she was not sure if the pt was still taking the Spironolactone, looking in claims that was last filled 09/26 for 90 days; I kept that on the med rec.
--- NOTE | 2025-01-03 17:35 | P.CDIM_ITS ---
PROVIDER RESPONSE TEXT: To clarify, the appropriate diagnosis supported by the clinical indicators: Acute QUERY TEXT: PHYSICIAN'S DOCUMENTATION REQUEST Date of Query: 01/03/2025 11:56 AM EDT Patient Name: Christoph Zhang Admit Date: 01/03/2025 Dear Aston Rojas MD, A review of the medical record indicates additional documentation may be needed. Please review below and update the documentation accordingly. Clinical Indicators: H&P 01/02/25 - Lactic acidosis Likely secondary to vomiting. Received NS 2 L bolus in ED, will give an additional bolus of ringer lactate. LA 2.9/4.1 Clarify which of the following accurately represents the acuity of the Lactic acidosis: Possible options might include: Acute Chronic Other (explain) Clinically unable to determine (explain) Thank you, Clarita Barrientos, CCS, CDIS Use of terms such as suspected, likely, concern for, or probable (associated with a specific diagnosis that is being evaluated, monitored, or treated as if it exists) are acceptable and can be coded in the inpatient setting, when documented at the time of discharge. Please use your independent medical judgment in providing your response. THIS QUERY IS PART OF THE PERMANENT MEDICAL RECORD
[2025-01-03 18:36] LABS: Glucose, Whole Blood 148 mg/dL (60-115)
[2025-01-03] MEDS: methADONE HCl 20 MG/2 ML ORAL.CONC PO (21:17)
[2025-01-03] MEDS: cefTRIAXone sodium 1 GM VIAL IVPUSH (21:17)
[2025-01-03] MEDS: 0.9 % Sodium Chloride Flush 3 ML SYRINGE IVFLUSH (21:22)
--- NOTE | 2025-01-03 21:46 | HE.PHANOTE ---
RE: METHADONE DOSING Last dose of methadone 85 mg was given on 12/27/24 @1136 with 7 take home doses per Kelly [address] RN at [facility] [phone]. Per nurse Keren Culver, pt said his last dose was the one received at the clinic on 12/27 due to nausea and vomiting .
[2025-01-03 22:04] LABS: Glucose, Whole Blood 158 mg/dL (60-115)
[2025-01-03] MEDS: ondansetron HCL 4 MG/2 ML VIAL IVPUSH (22:39)
[2025-01-04] VITALS (8 sets, daily range): BP systolic 175–199; BP diastolic 77–95; PULSE 97–110; RESP 16–19; TEMP 36.7–37.4; O2SAT 95–100
[2025-01-04 01:59] LABS: Glucose, Whole Blood 164 mg/dL (60-115)
[2025-01-04] MEDS: metroNIDAZOLE/NS 500 MG/100 ML PIGGYBACK 100 MG IV ×3 (02:17→18:21)
[2025-01-04] MEDS: HYDROmorphone HCl 1 MG/ML SYRINGE IVPUSH ×4 (02:18→19:57)
[2025-01-04] MEDS: Lactated Ringers 1,000 ML 125 ML IVCONT ×3 (02:18→18:21)
[2025-01-04] MEDS: amLODIPine Besylate 2.5 MG TABLET PO (03:23)
[2025-01-04] MEDS: Pantoprazole Sodium 40 MG/10 ML VIAL IVPUSH (05:23)
--- NOTE | 2025-01-04 06:28 | PC.NURSE ---
Addendum entered by Kerne Culver RN 01/04/25 07:10: BP remains elevated overnight, notified, Amlodipine 2.5mg ordered and given. BP improving however remains elevated. Original Note: Pt having nausea with vomiting of clear emesis, zofran given x1 with positive effects. GI PCR collected, notified of bowel movements being liquid colby blood. CBC ordered awaiting results.
[2025-01-04 06:48] LABS: Glucose, Whole Blood 163 mg/dL (60-115)
[2025-01-04 07:01] LABS: Basophils Percent Auto 0.2 % (0-2); Eosinophils Absolute Auto 0.3 X10*3/uL (0.0-0.4); Eosinophils Percent Auto 1.7 % (0-4); Hematocrit 39.6 % (42.0-52.0); Imm Gran Abs Auto 0.08 X10*3/uL (0.00-0.03); Imm Gran Pct Auto 0.5 % (0.0-0.4); Lymphocytes Absolute Auto 1.3 X10*3/uL (1.2-4.9); Lymphocytes Percent Auto 7.6 % (20-40); MANUAL DIFF FLAG SCAN; Mean Corpuscular HGB Conc 35.4 g/dl (31.0-36.0); Mean Corpuscular Hemoglobin 31.3 pg (27.0-33.0); Mean Corpuscular Volume 88.6 fL (80.0-98.0); Mean Platelet Volume 9.7 fL (9.4-12.4); Monocytes Absolute Auto 1.6 X10*3/uL (0.1-1.2); Monocytes Percent Auto 9.1 % (2-11); Neutrophils Absolute Auto 14.3 x10*3/uL (2.0-8.3); Neutrophils Percent Auto 80.9 % (45-73); Platelet Count 266 X10*3/uL (160-400); Red Blood Count 4.47 X10*6/uL (4.60-5.80); Red Cell Distribution Width 14.5 % (11.0-16.0); SCAN SMEAR FLAG 1; White Blood Count 17.7 X10*3/uL (4.8-10.8)
[2025-01-04 07:25] LABS: Blood Urea Nitrogen 11 mg/dL (9-16); Calcium 8.8 mg/dL (8.4-10.2); Creatinine Clr Calc Pharmacy 117.4; Estimated Glomerular Filt Rate > 60; Glucose Random 152 mg/dL (60-115)
[2025-01-04 07:32] LABS: Anion Gap 14 (12-20); Carbon Dioxide 22 mmol/L (22-29); Chloride 107 mmol/L (96-108); Potassium 3.6 mmol/L (3.3-5.1); Sodium 139 mmol/L (135-145)
[2025-01-04 07:40] LABS: SLIDE REVIEW VERIFIED
--- NOTE | 2025-01-04 08:02 | P.PNIM_ITS ---
Subjective Subjective Date of Service: 01/04/25 Interval History: Seen in follow up for colitis Interval history: Ongoing watery diarrhea with brb. 6-7/10 nonradiating lower abd pain. No personal or family history of colon cancer. No known IBD. Recently completed course of augmentin for dental infection. Seen with assistance of belarusian interpretor. Dr. Feliciano at bedside as well Physical Exam 2 Vital Signs: Vital Signs: Last Vital Signs Temp 98.6 F 01/04/25 06:54 Pulse 101 H 01/04/25 06:54 Resp 19 01/04/25 06:54 BP 199/88 H 01/04/25 06:54 Pulse Ox 98 01/04/25 06:54 O2 Del Method Room Air 01/04/25 06:54 BMI result Body Mass Index 28.6 Constitutional - Awake and Alert, No apparent distress Eyes - PERRLA, EOMI Cardiovascular - S1S2, RRR, No edema Respiratory - Normal lung expansion, Normal respiratory effort, No respiratory distress, CTA bilaterally Gastrointestinal - mild ttp. ND; +BS; No rebound or guarding Extremities - no calf tenderness bilaterally, no swelling Skin - Warm/Dry Neurological - Alert & oriented x3 Psychological - Appropriate affect Objective Data Active Medications Acetaminophen (Acetaminophen 325 Mg Tablet) 975 mg PO Q6H PRN PRN Reason: Pain, Mild 1-3,fever,headache Ceftriaxone Sodium (Ceftriaxone Sodium 1 Gm Vial) 1 gm IVPUSH Q24H [facility] Last Admin: 01/03/25 21:17 Dose: 1 gm Documented By: QUAN Enoxaparin Sodium (Enoxaparin Sodium 40 Mg/0.4 Ml Syringe) 40 mg SUBCUT Q24H [facility] On Hold: 01/03/25 11:52 Last Admin: 01/03/25 08:37 Dose: 40 mg Documented By: MARCUSRPCASSANDRA Famotidine (Famotidine/Pf 20 Mg/2 Ml Vial) 20 mg IVPUSH DAILY [facility] Last Admin: 01/03/25 08:37 Dose: 20 mg Documented By: MARCUSRPCASSANDRA Hydromorphone HCl (Hydromorphone Hcl 1 Mg/Ml Syringe) 1 mg IVPUSH Q3H PRN; Protocol PRN Reason: Pain, Severe (Pain Scale 7-10) Last Admin: 01/04/25 05:23 Dose: 1 mg Documented By: QUAN Lactated Ringer's (Lr) 1,000 mls @ 125 mls/hr IVCONT .Q8H [facility] Last Admin: 01/04/25 02:18 Dose: 125 mls/hr Documented By: QUAN Metronidazole (Flagyl) 500 mg in 100 mls @ 100 mls/hr IV Q8H [facility] Last Infusion: 01/04/25 03:17 Dose: Infused Documented By: QUAN Pantoprazole Sodium (Pantoprazole Sodium 40 Mg/10 Ml Vial) 40 mg IVPUSH DAILY@0630 [facility] Last Admin: 01/04/25 05:23 Dose: 40 mg Documented By: QUAN Sodium Chloride (0.9 % Sodium Chloride Flush 3 Ml Syringe) 3 ml IVFLUSH QSHIFT [facility] Last Admin: 01/03/25 21:22 Dose: 3 ml Documented By: QUAN Labs 01/04/25 06:44 01/04/25 06:44 Labs: Laboratory Results - last 24 hr 01/03/25 01/03/25 01/03/25 06:21 08:13 12:03 MCV 88.6 MCH 31.4 MCHC 35.4 RDW 14.1 Plt Count 267 MPV 9.4 Immature Gran % (Auto) Neut % (Auto) Lymph % (Auto) Dolores % (Auto) Eos % (Auto) Baso % (Auto) Lymph # (Auto) Dolores # (Auto) Eos # (Auto) Baso # (Auto) Abs Immat Gran (auto) Absolute Neuts (auto) Absolute Nucleated RBC 0.000 Nucleated RBC % (auto) 0.0 Smear Tech's Comments Anion Gap Estim Creat Clear Calc Estimated GFR POC Glucose 237 H Random Glucose Calcium Hepatitis A IgM Ab Nonreactive Hep Bs Antigen Negative Hep Bs Antibody NONREACTIVE Hep B Core Total Ab Reactive Hepatitis C Ab (EIA) Reactive H 01/03/25 01/03/25 01/03/25 14:28 18:30 22:00 MCV MCH MCHC RDW Plt Count MPV Immature Gran % (Auto) Neut % (Auto) Lymph % (Auto) Dolores % (Auto) Eos % (Auto) Baso % (Auto) Lymph # (Auto) Dolores # (Auto) Eos # (Auto) Baso # (Auto) Abs Immat Gran (auto) Absolute Neuts (auto) Absolute Nucleated RBC Nucleated RBC % (auto) Smear Tech's Comments Anion Gap Estim Creat Clear Calc Estimated GFR POC Glucose 184 H 148 H 158 H Random Glucose Calcium Hepatitis A IgM Ab Hep Bs Antigen Hep Bs Antibody Hep B Core Total Ab Hepatitis C Ab (EIA) 01/04/25 01/04/25 01:55 06:44 MCV 88.6 MCH 31.3 MCHC 35.4 RDW 14.5 Plt Count 266 MPV 9.7 Immature Gran % (Auto) 0.5 H Neut % (Auto) 80.9 H Lymph % (Auto) 7.6 L Dolores % (Auto) 9.1 Eos % (Auto) 1.7 Baso % (Auto) 0.2 Lymph # (Auto) 1.3 Dolores # (Auto) 1.6 H Eos # (Auto) 0.3 Baso # (Auto) 0.0 Abs Immat Gran (auto) 0.08 H Absolute Neuts (auto) 14.3 H Absolute Nucleated RBC 0.000 Nucleated RBC % (auto) 0.0 Smear Tech's Comments VERIFIED Anion Gap 14 Estim Creat Clear Calc 117.4 Estimated GFR > 60 POC Glucose 164 H 163 H Random Glucose 152 H Calcium 8.8 Hepatitis A IgM Ab Hep Bs Antigen Hep Bs Antibody Hep B Core Total Ab Hepatitis C Ab (EIA) Microbiology Microbiology Results: Microbiology 01/02/25 22:46 Blood Culture - Preliminary Blood - Venous No growth after 24 hours. 01/02/25 22:46 Blood Culture - Preliminary Blood - Venous No growth after 24 hours. 01/02/25 21:53 Urine Culture - Preliminary Urine clean catch - Clean Catch Midstream Culture too young to evaluate. Assessment and Plan (1) Acute colitis: Status: Acute Plan 64 year old male with history of HIV compliant with HAART, gerd, OUD on methadone, htn admitted for acute colitis Acute colitis No acute anemia Continue ctx and flagyl (initiated 01/03) Gi panel negative. O/P and cdiff pending Per GI, consider colonscopy monday pending clinical improvement, otherwise outpt follow up Advance to clear liquids, continue IV fluids for now Continue IV Pepcid for now, changed to p.o. once tolerating p.o. more Pain management prn antiemetics prn follow lytes Acute lactic acidosis due to volume depletion, not sepsis Uncontrolled hypertension Add amlodipine 10 mg daily Acute hyperglycemia Possibly related to dehydration Hemoglobin A1c 6.1% Monitor POC GERD PPI HAART HIV Last viral load undetectable Continue OUD continue methadone DVT ppx: SCPs Full code Ongoing inpt stay: copious bloody diarrhea d/t colitis requiring iv abx Quality Stroke Does the patient have a stroke diagnosis?: No VTE Prior VTE?: No VTE Risk Level:: Medical - moderate - high VTE Device Contraindication: Treatment Not Indicated VTE Drug Contraindication: N/A - Med Ordered
[2025-01-04] MEDS: Famotidine/PF 20 MG/2 ML VIAL IVPUSH (09:05)
[2025-01-04] MEDS: Spironolactone 25 MG TABLET 50 MG PO (09:05)
[2025-01-04 09:30] LABS: Adenovirus F 40/41 Not Detected (Not Detect.); Astrovirus Not Detected (Not Detect.); Campylobacter Not Detected (Not Detect.); Cryptosporidium Not Detected (Not Detect.); Cyclospora cayetanensis Not Detected (Not Detect.); E. coli EAEC Not Detected (Not Detect.); E. coli EPEC Not Detected (Not Detect.); E. coli ETEC Not Detected (Not Detect.); E. coli STEC Not Detected (Not Detect.); Entamoeba histolytica Not Detected (Not Detect.); Giardia lamblia Not Detected (Not Detect.); Norovirus GI/GII Not Detected (Not Detect.); Plesiomonas shigelloides Not Detected (Not Detect.); Rotavirus A Not Detected (Not Detect.); Salmonella Not Detected (Not Detect.); Sapovirus Not Detected (Not Detect.); Shigella sp./EIEC Not Detected (Not Detect.); Vibrio Not Detected (Not Detect.); Vibrio Cholerae Not Detected (Not Detect.); Yersinia enterocolitica Not Detected (Not Detect.)
[2025-01-04 10:19] LABS: Glucose, Whole Blood 151 mg/dL (60-115)
[2025-01-04] MEDS: Emtricitabine/Tenofov Alafenam TABLET 1 TAB PO (10:23)
[2025-01-04] MEDS: Rilpivirine HCL 25 MG TABLET PO (10:23)
[2025-01-04] MEDS: Aspirin Enteric Coated 325 MG TABLET.DR PO (10:23)
[2025-01-04] MEDS: methADONE HCl 20 MG/2 ML ORAL.CONC 85 MG PO (11:13)
[2025-01-04 11:59] LABS: Hepatitis B Core Antibody IgM NON-REACTIVE (NON-REACTIVE)
--- NOTE | 2025-01-04 12:14 | CONS_ITS ---
DATE OF SERVICE: 01/04/2025 REFERRING PHYSICIAN: Dr. Beltran REASON FOR CONSULTATION: Rectal bleeding and colitis. HISTORY OF PRESENT ILLNESS: The patient is a pleasant 64-year-old man who was admitted to the hospital after presenting to the emergency room with complaints of abdominal pain, diarrhea, and nausea and vomiting. Symptoms started the day before admission and continued, so he presented to the emergency room. He was evaluated and underwent imaging studies, which showed changes consistent with colitis on the CAT scan report. This was reviewed in detail. He was admitted to the hospital and overnight has had some bloody stools. Hematocrit on admission was 38 and this morning was 39.6 and has remained stable. Stool testing has been obtained and his GI panel has been negative. The remainder is still pending. He does report some recent antibiotic usage for dental extractions, was unsure of the name of the medication. PAST MEDICAL HISTORY: 1. HIV infection with compliance with anti-retroviral therapy. 2. Hypertension. 3. Gastroesophageal reflux disease. 4. Opiate dependence. 5. Prostate cancer. CURRENT MEDICATIONS: List is reviewed in the chart. ALLERGIES: THERE ARE NONE REPORTED. FAMILY HISTORY: This is reviewed with the patient and is noncontributory. SOCIAL HISTORY: There is no current substance abuse by his report. REVIEW OF SYSTEMS: SKIN: No pruritus. HEENT: Negative. CARDIOPULMONARY: No shortness of breath or chest pain. GASTROINTESTINAL: As above. GENITOURINARY: Negative. NEUROPSYCHIATRIC: Negative. PHYSICAL EXAMINATION: GENERAL: Shows a pleasant male, lying comfortably in bed. VITAL SIGNS: Reviewed in the electronic medical record and are stable. SKIN: Anicteric. HEENT: Shows no scleral icterus. NECK: Without lymphadenopathy or thyromegaly. LUNGS: Clear. HEART: Shows regular rate and rhythm. S1, S2. No murmur. ABDOMEN: Soft without focal masses. There is some mild tenderness to palpation over both lower quadrants. Bowel sounds are present. No organomegaly is noted. EXTREMITIES: Without edema. LABORATORY DATA AND IMAGING STUDIES: Reviewed. IMPRESSION: Colitis. This appears consistent with acute colitis. The differential diagnosis includes infectious, both viral and bacterial, ischemic and antibiotic associated. Acute presentation of Crohn's disease and/or ulcerative colitis was thought to be less likely. I agree with treating with antibiotics and awaiting final stool specimens. If he has no improvement, he may need limited lower GI tract endoscopy for further diagnosis. I agree with monitoring his hematocrit. At some point, he should be evaluated with a complete colonoscopy and this can be arranged as an outpatient through [facility] where he is established. Thanks for asking me to see him. I will follow him in the hospital with you. MD KIM Hubbard/JUDY / [phone]
--- NOTE | 2025-01-04 13:17 | MHC.CM.PN ---
Pt lives with family, he does not have home health services. PCP confirmed: Name, HCP on file and confirmed: Michelle. For DME, pt uses a cane. Pt. gets Methadone from [facility]. Family to transport home at DC , DCP: home, self care. CM to follow for DC needs.
[2025-01-04 13:29] LABS: CDiff Gene PCR NEGATIVE (Negative)
[2025-01-04] MEDS: amLODIPine Besylate 10 MG TABLET PO (13:39)
[2025-01-04 14:23] LABS: Glucose, Whole Blood 154 mg/dL (60-115)
[2025-01-04 18:18] LABS: Glucose, Whole Blood 148 mg/dL (60-115)
[2025-01-04] MEDS: Docusate Sodium 100 MG CAPSULE PO (19:56)
[2025-01-04] MEDS: QUEtiapine Fumarate 400 MG TABLET PO (19:56)
[2025-01-04] MEDS: Sennosides 8.6 MG TABLET PO (19:57)
[2025-01-04] MEDS: Prazosin HCL 1 MG CAPSULE 2 MG PO (19:57)
[2025-01-04 22:36] LABS: Glucose, Whole Blood 147 mg/dL (60-115)
[2025-01-04] MEDS: cefTRIAXone sodium 1 GM VIAL IVPUSH (23:20)
[2025-01-04] MEDS: 0.9 % Sodium Chloride Flush 3 ML SYRINGE IVFLUSH (23:23)
[2025-01-05] VITALS: BP 130/60; PULSE 124; RESP 16; TEMP 36.8; O2SAT 100
[2025-01-05 02:04] LABS: Glucose, Whole Blood 98 mg/dL (60-115)
[2025-01-05] MEDS: metroNIDAZOLE/NS 500 MG/100 ML PIGGYBACK 100 MG IV ×2 (02:24→10:37)
[2025-01-05] MEDS: Lactated Ringers 1,000 ML 125 ML IVCONT (02:24)
[2025-01-05 04:00] VITALS: BP 104/59; PULSE 117; RESP 16; TEMP 36.5; O2SAT 96
[2025-01-05 05:46] LABS: MANUAL DIFF FLAG NO
[2025-01-05 05:49] LABS: Basophils Percent Auto 0.3 % (0-2); Eosinophils Percent Auto 0.4 % (0-4); Hematocrit 34.4 % (42.0-52.0); Hemoglobin 12.2 g/dl (14.0-18.0); Imm Gran Abs Auto 0.07 X10*3/uL (0.00-0.03); Imm Gran Pct Auto 0.7 % (0.0-0.4); Lymphocytes Percent Auto 18.6 % (20-40); Mean Corpuscular HGB Conc 35.5 g/dl (31.0-36.0); Mean Corpuscular Hemoglobin 31.9 pg (27.0-33.0); Mean Corpuscular Volume 89.8 fL (80.0-98.0); Mean Platelet Volume 9.4 fL (9.4-12.4); Monocytes Absolute Auto 0.9 X10*3/uL (0.1-1.2); Neutrophils Absolute Auto 7.6 x10*3/uL (2.0-8.3); Platelet Count 209 X10*3/uL (160-400); Red Blood Count 3.83 X10*6/uL (4.60-5.80); Red Cell Distribution Width 14.6 % (11.0-16.0); White Blood Count 10.6 X10*3/uL (4.8-10.8)
[2025-01-05 06:03] LABS: Glucose, Whole Blood 117 mg/dL (60-115)
[2025-01-05 06:04] LABS: Anion Gap 10 (12-20); Blood Urea Nitrogen 8 mg/dL (9-16); Calcium 8.3 mg/dL (8.4-10.2); Carbon Dioxide 25 mmol/L (22-29); Chloride 110 mmol/L (96-108); Creatinine Clr Calc Pharmacy 96.6; Estimated Glomerular Filt Rate > 60; Glucose Random 116 mg/dL (60-115); Potassium 3.2 mmol/L (3.3-5.1); Sodium 142 mmol/L (135-145)
[2025-01-05 07:01] VITALS: BP 135/66; PULSE 102; RESP 18; TEMP 36.6; O2SAT 96
--- NOTE | 2025-01-05 07:25 | P.PNIM_ITS ---
Subjective Subjective Date of Service: 01/05/25 Physical Exam 2 Vital Signs: Vital Signs: Last Vital Signs Temp 97.9 F 01/05/25 07:01 Pulse 102 H 01/05/25 07:01 Resp 18 01/05/25 07:01 BP 135/66 01/05/25 07:01 Pulse Ox 96 01/05/25 07:01 O2 Del Method Room Air 01/05/25 07:01 BMI result Body Mass Index 28.6 Objective Data Active Medications Acetaminophen (Acetaminophen 325 Mg Tablet) 975 mg PO Q6H PRN PRN Reason: Pain, Mild 1-3,fever,headache Amlodipine Besylate (Amlodipine Besylate 10 Mg Tablet) 10 mg PO DAILY [facility]; Protocol Last Admin: 01/04/25 13:39 Dose: 10 mg Documented By: KWAKU Aspirin (Aspirin Enteric Coated 325 Mg Tablet.) 325 mg PO DAILY [facility] Last Admin: 01/04/25 10:23 Dose: 325 mg Documented By: KWAKU Ceftriaxone Sodium (Ceftriaxone Sodium 1 Gm Vial) 1 gm IVPUSH Q24H [facility] Last Admin: 01/04/25 23:20 Dose: 1 gm Documented By: QUAN Docusate Sodium (Docusate Sodium 100 Mg Capsule) 100 mg PO BID [facility] Last Admin: 01/04/25 19:56 Dose: 100 mg Documented By: QUAN Emtricitabine/Tenofovir Alafenamide (Emtricitabine/Tenofov Alafenam Tablet) 1 tab PO DAILY [facility] Last Admin: 01/04/25 10:23 Dose: 1 tab Documented By: KWAKU Enoxaparin Sodium (Enoxaparin Sodium 40 Mg/0.4 Ml Syringe) 40 mg SUBCUT Q24H [facility] On Hold: 01/03/25 11:52 Last Admin: 01/03/25 08:37 Dose: 40 mg Documented By: SCIRPOS Famotidine (Famotidine/Pf 20 Mg/2 Ml Vial) 20 mg IVPUSH DAILY [facility] Last Admin: 01/04/25 09:05 Dose: 20 mg Documented By: KWAKU Hydromorphone HCl (Hydromorphone Hcl 1 Mg/Ml Syringe) 1 mg IVPUSH Q3H PRN; Protocol PRN Reason: Pain, Severe (Pain Scale 7-10) Last Admin: 01/04/25 19:57 Dose: 1 mg Documented By: QUAN Metronidazole (Flagyl) 500 mg in 100 mls @ 100 mls/hr IV Q8H [facility] Last Infusion: 01/05/25 03:24 Dose: Infused Documented By: QUAN Methadone HCl (Methadone Hcl 20 Mg/2 Ml Oral.Conc) 85 mg PO DAILY@0800 [facility] Last Admin: 01/04/25 11:13 Dose: 85 mg Documented By: KWAKU Co-signed By: PERLA Ondansetron HCl (Ondansetron Odt 4 Mg Tab.Rapdis) 4 mg TRANSLINGU Q6H PRN PRN Reason: Nausea and Vomiting Prazosin HCl (Prazosin Hcl 1 Mg Capsule) 2 mg PO BEDTIME [facility]; Protocol Last Admin: 01/04/25 19:57 Dose: 2 mg Documented By: QUAN Quetiapine Fumarate (Quetiapine Fumarate 400 Mg Tablet) 400 mg PO BEDTIME [facility] Last Admin: 01/04/25 19:56 Dose: 400 mg Documented By: QUAN Rilpivirine (Rilpivirine Hcl 25 Mg Tablet) 25 mg PO DAILY [facility] Last Admin: 01/04/25 10:23 Dose: 25 mg Documented By: KWAKU Senna (Sennosides 8.6 Mg Tablet) 8.6 mg PO BEDTIME [facility] Last Admin: 01/04/25 19:57 Dose: 8.6 mg Documented By: QUAN Sodium Chloride (0.9 % Sodium Chloride Flush 3 Ml Syringe) 3 ml IVFLUSH QSHIFT [facility] Last Admin: 01/04/25 23:23 Dose: 3 ml Documented By: QUAN Spironolactone (Spironolactone 25 Mg Tablet) 50 mg PO DAILY [facility]; Protocol Last Admin: 01/04/25 09:05 Dose: 50 mg Documented By: KWAKU Labs 01/05/25 05:25 01/05/25 05:25 Labs: Laboratory Results - last 24 hr 01/03/25 01/04/25 01/04/25 06:21 04:43 06:44 MCV 88.6 MCH 31.3 MCHC 35.4 RDW 14.5 Plt Count 266 MPV 9.7 Immature Gran % (Auto) 0.5 H Neut % (Auto) 80.9 H Lymph % (Auto) 7.6 L Kendall % (Auto) 9.1 Eos % (Auto) 1.7 Baso % (Auto) 0.2 Lymph # (Auto) 1.3 Kendall # (Auto) 1.6 H Eos # (Auto) 0.3 Baso # (Auto) 0.0 Abs Immat Gran (auto) 0.08 H Absolute Neuts (auto) 14.3 H Absolute Nucleated RBC 0.000 Nucleated RBC % (auto) 0.0 Smear Tech's Comments VERIFIED Anion Gap 14 Estim Creat Clear Calc 117.4 Estimated GFR > 60 POC Glucose Random Glucose 152 H Calcium 8.8 Stl C. cayetanensis PCR Not Detected Stool Rotavirus A PCR Not Detected Stl Adenov F PCR Not Detected Stool Astrovirus (PCR) Not Detected Stool Campylobacter PCR Not Detected Stool Cryptosporidium PCR Not Detected Stl Sh Tox Pr E STEC PCR Not Detected Stool E coli O157 PCR Not applicable Stl Enterotoxigenic E PCR Not Detected Stool EPEC (PCR) Not Detected Stool EAEC (PCR) Not Detected Stl E. histolytica PCR Not Detected Stool Giardia Lamblia PCR Not Detected Stl P. shigelloides PCR Not Detected Stool Salmonella PCR Not Detected Stool Sapovirus (PCR) Not Detected Stl Shigella/EIEC PCR Not Detected St Y.enterocolitica PCR Not Detected Stool Vibrio (PCR) Not Detected Stl Vibrio cholerae PCR Not Detected Stl Norovirus GI/GII PCR Not Detected C. difficile Tox B Gene Hep B Core IgM Ab NON-REACTIVE 01/04/25 01/04/25 01/04/25 10:14 11:32 14:19 MCV MCH MCHC RDW Plt Count MPV Immature Gran % (Auto) Neut % (Auto) Lymph % (Auto) Kendall % (Auto) Eos % (Auto) Baso % (Auto) Lymph # (Auto) Kendall # (Auto) Eos # (Auto) Baso # (Auto) Abs Immat Gran (auto) Absolute Neuts (auto) Absolute Nucleated RBC Nucleated RBC % (auto) Smear Tech's Comments Anion Gap Estim Creat Clear Calc Estimated GFR POC Glucose 151 H 154 H Random Glucose Calcium Stl C. cayetanensis PCR Stool Rotavirus A PCR Stl Adenov F PCR Stool Astrovirus (PCR) Stool Campylobacter PCR Stool Cryptosporidium PCR Stl Sh Tox Pr E STEC PCR Stool E coli O157 PCR Stl Enterotoxigenic E PCR Stool EPEC (PCR) Stool EAEC (PCR) Stl E. histolytica PCR Stool Giardia Lamblia PCR Stl P. shigelloides PCR Stool Salmonella PCR Stool Sapovirus (PCR) Stl Shigella/EIEC PCR St Y.enterocolitica PCR Stool Vibrio (PCR) Stl Vibrio cholerae PCR Stl Norovirus GI/GII PCR C. difficile Tox B Gene NEGATIVE Hep B Core IgM Ab 01/04/25 01/04/25 01/05/25 18:13 22:32 01:59 MCV MCH MCHC RDW Plt Count MPV Immature Gran % (Auto) Neut % (Auto) Lymph % (Auto) Kendall % (Auto) Eos % (Auto) Baso % (Auto) Lymph # (Auto) Kendall # (Auto) Eos # (Auto) Baso # (Auto) Abs Immat Gran (auto) Absolute Neuts (auto) Absolute Nucleated RBC Nucleated RBC % (auto) Smear Tech's Comments Anion Gap Estim Creat Clear Calc Estimated GFR POC Glucose 148 H 147 H 98 Random Glucose Calcium Stl C. cayetanensis PCR Stool Rotavirus A PCR Stl Adenov F 40/41 PCR Stool Astrovirus (PCR) Stool Campylobacter PCR Stool Cryptosporidium PCR Stl Sh Tox Pr E STEC PCR Stool E coli O157 PCR Stl Enterotoxigenic E PCR Stool EPEC (PCR) Stool EAEC (PCR) Stl E. histolytica PCR Stool Giardia Lamblia PCR Stl P. shigelloides PCR Stool Salmonella PCR Stool Sapovirus (PCR) Stl Shigella/EIEC PCR St Y.enterocolitica PCR Stool Vibrio (PCR) Stl Vibrio cholerae PCR Stl Norovirus GI/GII PCR C. difficile Tox B Gene Hep B Core IgM Ab 01/05/25 01/05/25 05:25 05:59 MCV 89.8 MCH 31.9 MCHC 35.5 RDW 14.6 Plt Count 209 MPV 9.4 Immature Gran % (Auto) 0.7 H Neut % (Auto) 72.0 Lymph % (Auto) 18.6 L Kendall % (Auto) 8.0 Eos % (Auto) 0.4 Baso % (Auto) 0.3 Lymph # (Auto) 2.0 Kendall # (Auto) 0.9 Eos # (Auto) 0.0 Baso # (Auto) 0.0 Abs Immat Gran (auto) 0.07 H Absolute Neuts (auto) 7.6 Absolute Nucleated RBC 0.000 Nucleated RBC % (auto) 0.0 Smear Tech's Comments Anion Gap 10 L Estim Creat Clear Calc 96.6 Estimated GFR > 60 POC Glucose 117 H Random Glucose 116 H Calcium 8.3 L Stl C. cayetanensis PCR Stool Rotavirus A PCR Stl Adenov F 40/41 PCR Stool Astrovirus (PCR) Stool Campylobacter PCR Stool Cryptosporidium PCR Stl Sh Tox Pr E STEC PCR Stool E coli O157 PCR Stl Enterotoxigenic E PCR Stool EPEC (PCR) Stool EAEC (PCR) Stl E. histolytica PCR Stool Giardia Lamblia PCR Stl P. shigelloides PCR Stool Salmonella PCR Stool Sapovirus (PCR) Stl Shigella/EIEC PCR St Y.enterocolitica PCR Stool Vibrio (PCR) Stl Vibrio cholerae PCR Stl Norovirus GI/GII PCR C. difficile Tox B Gene Hep B Core IgM Ab Microbiology Microbiology Results: Microbiology 01/02/25 22:46 Blood Culture - Preliminary Blood - Venous No growth after 48 hours. 01/02/25 22:46 Blood Culture - Preliminary Blood - Venous No growth after 48 hours. 01/02/25 21:53 Urine Culture - Final Urine clean catch - Clean Catch Midstream Quality Stroke Does the patient have a stroke diagnosis?: No VTE Prior VTE?: No VTE Risk Level:: Medical - moderate - high VTE Device Contraindication: Treatment Not Indicated VTE Drug Contraindication: N/A - Med Ordered
[2025-01-05] MEDS: Spironolactone 25 MG TABLET 50 MG PO (08:44)
[2025-01-05] MEDS: Potassium Chloride Packet 20 MEQ PACKET 40 MEQ PO (08:45)
[2025-01-05] MEDS: Aspirin Enteric Coated 325 MG TABLET.DR PO (08:45)
[2025-01-05] MEDS: Rilpivirine HCL 25 MG TABLET PO (08:45)
[2025-01-05] MEDS: Emtricitabine/Tenofov Alafenam TABLET 1 TAB PO (08:45)
[2025-01-05] MEDS: methADONE HCl 20 MG/2 ML ORAL.CONC 85 MG PO (08:46)
[2025-01-05] MEDS: amLODIPine Besylate 10 MG TABLET PO (08:46)
[2025-01-05] MEDS: 0.9 % Sodium Chloride Flush 3 ML SYRINGE IVFLUSH (08:46)
[2025-01-05] MEDS: Famotidine/PF 20 MG/2 ML VIAL IVPUSH (08:47)
[2025-01-05 10:13] LABS: Glucose, Whole Blood 155 mg/dL (60-115)
[2025-01-05 11:17] VITALS: BP 132/70; PULSE 86; RESP 17; TEMP 36.2; O2SAT 98
--- NOTE | 2025-01-05 12:18 | P.DS_ITS ---
DS: Providers Provider Date of Service: 01/05/25 Date of admission: 01/03/25 01:59 Date of discharge: 01/05/25 Primary care physician: Unknown Physician Attending physician on admission: Jeff Mcdonald Consults: 01/03/25 19:46 Addiction Medicine Provider Routine Consulting Provider: Addiction Covering Reason for consultation: opiate dependence 01/04/25 04:55 Consult to Gastroenterology Routine Consulting Provider: Rubio Feliciano Reason for consultation: BRBPR 01/04/25 08:45 Addiction Medicine Provider Routine Consulting Provider: Addiction Covering Reason for consultation: OUD on methadone- not compliant? Attending physician on discharge: Fabian Cerna Discharging clinician: Patricia Schumacher DS: Diagnosis Discharge Diagnosis (1) Acute colitis: Status: Acute DS: Summary Hospital Course Hospital Course: HPI on admission by Dr Yan Mcdonald 01/03: Chief Complaint: Abdominal pain, vomiting and diarrhea Christoph Tang is a 64 years old man with past medical history significant for HIV on HAARTs ([facility]), hypertension, GERD and opiate dependence on methadone presents to the emergency department complaining of severe generalized abdominal pain associated with nonbloody watery diarrhea and multiple episodes of nonbloody emesis. The symptoms started yesterday around 14:00. He took his methadone yesterday. Patient denied recent use of antibiotics, travel history or contact with sick people. According to patient's significant other patient became very sweaty. No fever or chills.. Denied headache, chest pain, shortness or breath or palpitations. He also denied any acute urinary symptoms. He is a tobacco smoker. Denied alcohol abuse or illicit drug use. In the ED, he was found to have mild tachycardia and significant elevated blood pressure (max 209/95). Oxygen saturation is normal on room air. WBC count is 15.5, hemoglobin 13.2 and platelets 315. There are no significant electrolyte imbalances. Random glucose 209. There is lactic acidosis 2.1--> 2.9. Transaminases and alk-phos are elevated. Bilirubin and lipase are normal. Urinalysis showed glucosuria, protein 1+, leukocyte esterase 1+, positive nitrate and normal WBC. Abdomen pelvis CT scan with IV contrast showed mild colonic wall thickening consistent with colitis, no bowel obstruction, no pericolic abscess and mild fluid identified within the lumen of the colon and rectum suggesting diarrhea. It also showed cholelithiasis with no evidence of acute cholecystitis. ED tx: NS 2 L bolus, morphine 8 mg IV Toradol, methadone 4 mg p.o., ceftriaxone 1 g IV, ketorolac 30 mg IV, Zofran 4 mg IV. Hospital course: 64 year old male with history of HIV on HAART, htn, OUD admitted [facility] due to acute colitis. He was treated empirically with IV ceftriaxone and Flagyl. Patient did recently complete course of Augmentin. C diff PCR negative. GI panel negative. Ova parasite panel remains pending. Diet was successfully advanced and symptoms had fully resolved. No ongoing hematochezia. Blood counts remained stable throughout admission, no transfusion was required. He did initially have lactic acidosis which resolved with IV fluids, likely hypoperfusion from hypovolemia. Overall, electrolyte levels stable though did have a mild hypokalemia of 3.2 on day of discharge. Given a 1 time dose of potassium chloride. Glucose levels throughout admission stable, initial hyperglycemia likely due to dehydration. Hemoglobin A1c checked and was 6.1%, consistent with prediabetes. LFTs elevated but stable. Has history of hepatitis-C with most recent viral load undetectable. Follows with Infectious Disease for management of his HIV with most recent viral load undetectable as well, repeat levels pending. He will continue on HAART therapy and follow up with ID as scheduled. He should continue on spironolactone for management of his hypertension with stable blood pressures during admission. Continue quetiapine, prazosin for mood disorder. Continue methadone for opiate use disorder. He will be discharged with ceftin 500 mg twice daily and metronidazole 500 mg every 8 hours x7 days. Seen and evaluated by Gastroenterology recommending outpatient follow-up given clinical improvement as he is also overdue for colon cancer screening. Time spent discussing smoking cessation with patient: 3 to 10 minutes Status at Discharge Functional status at discharge: independent ambulation Overall status at discharge: patient is progressing back to baseline Time Attestation Discharge Coordination Time (in mins): 40 Quality: Safe Use of Opioids Does Pt have an Active Cancer Diagnosis on the Problem List?: No Quality: Stroke Does the patient have a stroke diagnosis?: No Physical Exam Vital Signs: Vital Signs: Last Vital Signs Temp 97.1 F 01/05/25 11:17 Pulse 86 01/05/25 11:17 Resp 17 01/05/25 11:17 BP 132/70 01/05/25 11:17 Pulse Ox 98 01/05/25 11:17 O2 Del Method Room Air 01/05/25 11:17 BMI result Body Mass Index 28.6 DS: Data Data Completed and Pending Labs on day of discharge: Laboratory Results - last 24 hr 01/04/25 01/04/25 01/04/25 11:32 14:19 18:13 WBC RBC Hgb Hct MCV MCH MCHC RDW Plt Count MPV Immature Gran % (Auto) Neut % (Auto) Lymph % (Auto) [place] % (Auto) Eos % (Auto) Baso % (Auto) Lymph # (Auto) [place] # (Auto) Eos # (Auto) Baso # (Auto) Abs Immat Gran (auto) Absolute Neuts (auto) Absolute Nucleated RBC Nucleated RBC % (auto) Sodium Potassium Chloride Carbon Dioxide Anion Gap BUN Creatinine Estim Creat Clear Calc Estimated GFR POC Glucose 154 H 148 H Random Glucose Calcium C. difficile Tox B Gene NEGATIVE 01/04/25 01/05/25 01/05/25 22:32 01:59 05:25 WBC 10.6 RBC 3.83 L Hgb 12.2 L Hct 34.4 L MCV 89.8 MCH 31.9 MCHC 35.5 RDW 14.6 Plt Count 209 MPV 9.4 Immature Gran % (Auto) 0.7 H Neut % (Auto) 72.0 Lymph % (Auto) 18.6 L [place] % (Auto) 8.0 Eos % (Auto) 0.4 Baso % (Auto) 0.3 Lymph # (Auto) 2.0 [place] # (Auto) 0.9 Eos # (Auto) 0.0 Baso # (Auto) 0.0 Abs Immat Gran (auto) 0.07 H Absolute Neuts (auto) 7.6 Absolute Nucleated RBC 0.000 Nucleated RBC % (auto) 0.0 Sodium 142 Potassium 3.2 L Chloride 110 H Carbon Dioxide 25 Anion Gap 10 L BUN 8 L Creatinine 0.79 Estim Creat Clear Calc 96.6 Estimated GFR > 60 POC Glucose 147 H 98 Random Glucose 116 H Calcium 8.3 L C. difficile Tox B Gene 01/05/25 01/05/25 05:59 10:09 WBC RBC Hgb Hct MCV MCH MCHC RDW Plt Count MPV Immature Gran % (Auto) Neut % (Auto) Lymph % (Auto) [place] % (Auto) Eos % (Auto) Baso % (Auto) Lymph # (Auto) [place] # (Auto) Eos # (Auto) Baso # (Auto) Abs Immat Gran (auto) Absolute Neuts (auto) Absolute Nucleated RBC Nucleated RBC % (auto) Sodium Potassium Chloride Carbon Dioxide Anion Gap BUN Creatinine Estim Creat Clear Calc Estimated GFR POC Glucose 117 H 155 H Random Glucose Calcium C. difficile Tox B Gene Preliminary micro results at discharge 01/02/25 22:46 Blood Culture - Preliminary Blood - Venous No growth after 48 hours. 01/02/25 22:46 Blood Culture - Preliminary Blood - Venous No growth after 48 hours. Discharge Plan Discharge Anticipated Discharge Date/Time: 01/05/25 12:29 Patient Disposition: Home, Self-Care Discharge Diagnosis: acute colitis Referrals: Physician,Unknown J [Primary Care Provider, Medical] - 1 Week Discharge Medications: New cefuroxime axetil 500 mg tablet 500 mg PO BID Qty: 14 0RF metronidazole 500 mg tablet 500 mg PO Q8H Qty: 21 0RF Continued aspirin 325 mg tablet,delayed release (DR/EC) 325 mg PO DAILY docusate sodium 100 mg capsule 100 mg PO BID Odefsey 200-25-25 mg tablet 1 tab PO DAILY ondansetron 4 mg tablet,disintegrating 4 mg PO Q6H PRN (Reason: nausea and vomiting) senna 8.6 mg capsule 8.6 mg PO BEDTIME sildenafil [Viagra] 100 mg tablet 100 mg PO DAILY PRN (Reason: Erectile Dysfunction) prazosin 2 mg capsule 2 mg PO DAILY quetiapine [Seroquel] 400 mg tablet 400 mg PO BEDTIME methadone 10 mg/5 mL solution 85 mg PO DAILY spironolactone 50 mg tablet 50 mg PO DAILY famotidine 40 mg tablet 40 mg PO DAILY Qty: 90 2RF Discharge Orders: Discharge Order (Routine); Ordered 01/05/25 Ordered By: Patricia Schumacher Diet: Advance to usual diet Activity on Discharge: As tolerated Stand Alone Forms: Patient Portal Discharge page Print Language: Arabic Care Plan Goals: Take antibiotics as prescribed Follow-up with gastroenterology Continue following with Infectious Disease Health Concerns: Acute colitis HIV Plan of Treatment: Take cefuroxime 500 mg twice daily x7 days as well as metronidazole 500 mg every 8 hours x7 days. Recommend bland diet, advance as tolerated Follow-up with gastroenterology Assessment: See above, see discharge summary
--- NOTE | 2025-01-05 12:48 | MHC.CM.PN ---
Pt has been medically cleared for DC, he will go home via family transport, plan is self care.
[2025-01-05 23:09] LABS: HIV RNA PCR Qn Copies NOT DETECTED copies/mL (NOT DETECTED); HIV RNA PCR Qn Log Copies NOT DETECTED (NOT DETECTED)
[2025-01-08 23:39] LABS: Absolute CD3 Count 284 cells/uL (840-3060); Absolute CD4 Count 84 cells/uL (490-1740); Absolute CD8 Count 195 cells/uL (180-1170); Absolute Lymphocytes 377 cells/uL (850-3900); CD4 CD8 Ratio 0.43 (0.86-5.00); Percent CD3 Cells 75 % (57-85); Percent CD4 Cells 22 % (30-61); Percent CD8 Cells 52 % (12-42)
[2025-01-10 18:53] LABS: Calprotectin, Fecal 731 mcg/g
== END 2025-01-05 14:57 | disposition home or self-care (01) | DRG 249 ==
LOC: HO.ED 01-03 01:53 → HO.EDOVER 01-03 02:03 → HO.IMC 01-03 17:42
PROVIDERS: Student in an Organized Health Care Education/Training Program; Admitting Provider Internal Medicine; Emergency Provider Internal Medicine; PCP Internal Medicine Geriatric Medicine; Visit Provider Physician Assistant
DX: K52.9 Noninfective gastroenteritis and colitis, unspecified (principal); E87.21 Acute metabolic acidosis; F17.210 Nicotine dependence, cigarettes, uncomplicated; Z21 Asymptomatic human immunodeficiency virus [HIV] infection status; F11.20 Opioid dependence, uncomplicated; E87.6 Hypokalemia; Z71.6 Tobacco abuse counseling; Z86.19 Personal history of other infectious and parasitic diseases; Z20.822 Contact with and (suspected) exposure to COVID-19; Z79.82 Long term (current) use of aspirin; Z79.899 Other long term (current) drug therapy
CPT/HCPCS: 0241U; 36415; 74177; 80048; 80053; 80307; 81001; 81003; 82550; 82947; 83036; 83605; 83690; 83735; 83993; 85007; 85025; 85027; 86359; 86360; 86704; 86705; 86706; 86709; 86803; 87040; 87086; 87177; 87209; 87340; 87493; 87507; 87536; 99285; J0696; J0737; J1171; J1308; J1650; J1836; J1885; J1920; J2270; J2405; J2470; J3360; J7120; Q9967; S9485

== ENCOUNTER → 2025-01-03 01:59 | Outpatient (BNV) | payer MEDICAID, SELFPAY | PROVIDERS: Admitting Provider Internal Medicine; Emergency Provider Internal Medicine; Visit Provider Internal Medicine | DX: K52.9 Noninfective gastroenteritis and colitis, unspecified (principal) | CPT/HCPCS: 99223; 99232; 99499 ==

== ENCOUNTER → 2025-01-03 | Outpatient (BNV) | payer MEDICAID, SELFPAY | PROVIDERS: Emergency Provider Internal Medicine; Visit Provider Radiology Diagnostic Radiology | DX: K52.9 Noninfective gastroenteritis and colitis, unspecified (principal) | CPT/HCPCS: 74177 ==

== ENCOUNTER 2025-01-15 09:28 | Outpatient (REF) | payer MEDICAID, SELFPAY ==
--- OUTSIDE RECORDS SUMMARY | 2025-01-15 09:44 | XMS_ITS | Patient Health Record ---
Author Organization [facility] Address [address] [place] [id number] Care Team Providers Care Insurance Adjustor Name Role Phone Name Ion PINEDO Primary Care Provider Kavon Ferrara [phone] Reason For Referral No Information Plan Of Treatment No Information Insurance Providers Payer Name Payer Address Payer Phone Subscriber Number Group Number Insured Name Patient Relationship to Insured Coverage Start Date Coverage End Date MEDICAID OF [facility] [address] [place] [id number] HUNG FLOREZ Self - patient is the insured
[2025-01-15 10:00] LABS: MANUAL DIFF FLAG NO
[2025-01-15 10:34] LABS: Hematocrit 37.8 % (42.0-52.0); Hemoglobin 12.6 g/dl (14.0-18.0); Imm Gran Abs Auto 0.07 X10*3/uL (0.00-0.03); Imm Gran Pct Auto 0.9 % (0.0-0.4); Lymphocytes Absolute Auto 1.8 X10*3/uL (1.2-4.9); Mean Corpuscular HGB Conc 33.3 g/dl (31.0-36.0); Mean Corpuscular Hemoglobin 30.9 pg (27.0-33.0); Mean Corpuscular Volume 92.6 fL (80.0-98.0); NRBC Abs Auto 0.000 X10*3/uL (0.0-0.012); NRBC Pct Auto 0.0 /100WBC (0.0-0.2); Platelet Count 337 X10*3/uL (160-400); Red Blood Count 4.08 X10*6/uL (4.60-5.80); White Blood Count 8.1 X10*3/uL (4.8-10.8)
[2025-01-15 11:07] LABS: Alanine Aminotransferase 37 U/L (0-40); Albumin Level 4.3 g/dL (3.5-5.0); Alkaline Phosphatase 75 U/L (39-117); Anion Gap 12 (12-20); Aspartate Amino Transferase 22 U/L (5-37); Blood Urea Nitrogen 15 mg/dL (9-16); Calcium 9.3 mg/dL (8.4-10.2); Carbon Dioxide 24 mmol/L (22-29); Chloride 105 mmol/L (96-108); Estimated Glomerular Filt Rate > 60; Potassium 4.2 mmol/L (3.3-5.1); Sodium 137 mmol/L (135-145); Total Protein 6.9 g/dL (6.5-8.0)
[2025-01-16 16:59] LABS: HIV RNA PCR Qn Copies NOT DETECTED copies/mL (NOT DETECTED); HIV RNA PCR Qn Log Copies NOT DETECTED (NOT DETECTED)
[2025-01-20 01:18] LABS: TS Negative Control Passed; TS Panel A 0; TS Panel B 0; TS Positive Control Passed; TSpotTB Negative (Negative)
[2025-01-21 10:34] LABS: Absolute CD3 Count 1458 cells/uL (840-3060); Absolute CD8 Count 1035 cells/uL (180-1170); Percent CD3 Cells 81 % (57-85); Percent CD8 Cells 57 % (12-42)
== END 2025-01-15 09:29 | disposition home or self-care (01) ==
LOC: HO.LAB 09:28
PROVIDERS: PCP Internal Medicine Geriatric Medicine; Visit Provider Internal Medicine
DX: B20 Human immunodeficiency virus [HIV] disease (principal)
CPT/HCPCS: 36415; 80053; 85025; 86359; 86360; 86481; 87536

== ENCOUNTER 2025-02-10 10:55 | Outpatient (REF) | payer MEDICAID, SELFPAY ==
--- NOTE | ~2025-02-10 | XR_ITS ---
EXAMINATION: XR HAND 3 VIEWS BILATERAL HISTORY: bilateral hand pain and stiffness COMPARISON: Comparison is made with the prior examination dated 04/21/2023. FINDINGS: Six views of the bilateral hands are submitted. Osseous mineralization is normal. There is no fracture or dislocation. There is mild osteoarthritis of the DIP joint of the 5th finger. The remaining joint spaces are maintained. The soft tissues are unremarkable. 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 Electronically signed by: Kavon Nguyen MD 02/10/2025 12:06 PM EDT
--- OUTSIDE RECORDS SUMMARY | 2025-02-10 12:14 | XMS_ITS | Patient Health Record ---
Author Organization [facility] Address [address] [place] [id number] Care Team Providers Care [employer] Name Role Phone Name Ion PINEDO Primary Care Provider Kavon Ferrara [phone] Reason For Referral No Information Plan Of Treatment No Information Insurance Providers Payer Name Payer Address Payer Phone Subscriber Number Group Number Insured Name Patient Relationship to Insured Coverage Start Date Coverage End Date MEDICAID OF [facility] [address] [place] [id number] HUNG FLOREZ Self - patient is the insured
[2025-02-10 12:55] LABS: Folate 4.4 ng/mL (> or = 4.0); Vitamin B12 388 pg/mL (200-900)
== END 2025-02-10 10:56 | disposition home or self-care (01) ==
LOC: HO.XRAY 10:55
PROVIDERS: PCP Family Medicine; Visit Provider Family Medicine
DX: M79.641 Pain in right hand (principal); M79.642 Pain in left hand; M25.642 Stiffness of left hand, not elsewhere classified; M25.641 Stiffness of right hand, not elsewhere classified
CPT/HCPCS: 36415; 73130; 82607; 82746; 86038; 86431; 86592

== ENCOUNTER → 2025-02-10 11:14 | Outpatient (BNV) | payer MEDICAID, SELFPAY | PROVIDERS: PCP Family Medicine; Visit Provider Radiology Diagnostic Radiology | DX: M79.642 Pain in left hand (principal); M79.641 Pain in right hand | CPT/HCPCS: 73130 ==

== ENCOUNTER 2025-02-17 03:17 | Emergency (ER) | payer MEDICAID, SELFPAY ==
--- NOTE | ~2025-02-17 | CT_ITS ---
EXAMINATION: CT ABDOMEN PELVIS WITHOUT IV CONTRAST HISTORY: abd pain, vomiting COMPARISON: Comparison is made with the prior examination dated 01/03/2025. TECHNIQUE: CT scan of the abdomen and pelvis was performed without contrast using standard departmental protocol. Coronal and sagittal reformatted images were generated and reviewed. Oral contrast material was not administered at the request of the referring physician. This CT exam was performed with one or more of the following dose reduction techniques: automated exposure control, adjustment of the mA and/or kV according to patient size, use of iterative reconstruction technique. DLP: 549 mGy-cm FINDINGS: LOWER CHEST: There is mild dependent atelectasis at the lung bases. There is no pleural effusion. CARDIOVASCULATURE: The heart is normal in size. There is no pericardial effusion. LIVER: The liver is normal in size and contour, but demonstrates diffusely decreased attenuation, consistent with steatosis. The liver has an unremarkable unenhanced appearance. GALLBLADDER / BILE DUCTS: Again seen is cholelithiasis. There is a calculus in the gallbladder neck without change. There is no intra or extrahepatic biliary ductal dilatation. SPLEEN: The spleen is normal in size and has an unremarkable unenhanced appearance. PANCREAS: There is pancreatic parenchymal atrophy. There is an 8 mm nodule in the pancreatic head, unchanged since 09/11/2020 which may represent a cyst or IPMN. ADRENAL GLANDS: Again seen is fullness of the bilateral adrenal glands. KIDNEYS/RETROPERITONEUM: No renal or ureteral calculi are identified. There is no hydronephrosis or hydroureter. There is a probable 1.5 cm cyst in the interpolar region of the right kidney and a probable 1.3 cm cyst at the upper pole of the left kidney. LYMPH NODES: No retroperitoneal lymphadenopathy is identified in the abdomen or pelvis. VASCULATURE: The abdominal aorta demonstrates atherosclerotic calcification, but is normal in caliber. MESENTERY/PERITONEUM: No free fluid. No masses. There is no free intraperitoneal gas. STOMACH: The stomach is collapsed, limiting evaluation. SMALL BOWEL: The small bowel is normal in caliber. COLON: There is segmental wall thickening of the colon, particularly involving the distal transverse and proximal descending colon, compatible with colitis. APPENDIX: Normal. URINARY BLADDER/PELVIC ORGANS: The urinary bladder is unremarkable. The prostate is normal in size. BONES / SOFT TISSUES: There is degenerative disc disease of the spine. CT/CT abdomen pelvis wo IV con IMPRESSION: 1. Segmental wall thickening of the colon, especially involving the distal transverse and proximal descending colon. Findings are compatible with colitis, which could be infectious, inflammatory, or ischemic in nature. 2. Hepatic steatosis. 3. Cholelithiasis. Electronically signed by: Kavon Nguyen MD 02/17/2025 08:56 AM EDT
[2025-02-17 03:20] VITALS: BP 176/84; PULSE 84; RESP 20; TEMP 36.2; O2SAT 98; BMI 32.3
[2025-02-17 04:53] LABS: Alanine Aminotransferase 35 U/L (0-40); Albumin Level 4.8 g/dL (3.5-5.0); Alkaline Phosphatase 107 U/L (39-117); Anion Gap 16 (12-20); Aspartate Amino Transferase 31 U/L (5-37); Blood Urea Nitrogen 16 mg/dL (9-16); Calcium 9.7 mg/dL (8.4-10.2); Carbon Dioxide 19 mmol/L (22-29); Chloride 106 mmol/L (96-108); Creatinine Clr Calc Pharmacy 86.8; Estimated Glomerular Filt Rate > 60; Lipase 17 U/L (8-78); Potassium 3.8 mmol/L (3.3-5.1); Sodium 137 mmol/L (135-145); Total Protein 8.0 g/dL (6.5-8.0)
[2025-02-17 05:03] LABS: Resp Syncy Virus RNA Qual PCR NEGATIVE (Negative); SARS COV2 PCR INHOUSE NEGATIVE (Negative)
[2025-02-17 05:38] LABS: Hematocrit 41.7 % (42.0-52.0); Hemoglobin 14.6 g/dl (14.0-18.0); Imm Gran Abs Auto 0.06 X10*3/uL (0.00-0.03); Imm Gran Pct Auto 0.4 % (0.0-0.4); Lymphocytes Absolute Auto 0.7 X10*3/uL (1.2-4.9); Mean Corpuscular HGB Conc 35.0 g/dl (31.0-36.0); Mean Corpuscular Hemoglobin 31.7 pg (27.0-33.0); Mean Corpuscular Volume 90.7 fL (80.0-98.0); NRBC Abs Auto 0.000 X10*3/uL (0.0-0.012); NRBC Pct Auto 0.0 /100WBC (0.0-0.2); Platelet Count 262 X10*3/uL (160-400); Red Blood Count 4.60 X10*6/uL (4.60-5.80); White Blood Count 16.0 X10*3/uL (4.8-10.8)
[2025-02-17 06:02] LABS: Appearance Urine Clear; Glucose Urine UA >=1000 mg/dL (Negative); PH 5.5 (5.0-9.0); Specific Gravity - Urine 1.020 (1.005-1.025); UMIC TRIGGER UACC YES
--- NOTE | 2025-02-17 06:40 | PC.NURSE ---
Pt endorsing lower abdominal pain that started round 10pm. pt reports he smoked marijuana around 10pm as well.
[2025-02-17 06:48] VITALS: BP 171/81; PULSE 102; RESP 20; TEMP 36.6; O2SAT 97
--- NOTE | 2025-02-17 06:55 | ED.ABDPAIN ---
HPI - Abdominal Pain General Chief Complaint: Abdominal Pain Stated Complaint: n/v Time Seen by Provider: 02/17/25 06:55 Source: patient Mode of arrival: ambulatory Limitations: language barrier History of Present Illness ED Provider: Dr. Maddy Rueda HPI narrative: 64-year-old male with a history of opioid use disorder on methadone, history of IV drug abuse presenting with lower abdominal pain that began around 10:00 p.m. last night. Describes pain as a severe cramp that is across his lower abdomen. Associated with several episodes of nausea and vomiting this morning. No reported bowel movements. No recorded fever. Had been feeling well prior to this. Does admit to using marijuana last night for the 1st time in a long time. Has never had this type of reaction to marijuana before. No testicular pain or swelling. Related Data Home Medications ?Medication ?Instructions ?Recorded ?Confirmed methadone 10 mg/5 mL oral solution 85 mg PO DAILY 11/03/20 01/03/25 prazosin 2 mg capsule 2 mg PO DAILY 11/03/20 01/03/25 quetiapine 400 mg tablet (Seroquel) 400 mg PO BEDTIME 11/03/20 01/03/25 spironolactone 50 mg tablet 50 mg PO DAILY 05/04/23 01/03/25 aspirin 325 mg tablet,delayed 325 mg PO DAILY 01/03/25 01/03/25 release docusate sodium 100 mg capsule 100 mg PO BID 01/03/25 01/03/25 emtricitabine 200 mg-rilpivirine 1 tab PO DAILY 01/03/25 01/03/25 25 mg-tenofovir alafenam 25 mg tablet (Odefsey) ondansetron 4 mg disintegrating 4 mg PO Q6H PRN nausea and vomiting 01/03/25 01/03/25 tablet sennosides 8.6 mg capsule (senna) 8.6 mg PO BEDTIME constipation 01/03/25 01/03/25 sildenafil 100 mg tablet (Viagra) 100 mg PO DAILY PRN Erectile 01/03/25 01/03/25 Dysfunction Previous Rx's ?Medication ?Instructions ?Recorded famotidine 40 mg tablet 40 mg PO DAILY #90 tabs 12/19/23 cefuroxime axetil 500 mg tablet 500 mg PO BID #14 tabs 01/05/25 metronidazole 500 mg tablet 500 mg PO Q8H #21 tabs 01/05/25 ondansetron 4 mg disintegrating 4 mg PO TID PRN nausea and 02/17/25 tablet vomiting 5 days #10 tabs Allergies Allergy/AdvReac Type Severity Reaction Status Date / Time No Known Allergies Allergy Verified 02/17/25 03:22 Review of Systems Review of Systems as per HPI, full review of systems performed and negative but for the above mentioned pertinent positives and negatives. [facility] Past Medical History Medical History GERD (gastroesophageal reflux disease) Pre-op examination Prostate cancer HIV (human immunodeficiency virus infection) Surgical History History of esophagogastroduodenoscopy (EGD) Hx of removal of cyst Family History Family History Family/Other No problems noted. Social History Social History Household Members: Family Household Members Other:: Daughter Housing: Apartment Do you presently have visiting nurse or other home services: No Alcohol intake: never Patient Tobacco Use Status: Current everyday Tobacco user Tobacco use type: Cigarette Cigarette Packs Per Day: 1 Cigarettes Per Day: 20.0 Smoked in Last 30 Days: No Use of substances other than those prescribed or required for medical reasons: Yes Substance Use Type: Former Substance User and Marijuana Advance Directives: No Advance Directives Information Provided: No service: No Physical Exam ED Vital Signs: Vital Signs - 24 hr 02/17/25 03:20 02/17/25 06:48 02/17/25 08:00 Temperature 97.2 F 97.8 F 98.9 F Pulse Rate 84 102 H 95 Respiratory Rate 20 20 16 Blood Pressure 176/84 H 171/81 H 165/75 H Pulse Oximetry 98 97 97 Oxygen Delivery Method Room Air Room Air Room Air BMI result Body Mass Index 32.3 GENERAL: Unkempt, appears uncomfortable. SKIN: Normal skin color for ethnicity, warm, dry, no rashes noted. HEENT: Normocephalic, atraumatic, no stridor, posterior oropharynx nonerythematous, dentition intact, EOMI. NECK: Soft, supple, full ROM, midline structures nontender, no step-offs, no deformities, no lymphadenopathy. CHEST: Heart regular rate and rhythm, no murmurs, symmetric chest rise and fall. PULMONARY: Clear to auscultation bilaterally, no labored breathing, no wheezes/rhales/ rhonchi. ABDOMINAL: Soft, nondistended, diffusely tender to palpation with voluntary guarding, positive bowel sounds in all quadrants. : Deferred. MUSCULOSKELETAL: Normal tone, full range of motion, no deformities, no peripheral edema. NEURO: Alert and oriented x3, CN II through XII intact, equal strength and sensation bilateral upper and lower extremities, no focal neurologic deficits. PSYCHIATRIC: Flat affect, poor eye contact, withdrawn Medical Decision Making Medical Decision Making [facility] Narrative: This patient presents today with a chief complaint of abdominal pain, vomiting. Differential diagnosis for this patient is broad. It includes cannabinoid hyperemesis, appendicitis, cholecystitis, bowel obstruction, peptic ulcer disease, pyelonephritis, vascular pathology, among many others. A broad-based workup based on history and physical examination was obtained. 7:11 AM 02/17/2025 (Dr. Maddy Rueda, D.O.) signing out to oncoming provider pending CT results and final disposition. Patient remains afebrile, resting comfortably after Haldol. No further episodes of emesis. 11:[address] scan showed no acute evidence of obstruction no abscess no perforation question mild inflammation. Will discharge patient home patient's has no abdominal pain on recheck. Is tolerating p.o.. We gave him a p.o. trial here. Will discharge follow-up outpatient. Zofran for nausea. Differential Diagnosis Differential Diagnoses: The differential diagnosis associated with the presentation includes (As above) Admission/Observation Consideration of admission/observation: Escalation of care including admission/observation considered Lab Data [facility] Lab Attestation statement: I reviewed the patient's lab results. Leukocytosis with neutrophilic predominance, no bandemia, no anemia 02/17/25 05:34 02/17/25 04:21 Labs: Lab Results 02/17/25 02/17/25 02/17/25 Range/Units 04:21 05:34 05:55 WBC 16.0 H (4.8-10.8) X10*3/uL RBC 4.60 (4.60-5.80) X10*6/uL Hgb 14.6 (14.0-18.0) g/dl Hct 41.7 L (42.0-52.0) % MCV 90.7 (80.0-98.0) fL MCH 31.7 (27.0-33.0) pg MCHC 35.0 (31.0-36.0) g/dl RDW 14.4 (11.0-16.0) % Plt Count 262 (160-400) X10*3/uL MPV 9.5 (9.4-12.4) fL Immature Gran % (Auto) 0.4 (0.0-0.4) % Neut % (Auto) 89.8 H (45-73) % Lymph % (Auto) 4.3 L (20-40) % Blair % (Auto) 5.1 (2-11) % Eos % (Auto) 0.1 (0-4) % Baso % (Auto) 0.3 (0-2) % Lymph # (Auto) 0.7 L (1.2-4.9) X10*3/uL Blair # (Auto) 0.8 (0.1-1.2) X10*3/uL Eos # (Auto) 0.0 (0.0-0.4) X10*3/uL Baso # (Auto) 0.1 (0.0-0.2) X10*3/uL Abs Immat Gran (auto) 0.06 H (0.00-0.03) X10*3/uL Absolute Neuts (auto) 14.4 H (2.0-8.3) x10*3/uL Absolute Nucleated RBC 0.000 (0.0-0.012) X10*3/uL Nucleated RBC % (auto) 0.0 (0.0-0.2) /100WBC Sodium 137 (135-145) mmol/L Potassium 3.8 (3.3-5.1) mmol/L Chloride 106 (96-108) mmol/L Carbon Dioxide 19 L (22-29) mmol/L Anion Gap 16 (12-20) BUN 16 (9-16) mg/dL Creatinine 0.93 (0.5-1.4) mg/dL Estim Creat Clear Calc 86.8 Estimated GFR > 60 Random Glucose 192 H (60-115) mg/dL Calcium 9.7 (8.4-10.2) mg/dL Total Bilirubin 0.5 (0.0-1.0) mg/dL AST 31 (5-37) U/L ALT 35 (0-40) U/L Alkaline Phosphatase 107 (39-117) U/L Total Protein 8.0 (6.5-8.0) g/dL Albumin 4.8 (3.5-5.0) g/dL Lipase 17 (8-78) U/L Urine Color Dark Yellow Urine Appearance Clear Urine pH 5.5 (5.0-9.0) Ur Specific [place] 1.020 (1.005-1.025) Urine Protein Trace (Neg-Trace) mg/dL Urine Glucose (UA) >=1000 H (Negative) mg/dL Urine Ketones 15 (Negative) mg/dL Urine Blood Trace H (Negative) Urine Nitrite Negative (Negative) Ur Leukocyte Esterase Negative (Negative) Urine RBC 6-10 H (0-2) /HPF Urine WBC 0-5 (0-5) /HPF Ur Squamous Epith Cells 0-2 (0-2) /HPF Urine Bacteria None Seen (None Seen) Hyaline Casts 0-2 (0-2) /LPF Influenza Type A (PCR) NEGATIVE (Negative) Influenza Type B (PCR) NEGATIVE (Negative) RSV RNA Qual (PCR) NEGATIVE (Negative) SARS-CoV-2 RNA (RT-PCR) NEGATIVE (Negative) Medications Administered Discontinued Medications Generic Name Dose Route Start Last Admin Trade Name Freq PRN Reason Stop Dose Admin Haloperidol Lactate 5 mg 02/17/25 05:36 02/17/25 05:49 Haloperidol Lactate 5 Mg/Ml Vial IM 02/17/25 05:37 5 mg STAT STA Administration Discharge Plan Discharge Clinical Impression: Gastroenteritis Patient Disposition: Home, Self-Care Instructions: Gastroenteritis (ED), Acute Nausea and Vomiting (ED) Prescriptions: New ondansetron 4 mg tablet,disintegrating 4 mg PO TID PRN (Reason: nausea and vomiting) 5 Days Qty: 10 0RF No Action aspirin 325 mg tablet,delayed release (DR/EC) 325 mg PO DAILY docusate sodium 100 mg capsule 100 mg PO BID Odefsey 200-25-25 mg tablet 1 tab PO DAILY ondansetron 4 mg tablet,disintegrating 4 mg PO Q6H PRN (Reason: nausea and vomiting) senna 8.6 mg capsule 8.6 mg PO BEDTIME sildenafil [Viagra] 100 mg tablet 100 mg PO DAILY PRN (Reason: Erectile Dysfunction) cefuroxime axetil 500 mg tablet 500 mg PO BID Qty: 14 0RF metronidazole 500 mg tablet 500 mg PO Q8H Qty: 21 0RF prazosin 2 mg capsule 2 mg PO DAILY quetiapine [Seroquel] 400 mg tablet 400 mg PO BEDTIME methadone 10 mg/5 mL solution 85 mg PO DAILY spironolactone 50 mg tablet 50 mg PO DAILY famotidine 40 mg tablet 40 mg PO DAILY Qty: 90 2RF Referrals: [place],[facility] [Primary Care Provider, Medical] Print Language: Martiniquais
[2025-02-17 08:00] VITALS: BP 165/75; PULSE 95; RESP 16; TEMP 37.2; O2SAT 97
[2025-02-17 08:39] LABS: MANUAL DIFF FLAG NO
--- NOTE | 2025-02-17 08:57 | PC.NURSE ---
Patient is a 64 years old man with past medical history significant for HIV on HAARTs ([place]), hypertension, GERD and opiate dependence on methadone presents to the emergency department complaining of severe generalized abdominal pain associated N/V. Patient resting comfortably. No n/v noted at this time. Lungs clear bilat. Respirations even and non-labored. Abdomen soft with positive bowel sounds. No discomfort noted at this time. Positive pedal pulses with no edema.
[2025-02-17 11:39] VITALS: BP 165/75; PULSE 95; RESP 16; TEMP 37.2; O2SAT 97
== END 2025-02-17 11:40 | disposition home or self-care (01) ==
PROVIDERS: Emergency Provider Emergency Medicine
DX: K52.9 Noninfective gastroenteritis and colitis, unspecified (principal); F11.21 Opioid dependence, in remission; T40.2X5A Adverse effect of other opioids, initial encounter; R11.2 Nausea with vomiting, unspecified; K21.9 Gastro-esophageal reflux disease without esophagitis
CPT/HCPCS: 74176; 80053; 81001; 81003; 83690; 85025; 87637; 96372; 99284; J1630

== ENCOUNTER → 2025-02-17 07:05 | Outpatient (BNV) | payer MEDICAID, SELFPAY | PROVIDERS: Emergency Provider Emergency Medicine; Visit Provider Radiology Diagnostic Radiology | DX: K80.20 Calculus of gallbladder without cholecystitis without obstruction (principal); K76.0 Fatty (change of) liver, not elsewhere classified; K63.89 Other specified diseases of intestine | CPT/HCPCS: 74176 ==

== ENCOUNTER → 2025-03-27 12:21 | Outpatient (BNVA) | payer MEDICAID, SELFPAY | PROVIDERS: Visit Provider Nurse Practitioner | DX: B20 Human immunodeficiency virus [HIV] disease (principal); K21.9 Gastro-esophageal reflux disease without esophagitis; K59.00 Constipation, unspecified; F11.20 Opioid dependence, uncomplicated | CPT/HCPCS: 99212 ==

== ENCOUNTER 2025-05-15 13:07 | Outpatient (REF) | payer MEDICAID, SELFPAY ==
--- NOTE | ~2025-05-15 | MM_ITS ---
EXAMINATION: DXA BONE DENSITY AXIAL HISTORY: m89.9 TECHNIQUE: [employer] Dual energy absorptiometry (DEXA) of the lumbar spine, total left hip, and femoral neck was performed. COMPARISON: Comparison is made with the prior examination dated October 2017. FINDINGS: The bone mineral density of the lumbar spine from L1-L2 (L3 and L4 excluded due to degenerative change) is 1.179 g/cm2, corresponding to a T-score of -0.2, and a Z-score of 0.3. This is indicative of normal bone mineral density. This represents a BMD change of 3.8% compared to the prior exam. The bone mineral density of the left total hip is 0.839 g/cm2, corresponding to a T-score of -1.8, and a Z-score of -1.3. This is indicative of osteopenia. This represents a BMD change of -1.8% compared to the prior exam. The bone mineral density of the left femoral neck is 0.861 g/cm2, corresponding to a T-score of -1.6, and a Z-score of -0.6. This is indicative of This represents a BMD change of 5.4% compared to the prior exam. FRACTURE RISK: The FRAX index suggests a ten year probability of major osteoporotic fracture of 6.8%, and of hip fracture 0.9%. MM/XR DEXA axial skeleton IMPRESSION: Based on bone mineral density, and according to World Health Organization (WHO) criteria, the diagnosis is consistent with osteopenia based on lowest T score of -1.8 in the left total femur. Statistically, 68% of repeat scans fall within 1 SD (+/- 0.010 g/cm2 for AP spine L1-L4) and 1 SD (+/- 0.012 g/cm2 for femur total) FRAX is a trademark of the [employer] [facility] [facility] [employer], a World Health Organization (WHO) Collaborating Center. Electronically signed by: Karmen Loya MD 05/15/2025 03:26 PM EDT
--- OUTSIDE RECORDS SUMMARY | 2025-05-15 16:01 | XMS_ITS | Clinical Summary ---
Author Organization [facility] Address [address] [place] [phone] Phone Care Team Providers Care Animal Biologist Name Role Phone Name, Ion PINEDO Primary Care Provider [phone] Allergies No known active allergies Medications No known medications Encounters Date Type Department Care Team Description 04/22/2025 1:00 PM EDT Consult Orthopedic Surgery [facility] [address] [phone] Morro Lopez DPM Pain in both feet (Primary Dx); Arthritis of both feet; Hammertoes of both feet; Dermatophytosis, nail from Last 3 Months Social History Tobacco Use Types Packs/Day Years Used Date Smoking Tobacco: Never Assessed Sex and Gender Information Value Date Recorded Sex Assigned at Not on file Legal Sex Male 10:04 AM EST Gender Identity Not on file Sexual Orientation Not on file Plan of Treatment Upcoming Encounters Date Type Department Care Team ([facility] st Contact Info) Description 06/26/2025 2:15 PM EST Office Visit Orthopedic [facility] [address] [phone] Morro Lopez DPM [address] [place] [phone] Health Maintenance Due Date Last Done Comments Colorectal Cancer Screening: Colonoscopy 1962 Zoster Vaccines (1 of 2) 2012 Depression Screening 07/17/2024 Cholesterol Screening (Lipid Panel) 01/10/2025 HIV Screening 01/10/2025 Hepatitis C Screening 01/10/2025 Social Influencers of Health Screening 01/10/2025 COVID-19 Vaccine ( season) 2025 08/10/2021, 10/13/2020, 09/15/2020 Influenza Vaccine (#1) 2025 05/07/2001 DTaP,Tdap,and Td Vaccines (6 - Td or Tdap) 02/27/2035 02/27/2025, 11/10/2022, 03/20/2012, Additional history exists RSV Immunization Adult Patients (1 - 1-dose 75+ series) 2037 Hepatitis B Vaccines Completed 05/07/2001, 11/23/2000, 10/03/2000 MMR Vaccines Aged Out 03/20/2012 No longer eligi ble based on patient's age to complete this topic Pneumococcal Vaccine: 50+ Years Completed 08/15/2024, 10/19/2017, 10/03/2000 Meningococcal ACWY Vaccine Aged Out 02/27, 05/17/2018, 10/19/2017 No longer eligible based on patient's age to complete this topic HIB Vaccines Aged Out No longer eligi ble based on patient's age to complete this topic HPV Vaccines Aged Out No longer eligi ble based on patient's age to complete this topic Hepatitis A Vaccines Aged Out No long er eligible based on patient's age to complete this topic IPV Vaccines Aged Out No longer eligi ble based on patient's age to complete this topic Meningococcal B Vaccine Aged Out No l onger eligible based on patient's age to complete this topic RSV Immunization Patients Under 20 months Aged Out No longer eligible based on patient's age to complete this topic Varicella Vaccines Aged Out No longer eligible based on patient's age to complete this topic Insurance MEDICAID - [place] Care Teams Animal Biologist Relationship Specialty Start Date End Date Name, MD Ion [address] [place], [place] [id number] PCP - General Internal Medicine 01/10/25
--- OUTSIDE RECORDS SUMMARY | 2025-05-15 16:01 | XMS_ITS | Patient Health Record ---
Author Organization [facility] Address [address] [place] [phone] Care Team Providers Care Manager Strategic Development Name Role Phone Name Ion PINEDO Primary Care Provider Kavon Ferrara [phone] Reason For Referral No Information Plan Of Treatment No Information Insurance Providers Payer Name Payer Address Payer Phone Subscriber Number Group Number Insured Name Patient Relationship to Insured Coverage Start Date Coverage End Date MEDICAID OF [facility] [address] [place] [phone] [id number] HUNG FLOREZ Self - patient is the insured
== END 2025-05-15 13:08 | disposition home or self-care (01) ==
LOC: HO.MAMMO 13:07
PROVIDERS: PCP Internal Medicine Geriatric Medicine; Visit Provider Internal Medicine
DX: Z13.820 Encounter for screening for osteoporosis (principal); M89.9 Disorder of bone, unspecified; M85.852 Other specified disorders of bone density and structure, left thigh
CPT/HCPCS: 77080

== ENCOUNTER → 2025-05-15 13:30 | Outpatient (BNV) | payer MEDICAID, SELFPAY | PROVIDERS: PCP Internal Medicine Geriatric Medicine; Visit Provider Radiology Diagnostic Radiology | DX: M89.9 Disorder of bone, unspecified (principal) | CPT/HCPCS: 77080 ==

== ENCOUNTER 2025-05-29 10:32 | Outpatient (REF) | payer MEDICAID, SELFPAY ==
[2025-05-29 11:33] LABS: MANUAL DIFF FLAG NO
[2025-05-29 11:40] LABS: Hematocrit 41.9 % (42.0-52.0); Hemoglobin 14.3 g/dl (14.0-18.0); Imm Gran Abs Auto 0.03 X10*3/uL (0.00-0.03); Imm Gran Pct Auto 0.4 % (0.0-0.4); Lymphocytes Absolute Auto 2.5 X10*3/uL (1.2-4.9); Mean Corpuscular HGB Conc 34.1 g/dl (31.0-36.0); Mean Corpuscular Hemoglobin 31.9 pg (27.0-33.0); Mean Corpuscular Volume 93.5 fL (80.0-98.0); NRBC Abs Auto 0.000 X10*3/uL (0.0-0.012); NRBC Pct Auto 0.0 /100WBC (0.0-0.2); Platelet Count 241 X10*3/uL (160-400); Red Blood Count 4.48 X10*6/uL (4.60-5.80); White Blood Count 8.5 X10*3/uL (4.8-10.8)
--- OUTSIDE RECORDS SUMMARY | 2025-05-29 12:54 | XMS_ITS | Patient Health Record ---
Author Organization [facility] Address [address] [place] [phone] Care Team Providers Care Product Marketing Engineer Name Role Phone Name Ion PINEDO Primary Care Provider Kavon Ferrara [phone] Reason For Referral No Information Plan Of Treatment No Information Insurance Providers Payer Name Payer Address Payer Phone Subscriber Number Group Number Insured Name Patient Relationship to Insured Coverage Start Date Coverage End Date MEDICAID OF [facility] [address] [place] [address] [id number] HUNG FLOREZ Self - patient is the insured
--- OUTSIDE RECORDS SUMMARY | 2025-05-29 12:54 | XMS_ITS | Clinical Summary ---
Author Organization [facility] Address [address] [place] [phone] Phone Care Team Providers Care Production Superintendent Name Role Phone Name, Ion PINEDO Primary Care Provider [phone] Allergies No known active allergies Medications No known medications Encounters Date Type Department Care Team Description 04/22/2025 1:00 PM EDT Consult Orthopedic Surgery [facility] [address] [phone] Morro Lopez DPM Pain in both feet [...] Upcoming Encounters Date Type Department Care Team (Late st Contact Info) Description 06/26/2025 2:15 PM EST Office Visit Orthopedic Surgery [facility] [address] [phone] Morro Lopez DPM [address] [phone] Health Maintenance Due Date Last Done Comments [...] topic Insurance MEDICAID - [place] Care Teams Production Superintendent Relationship Specialty Start Date End Date Name, MD Ion [address] [place], [place] [phone] PCP - General Internal Medicine 01/10/25
[2025-05-29 14:32] LABS: Alanine Aminotransferase 16 U/L (0-40); Albumin Level 4.9 g/dL (3.5-5.0); Alkaline Phosphatase 86 U/L (39-117); Anion Gap 16 (12-20); Aspartate Amino Transferase 23 U/L (5-37); Blood Urea Nitrogen 14 mg/dL (9-16); Calcium 9.9 mg/dL (8.4-10.2); Carbon Dioxide 25 mmol/L (22-29); Chloride 106 mmol/L (96-108); Estimated Glomerular Filt Rate > 60; Potassium 4.2 mmol/L (3.3-5.1); Sodium 143 mmol/L (135-145); Total Protein 7.7 g/dL (6.5-8.0)
== END 2025-05-29 10:33 | disposition home or self-care (01) ==
LOC: HO.HHCL 10:32
PROVIDERS: PCP Nurse Practitioner Primary Care; Visit Provider Nurse Practitioner Primary Care
DX: R42 Dizziness and giddiness (principal); R00.2 Palpitations
CPT/HCPCS: 36415; 80053; 83036; 84443; 85025